=== PATIENT | male | born 1995 | race Caucasian/White ===

== ENCOUNTER 2021-08-11 17:49 | Emergency (ER) | payer MEDICAID, SELFPAY ==
[2021-08-11 18:01] VITALS: BP 128/84; PULSE 108; RESP 18; TEMP 36.7; O2SAT 96; BMI 19.5
--- NOTE | 2021-08-11 18:09 | W.ED.DENTAL ---
HPI - Dental/Oral General: Chief complaint: Dental/Oral Stated complaint: sore in mouth Time Seen by Provider: 08/11/21 18:08 History of Present Illness: Patient is a 26-year-old male comes to the ED with dental pain. Symptoms started a couple days ago. Pain is located in the right upper molar region. He has pain, tenderness and swelling of his gums. Patient is currently trying to call around to get set up with a dentist. Denies any fever, nausea or any other symptoms. Associated symptoms: Denies fever(s) or odynophagia Review of Systems Const: Denies: fever(s), chills or fatigue Eyes: Denies: change in vision or eye discomfort ENMT: Reports: dental pain; Denies: throat pain, odynophagia, nasal discharge or nasal congestion Card: Denies: chest pain, palpitations, edema, swelling of feet/ankles, dyspnea on exertion or orthopnea Resp: Denies: dyspnea, productive cough or non-productive cough GI: Denies: abdominal pain, nausea, vomiting, diarrhea, constipation or hematochezia : Denies: flank pain, difficulty urinating, dysuria or hematuria Musc: Denies: neck pain, back pain or extremity swelling Skin/Breast: Denies: rash or new lesions Neuro: Denies: headache(s), numbness in extremities or weakness in extremities [facility] ED PFSH: Medical History (Updated 08/11/21 @ 18:28 by DAMION Najera) No pertinent family history Surgical History (Updated 08/11/21 @ 18:28 by DAMION Najera) No pertinent past surgical history Physical Exam Const: COMMON NORMALS: no acute distress, patient oriented x3 and alert GENERAL APPEARANCE: cooperative and comfortable HENMT: COMMON NORMALS: normocephalic HEAD & SCALP: normocephalic MOUTH: Normal oral and palatal mucosa present TEETH & GINGIVA: Yes abnormal tooth and associated gingiva upper right second molar tender and with associated gingival edema THROAT: posterior oropharynx normal and uvula midline Eye: COMMON NORMALS: Equal, round and reactive pupils present and conjunctivae normal CONJUNCTIVA: Yes conjunctivae normal PUPIL: Yes Equal, round and reactive pupils present Neck/C-Spine: COMMON NORMALS: supple GENERAL: Yes normal visual inspection Resp: COMMON NORMALS: normal respiratory effort, No retractions, No use of accessory muscles and clear to auscultation bilaterally AUSCULTATION: clear to auscultation bilaterally Cardio: COMMON NORMALS: regular rate, regular rhythm, S1 normal heart sound present, S2 normal heart sound present, No gallops present (Cardio), No clicks present (Cardio), No murmurs present (Cardio) and Peripheral pulses 2+ throughout RATE: regular rate RHYTHM: regular rhythm HEART SOUNDS: S1 normal heart sound present and S2 normal heart sound present PERIPHERAL PULSES: Peripheral pulses 2+ throughout GI: COMMON NORMALS: Normal to inspection, nondistended, normoactive bowel sounds present, Soft to palpation, non-tender and no masses PALPATION: Yes Soft to palpation : COMMON NORMALS: Yes no CVA tenderness BLADDER/KIDNEY EXAM: Yes no CVA tenderness Back/Pelvis: COMMON NORMALS: no CVA tenderness Extremity: COMMON NORMALS: normal to inspection Neuro: COMMON NORMALS: patient oriented x3 and moves all extremities SENSORIUM/ORIENTATION: Yes alert Skin: GENERAL SKIN EXAM: dry skin Course Vital Signs: Vital signs: Vital Signs Temperature 98.1 F 08/11/21 18:01 Pulse Rate 108 H 08/11/21 18:01 Respiratory Rate 18 08/11/21 18:01 Blood Pressure 128/84 08/11/21 18:01 Pulse Oximetry 96 08/11/21 18:01 [facility] - Dental/Oral Medical Decision Making Patient is a 26-year-old male comes to the ED with dental pain. Exam shows some gingival edema and tenderness around second molar of upper right jaw. Vitals are stable and patient appears nontoxic and in no acute distress or pain. He was diagnosed with dental infection and discharged home with a prescription for clindamycin and some lidocaine viscous. Told to follow-up with dentist as soon as possible to have dental pain evaluated. Return to ED precautions given. Patient understood and agreed with plan. Discharge Plan Discharge Patient Disposition: Home Clinical Impression: Dental infection Condition: Stable Prescriptions: New clindamycin HCl 150 mg capsule 300 mg PO QID 7 Days Qty: 56 0RF Lidocaine Viscous 2 % solution 1 applic mucous membrane BID PRN (Reason: pain) Qty: 100 0RF Discharge Orders: Discharge ED (Routine); Ordered 08/11/21 Ordered By: Paras Tomlinson Discharge Diet: Regular Discharge Activity: Resume usual activity Activity Restrictions/Additional Instructions: Call a dentist and get set up with an appointment with them as soon as possible. Take medications as prescribed. Return to the ER or your medical provider if condition worsens. Please read and understand discharge instructions. Thank you for choosing [facility] for your healthcare needs today. Please realize this is an emergency room and that we are providing you with a medical screening exam and this may not be complete and all inclusive of all the testing and or work up that you may need to determine your ailment or severity of your illness. It is very important that you follow up as instructed or that you return to the Emergency Department should you have concerns or if your condition changes or worsens in any way. Coding Level of Care Code ED Bar[facility] [employer] Tacker for Audelia Fwwong Exam Comprehensive
[2021-08-11] MEDS: clindamycin 150 mg Capsule 300 MG PO (18:55)
== END 2021-08-11 18:56 | disposition home or self-care (01) ==
PROVIDERS: Emergency Provider Physician Assistant
DX: K04.7 Periapical abscess without sinus (principal)
CPT/HCPCS: 99283

== ENCOUNTER 2022-05-13 08:18 | Emergency (ER) | payer MEDICAID, SELFPAY ==
[2022-05-13 08:38] VITALS: BP 160/114; PULSE 100; RESP 14; TEMP 37.2; O2SAT 96; BMI 18.4
--- NOTE | 2022-05-13 08:42 | ED_ITS ---
HPI - General Adult General: Chief complaint: Skin/Abscess/Foreign Body Stated complaint: possible allergic reaction Time Seen by Provider: 05/13/22 08:27 Source: patient Mode of arrival: ambulatory History of Present Illness: 27-year-old male presents emergency room with severe anxiety and complains of a rash on his forearm. He related to using a new cologne. He is extremely anxious. He states he took a couple of shots befo re he came in he is mildly tachycardic he is also complaining of dental pain. He been seen several times he has been on antibiotics but it seems to persist has been referred to dentist but has not seen there. Onset (ago): hour(s) Location: mouth and upper extremity Severity: mild Pain Consistency: constant Relieving factors: none Exacerbating factors: none Associated symptoms: Reports rash; Deny chest pain, confusion, cough, diaphoresis, decreased appetite, dyspnea, fevers/chills, headache(s), malaise, nausea, palpitations, seizures, short of breath, vomiting, weakness or other Review of Systems Const: Denies: fever(s), chills, fatigue, malaise or diaphoresis ENMT: Reports: mouth pain, oral sores and dental pain; Denies: throat pain, swelling of lips/tongue, ear or mastoid pain, nasal discharge or nasal congestion Card: Denies: chest pain or palpitations Resp: Denies: dyspnea GI: Denies: nausea or vomiting Skin/Breast: Reports: rash Neuro: Denies: headache(s) or confusion PFSH ED PFSH: Medical History ADHD Broken jaw Generalized anxiety disorder Major depressive disorder No pertinent family history Panic disorder PTSD (post-traumatic stress disorder) Seizures Surgical History No pertinent past surgical history Family History Mother Anxiety Grandfather Heart disease Stroke Anxiety Dementia Social History Smoking and tobacco status: current some day smoker Alcohol intake: current Alcohol intake frequency: few times a week Alcohol type: beer and hard liquor Marital status: Single service: No Current occupational status: unemployed and disabled Current gender identity: Male Special annika needs: No Physical Exam Const: COMMON NORMALS: no acute distress GENERAL APPEARANCE: cooperative, comfortable and anxious ORIENTATION/CONSCIOUSNESS: Yes awake, Yes oriented to person, Yes oriented to place and Yes oriented to time HENMT: COMMON NORMALS: normocephalic, atraumatic and hearing grossly normal bilaterally HEAD & SCALP: normocephalic and atraumatic Resp: COMMON NORMALS: normal respiratory effort, No retractions, No use of accessory muscles and clear to auscultation bilaterally AUSCULTATION: clear to auscultation bilaterally Cardio: COMMON NORMALS: regular rate, regular rhythm and No murmurs present (Cardio) RATE: regular rate RHYTHM: regular rhythm Extremity: COMMON NORMALS: normal to inspection, capillary refill normal, no clubbing, cyanosis or edema, no calf tenderness and no pedal edema Neuro: SENSORIUM/ORIENTATION: Yes oriented to person, Yes oriented to place and Yes oriented to time Skin: OTHER: Noticed on the ulnar ridge of the right arm no vesicles no excoriation noted induration no signs of infection Course Vital Signs: Vital signs: Vital Signs Temperature 98.9 F 05/13/22 08:38 Pulse Rate 100 05/13/22 08:38 Respiratory Rate 14 05/13/22 08:38 Blood Pressure 160/114 05/13/22 08:38 Pulse Oximetry 96 05/13/22 08:38 Oxygen Delivery Me thod 05/13/22 08:38 MDM - General Adult Medical Decision Making Estuardo. He does have some swelling in gums but no identifiable abscess mostly on the right side in the upper and lower molars. There is no submandibular lympha denopathy. Discharge patient home recommend Augmentin 3 times daily for 7 days follow-up with dentist. For the rash apply triamcinolone twice daily. Medical Records I reviewed the patient's medical records. Lab Data I reviewed the patient's lab results. Discharge Plan Discharge Patient Disposition: Home Clinical Impression: Tooth disorder, Dermatitis Condition: Stable Prescriptions: New triamcinolone acetonide 0.5 % ointment 1 applic topical BID Qty: 15 0RF Rx Instructions: Apply topically to the area affected on the forearm twice daily until it resolves. Augmentin 500-125 mg tablet 1 tab PO TID Qty: 21 0RF No Action clonazepam 0.5 mg tablet 0.5 mg PO TID Qty: 90 1RF Discharge Orders: Discharge ED (Routine); Ordered 05/13/22 Ordered By: Jeff Neal Referrals: Carola Martel MD [Primary Care Provider] - Discharge Diet: Usual diet Discharge Activity: Resume usual activity Patient Instructions: Opioid Safety, Pain Management Activity Restrictions/Additional Instructions: You were seen today for pain in the right side of your jaw as well as a rash on your right forearm. For the antibiotics 1 3 times daily for 1 week and recommen d he follow-up with a dentist for the rash on the forearm recommend you apply the topical steroid twice daily until resolved. If any further problems follow- up with your primary care doctor. Coding Level of Care Code ED Children'S Tutor for Audelia Tubbs
== END 2022-05-13 09:10 | disposition home or self-care (01) ==
PROVIDERS: Emergency Provider Family Medicine; PCP Family Medicine
DX: L30.9 Dermatitis, unspecified (principal); K08.9 Disorder of teeth and supporting structures, unspecified; F17.210 Nicotine dependence, cigarettes, uncomplicated
CPT/HCPCS: 99283

== ENCOUNTER 2022-05-26 17:56 | Emergency (ER) | payer MEDICAID, SELFPAY ==
[2022-05-26 18:00] VITALS: BP 155/96; PULSE 98; RESP 19; TEMP 36.7; O2SAT 96; BMI 18.4
--- NOTE | 2022-05-26 18:22 | W.ED.SKABFB ---
HPI - Skin/Abscess/Foreign Bdy General: Chief complaint: Skin/Abscess/Foreign Body Stated complaint: poison sumac Time Seen by Provider: 05/26/22 18:22 History of Present Illness: 27-year-old male comes in today for complaints of infection to the right great toenail, poison marisela rash, and dental abscess. Patient appears nontoxic. Patient appears in no acute distress. Patient takes clonazepam routinely for his anxiety and blood pressure. Patient also reportedly drinks alcohol daily. Patient was seen on 13 May for a similar rash but did not use the steroid cream for his rash. Patient still has steroid cream. Patient wants to know what other medications he can use [id number] or otherwise to help with the itching. Patient does not take antihistamines as they interfere with his other medications. Associated symptoms: Deny fever(s), nausea or vomiting Review of Systems Const: Denies: fever(s) Card: Denies: chest pain Resp: Denies: dyspnea GI: Denies: nausea, vomiting, diarrhea or constipation Musc: Denies: neck pain Skin/Breast: Denies: rash PFSH ED PFSH: Medical History ADHD Broken jaw Generalized anxiety disorder Major depressive disorder No pertinent family history Panic disorder PTSD (post-traumatic stress disorder) Seizures Surgical History No pertinent past surgical history Family History Mother Anxiety Grandfather Heart disease Stroke Anxiety Dementia Social History Smoking and tobacco status: current some day smoker Alcohol intake: current Alcohol intake frequency: few times a week Alcohol type: beer and hard liquor Marital status: Single service: No Current occupational status: unemployed and disabled Current gender identity: Male Special annika needs: No Physical Exam Const: COMMON NORMALS: alert HENMT: COMMON NORMALS: normocephalic HEAD & SCALP: normocephalic Neck/C-Spine: COMMON NORMALS: full ROM Chest: COMMONS NORMALS: normal inspection of the chest Resp: COMMON NORMALS: normal respiratory effort Cardio: COMMON NORMALS: regular rate and regular rhythm RATE: regular rate RHYTHM: regular rhythm Extremity: COMMON NORMALS: no pedal edema Neuro: SENSORIUM/ORIENTATION: Yes alert Skin: COMMON NORMALS: turgor normal GENERAL SKIN EXAM: turgor normal Course Vital Signs: Vital signs: Vital Signs Temperature 98.0 F 05/26/22 18:00 Pulse Rate 98 05/26/22 18:00 Respiratory Rate 19 H 05/26/22 18:00 Blood Pressure 155/96 05/26/22 18:00 Pulse Oximetry 96 05/26/22 18:00 Oxygen Delivery Me thod Room Air 05/26/22 18:00 MDM - Skin/Abscess/Foreign Bdy Medicial Decision Making 27-year-old male patient comes in today for complaints of poison sumac rash and blackened toenail. On exam patient has a toenail with old subungual hematoma that he has been picking at causing redness and swelling around the outer aspect of the nail. Respirations are even lungs are clear to auscultation. Abdomen soft nontender. Skin is warm and dry. Differential diagnosis includes but not limited to contact dermatitis, paronychia, malingering, anxiety. Patient was going to be treated for paronychia with Bactrim, we will treat his poison sumac with 40 of Kenalog IM and he will continue his cream at home. Recommended [id number] calamine lotion for further comfort. Patient also make comment regarding the old abscess tooth that he has problems with times on discharge I recommended just using the Bactrim for treatment of the dental infection. Patient reported understanding. Discharge Plan Discharge Patient Disposition: Home Clinical Impression: Poison marisela dermatitis, Paronychia, Dental infection Condition: Stable Prescriptions: New sulfamethoxazole-trimethoprim 800-160 mg tablet 1 tab PO BID 10 Days Qty: 20 0RF Discontinued amoxicillin-pot clavulanate [Augmentin] 500-125 mg tablet 1 tab PO TID Qty: 21 0RF No Action clonazepam 0.5 mg tablet 0.5 mg PO TID Qty: 90 1RF triamcinolone acetonide 0.5 % ointment 1 applic topical BID Qty: 15 0RF Rx Instructions: Apply topically to the area affected on the forearm twice daily until it resolves. Discharge Orders: Discharge ED (Routine); Ordered 05/26/22 Ordered By: Christopher Mccartney Referrals: Carola Martel MD [Primary Care Provider] - Discharge Diet: Usual diet Discharge Activity: Increase activity as tolerated Patient Instructions: Connor Marisela (ED) Activity Restrictions/Additional Instructions: Continue with triamcinolone cream as prescribed last week to help with inflammation and itching. You may also use mizl-[id number]-[id number] calamine lotion for further itching and discomfort from rash. Drink plenty of water. Take antibiotic for infected toe. Follow-up with primary care in 1 week for recheck. Return to ED for new concerns. Coding Level of Care Code ED Casualty Claims Supervisor for Audelia Tubbs
[2022-05-26] MEDS: sulfamethoxazole-trimeth DS 160-800 mg Tablet 1 TAB PO (18:56)
[2022-05-26] MEDS: triamcinolone 40 mg/mL SDV IM (18:59)
== END 2022-05-26 19:08 | disposition home or self-care (01) ==
PROVIDERS: Emergency Provider Nurse Practitioner Family; PCP Family Medicine
DX: L23.7 Allergic contact dermatitis due to plants, except food (principal); L03.031 Cellulitis of right toe; K04.7 Periapical abscess without sinus; F17.210 Nicotine dependence, cigarettes, uncomplicated
CPT/HCPCS: 96372; 99284; J3301

== ENCOUNTER → 2022-07-02 08:41 | Outpatient (BNVA) | payer MEDICAID, SELFPAY | PROVIDERS: PCP Family Medicine; Referring Provider Family Medicine; Visit Provider Psychiatry & Neurology Neurology | DX: R29.90 Unspecified symptoms and signs involving the nervous system (principal); R56.9 Unspecified convulsions; F43.10 Post-traumatic stress disorder, unspecified; F41.1 Generalized anxiety disorder; G47.419 Narcolepsy without cataplexy; R31.9 Hematuria, unspecified; K92.1 Melena; G47.10 Hypersomnia, unspecified; R40.4 Transient alteration of awareness; E61.1 Iron deficiency; E53.8 Deficiency of other specified B group vitamins | CPT/HCPCS: 36415; 80053; 80306; 82306; 82607; 82746; 83735; 83921; 84443; 84481; 85025 ==

== ENCOUNTER 2022-08-08 09:30 | Oncology outpatient (recurring) (ONCR) | payer MEDICAID, SELFPAY ==
[2022-07-18] MEDS: cyanocobalamin 1,000 mcg/mL SDV 1000 MCG IM (11:08)
[2022-07-31] MEDS: cyanocobalamin 1,000 mcg/mL SDV 1000 MCG IM (09:34)
[2022-07-31 09:35] VITALS: BP 134/92; PULSE 80; RESP 16; TEMP 36.2; O2SAT 99
--- OUTSIDE RECORDS SUMMARY | 2022-08-08 10:29 | XMS_ITS | Continuity of Care Document ---
Author Name Unknown Organization [facility] Address [address] [place] [address]- Encounter 05/05/22 - 05/06/22 [facility] [address] [place] [address]- [place] Attending Physician: Jimmy PEREIRA, Derrick Garcia Referring Physician: Carola Martel MD Allergies, Adverse Reactions, Alerts No Known Allergies Medications Adderall 10 mg, By mouth, BIDPC (twice daily after meals), 0, 0, Substitution Permitted Start Date: 03/07/09 Status: Ordered albuterol 90 mcg/inh inhalation aerosol See Instructions, 0, 0, Substitution Permitted Start Date: 03/07/09 Status: Ordered Celexa 20 mg, By mouth, Daily, 0, 0, Substitution Permitted Start Date: 03/07/09 Status: Ordered Problem List Condition Confirmation Course Effective Dates Status Health [facility] Informant Ex-smoker Confirmed Active patient Procedures Procedure Date Related Diagnosis Body Site Status Jaw Completed Social History Social History Type Response Smoking Status Former smoker; Smoke less tobacco use: Never; Has the patient smoked in the last 365 days, even once? Yes; Tobacco use per day: 4 or less cigarettes(less than 1/4 pack)/day in last 30 days entered on: 01/15/19 Sex Male Patient Care team information Care Team Related Persons Name: GIVEN, NONE
[2022-08-08] MEDS: cyanocobalamin 1,000 mcg/mL SDV 1000 MCG IM (10:43)
[2022-08-08 10:46] VITALS: BP 120/78; PULSE 82; RESP 16; TEMP 36.5; O2SAT 98
== END 2022-08-08 23:59 | disposition home or self-care (01) ==
PROVIDERS: PCP Family Medicine; Visit Provider Internal Medicine Medical Oncology
DX: E53.8 Deficiency of other specified B group vitamins (principal)
CPT/HCPCS: 96372; 96401; 96402; J3420

== ENCOUNTER 2022-09-05 09:36 | Oncology outpatient (recurring) (ONCR) | payer MEDICAID, SELFPAY ==
[2022-09-05] MEDS: cyanocobalamin 1,000 mcg/mL SDV 1000 MCG IM (10:05)
[2022-09-05 10:06] VITALS: BP 131/85; PULSE 91; RESP 16; TEMP 36.2; O2SAT 99
== END 2022-09-08 23:59 | disposition home or self-care (01) ==
PROVIDERS: PCP Family Medicine; Visit Provider Internal Medicine Medical Oncology
DX: E53.8 Deficiency of other specified B group vitamins (principal)
CPT/HCPCS: 96372; J3420

== ENCOUNTER 2022-09-15 20:00 | Outpatient (CLI) | payer MEDICAID, SELFPAY | END 2022-09-15 20:01 | disposition home or self-care (01) | LOC: SLEEP 09-16 06:24 | PROVIDERS: PCP Family Medicine; Visit Provider Psychiatry & Neurology Neurology | DX: R06.83 Snoring (principal) | CPT/HCPCS: 95810 ==

== ENCOUNTER 2022-09-18 16:56 | Emergency (ER) | payer MEDICAID, SELFPAY ==
--- NOTE | 2022-09-18 17:52 | ECG_ITS ---
[facility] Test Date: 2022-09-18 Pat Name: Bong Lawson Department: Room: Gender: Male Press Maintainer: : 1995 Requested By: Brandon Barrera Order Number: [id number] Benjamin MD: Kody Gutierres M.D. Measurements Intervals Baxter Rate: 71 P: 63 ID: [id number] QRS: 79 QRSD: 99 T: 58 QT: 354 QTc: 387 Interpretive Statements SINUS RHYTHM WITH MARKED SINUS ARRHYTHMIA Compared to ECG 05/09/2018 17:00:17 ST (T wave) deviation no longer present Early repolarization no longer present Electronically Signed On 09-19-2022 9:25:59 CDT by Kody Gutierres M.D. [id number]
[2022-09-18 18:42] VITALS: BMI 18.9
[2022-09-18 18:47] VITALS: BP 121/77; PULSE 101; RESP 16; TEMP 36.8; O2SAT 96
== END 2022-09-18 20:50 | disposition left against medical advice (07) ==
PROVIDERS: Emergency Provider Family Medicine; PCP Family Medicine
DX: Z53.21 Procedure and treatment not carried out due to patient leaving prior to being seen by health care provider (principal)
CPT/HCPCS: 93005

== ENCOUNTER 2022-09-27 02:14 | Emergency (ER) | payer MEDICAID, SELFPAY ==
[2022-09-27 02:55] VITALS: PULSE 100; RESP 18; TEMP 36.9; O2SAT 98; BMI 19.2
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
== END 2022-09-27 04:55 | disposition home or self-care (01) ==
PROVIDERS: Emergency Provider Emergency Medicine; PCP Family Medicine
DX: M62.830 Muscle spasm of back (principal); S00.83XA Contusion of other part of head, initial encounter; Y04.2XXA Assault by strike against or bumped into by another person, initial encounter
CPT/HCPCS: 70450; 70486; 72125; 99284

== ENCOUNTER 2022-10-03 08:29 | Oncology outpatient (recurring) (ONCR) | payer MEDICAID, SELFPAY ==
[2022-10-03 08:25] VITALS: BP 144/81; PULSE 67; RESP 18; TEMP 36.9; O2SAT 97
[2022-10-03] MEDS: cyanocobalamin 1,000 mcg/mL SDV 1000 MCG IM (08:44)
== END 2022-10-09 23:59 | disposition home or self-care (01) ==
PROVIDERS: PCP Family Medicine; Visit Provider Internal Medicine Medical Oncology
DX: E53.8 Deficiency of other specified B group vitamins (principal)
CPT/HCPCS: 96372; J3420

== ENCOUNTER 2022-10-31 08:11 | Oncology outpatient (recurring) (ONCR) | payer MEDICAID, SELFPAY ==
[2022-10-31] MEDS: cyanocobalamin 1,000 mcg/mL SDV 1000 MCG IM (08:23)
== END 2022-11-08 23:59 | disposition home or self-care (01) ==
LOC: ONCMED 08:12
PROVIDERS: PCP Family Medicine; Visit Provider Internal Medicine Medical Oncology
DX: E53.8 Deficiency of other specified B group vitamins (principal)
CPT/HCPCS: 96372; J3420

== ENCOUNTER 2022-11-30 03:08 | Emergency (ER) | payer MEDICAID, SELFPAY ==
[2022-11-30 03:10] VITALS: BP 121/77; PULSE 83; RESP 17; TEMP 36.4; O2SAT 99; BMI 19.2
[2022-11-30 05:09] VITALS: PULSE 89; O2SAT 98
[2022-11-30 05:10] LABS: Basophils # 0.1 10^3/uL (0.0-0.1); Basophils % 1.1 %; Eosinophils % 0.6 %; Hematocrit 43.2 % (37-53); Lymphocytes # 1.9 10^3/uL (0.8-4.8); Lymphocytes % 35.2 %; Mean Corpuscular HGB Conc 33.8 g/dL (30-55); Mean Corpuscular Hemoglobin 35.9 pg (27-33); Mean Corpuscular Volume 106.1 fl (82-101); Monocytes # 0.4 10^3/uL (0.2-0.9); Monocytes % 7.2 %; Neutrophils # 2.95 10^3/uL (1.8-7.7); Neutrophils % 55.5 %; Nucleated Red Blood Cells % 0 %; Platelet Count 210 10^3/cmm (157-399); Red Blood Count 4.07 10^6/uL (3.85-5.65); Red Cell Distribution Width 11.8 % (12.1-15.1); White Blood Count 5.31 10^3/uL (3.29-11.43)
[2022-11-30 05:17] LABS: Add Urine Microscopic? NO; Charge for UA Resulting for Rev
[2022-11-30 05:18] LABS: Bilirubin Urine Neg (Negative); Blood Urine Neg (Negative); Glucose Urine UA Norm (Normal); Ketones Urine Negative (Negative); Leukocyte Esterase Urine Negative (Negative); Nitrate Urine Negative (Negative); Protein Urine Neg (Negative); Urine Appearance Clear (CLEAR); Urine Color Yellow (Yellow); Urobilinogen Urine Neg (Negative); pH Urine 6 (5-7)
[2022-11-30 05:27] LABS: Amphetamines Screen Urine Negative (Negative); Barbiturates Screen Urine Negative (Negative); Benzodiazepines Screen Urine Negative (Negative); Cocaine Screen Urine Negative (Negative); Opiate Screen Urine Negative (Negative); PCP Screen Urine Negative (Negative); THC Screen Urine Negative (Negative)
[2022-11-30 05:37] LABS: Alanine Aminotransferase 39 U/L (0-41); Albumin Level 4.1 g/dL (3.5-5.2); Alkaline Phosphatase 81 U/L (40-130); Anion Gap 11.3 (5-19); Aspartate Amino Transferase 48 U/L (0-40); Blood Urea Nitrogen 6 mg/dL (6-20); Carbon Dioxide 31 mmol/L (22-29); Chloride 103 mmol/L (98-107); Creatinine Clr Calc Pharmacy 149.3011; Globulin 3.1 g/dL (1.3-4.6); Glomerular Filtration Rate 136.3 mL/min (90-130); Glucose 130 mg/dL (65-115); Osmolality Calculated 291 mOsm/kg (285-295); Potassium 4.3 mmol/L (3.5-5.1); Salicylate 0.7 mg/dL (3-10); Sodium 141 mmol/L (136-145); Total Bilirubin 0.2 mg/dL (0.15-1.2); Total Protein 7.2 g/dL (6.6-8.7)
[2022-11-30 05:40] LABS: Acetaminophen < 5.0 ug/mL (10-30); Alcohol Level 480 mg/dL (0-10)
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
[2022-11-30 07:06] VITALS: PULSE 89; RESP 16; O2SAT 98
== END 2022-11-30 07:07 | disposition home or self-care (01) ==
PROVIDERS: Emergency Provider Emergency Medicine; PCP Family Medicine
DX: F10.129 Alcohol abuse with intoxication, unspecified (principal); F17.210 Nicotine dependence, cigarettes, uncomplicated
CPT/HCPCS: 80053; 80306; 80307; 81003; 85025; 99283

== ENCOUNTER 2022-12-11 01:07 | Emergency (ER) | payer MEDICAID, SELFPAY ==
[2022-12-11 01:14] VITALS: BP 125/75; PULSE 88; RESP 16; TEMP 36.9; O2SAT 98; BMI 19.8
--- NOTE | 2022-12-11 01:37 | W.ED.NAVMDI ---
HPI - Nausea/Vomiting/Diarrhea General: Chief complaint: Nausea/Vomiting/Diarrhea Stated complaint: Just got over covid and started Vomiting\yvon Time Seen by Provider: 12/11/22 01:19 Source: patient Mode of arrival: ambulatory Limitations: no limitations History of Present Illness: 27-year-old male states that he had eaten [employer] this evening and then roughly an hour or 2 afterward he started having vomiting diarrhea he denies any abdominal pain he states his symptoms are starting to improve states he had multiple episodes of vomiting and diarrhea. Denies any fevers denies any worsening proving factors Associated nausea: Yes Associated symtoms: Reports nausea; Denies chest pain, dysuria or headache(s) Review of Systems Const: Denies: fever(s), chills, body aches or change in appetite ENMT: Denies: throat pain or dental pain Card: Denies: chest pain Resp: Denies: dyspnea GI: Reports: nausea, vomiting and diarrhea; Denies: abdominal pain : Denies: dysuria Musc: Denies: neck pain or back pain Skin/Breast: Denies: rash Neuro: Denies: headache(s) PFSH ED PFSH: Medical History ADHD Broken jaw Generalized anxiety disorder Major depressive disorder No pertinent family history Panic disorder PTSD (post-traumatic stress disorder) Seizures Surgical History No pertinent past surgical history Family History Mother Anxiety Grandfather Heart disease Stroke Anxiety Dementia Social History Smoking and tobacco/nicotine status: current some day tobacco/nicotine user cigarettes [ Other cigarette details: go through a pack of cigarettes every 1.5 weeks] Alcohol intake: current Alcohol intake frequency: 3 or more drinks per day Alcohol type: hard liquor Substance/Drug Use: current Marital status: Single service: No Current occupational status: unemployed and disabled Current gender identity: Male Special annika needs: No Physical Exam Const: COMMON NORMALS: no acute distress, patient oriented x3 and healthy appearing HENMT: COMMON NORMALS: normocephalic and atraumatic HEAD & SCALP: normocephalic and atraumatic Eye: COMMON NORMALS: conjunctivae normal CONJUNCTIVA: Yes conjunctivae normal Neck/C-Spine: COMMON NORMALS: full ROM and supple Chest: COMMONS NORMALS: normal inspection of the chest Resp: COMMON NORMALS: normal respiratory effort Cardio: COMMON NORMALS: regular rate, regular rhythm and No murmurs present (Cardio) RATE: regular rate RHYTHM: regular rhythm GI: COMMON NORMALS: Normal to inspection, nondistended, normoactive bowel sounds present, Soft to palpation, non-tender and no masses PALPATION: Yes Soft to palpation Extremity: COMMON NORMALS: normal to inspection and full ROM Neuro: COMMON NORMALS: patient oriented x3, moves all extremities and no focal motor deficits Psych: COMMON NORMALS: mental status grossly normal, Normal thought process present and cooperative THOUGHT PROCESS: Normal thought process present Skin: COMMON NORMALS: no rashes or lesions noted and no wounds GENERAL SKIN EXAM: no rashes or lesions noted Course Vital Signs: Vital signs: Vital Signs Temperature 98.5 F 12/11/22 01:14 Pulse Rate 88 12/11/22 01:14 Respiratory Rate 16 12/11/22 01:14 Blood Pressure 125/75 12/11/22 01:14 Pulse Oximetry 98 12/11/22 01:14 Oxygen Delivery Me thod Room Air 12/11/22 01:14 MDM - Nausea/Vomiting/Diarrhea Medical Decision Making Patient presents with vomiting diarrhea is likely gastroenteritis or food poisoning he refused any blood draws refused IV meds and IV fluids. He states he is feeling improved and just like to go home we will prescribe him Zofran informed if he worsens he is return he understands agrees to plan Medical Records I reviewed the patient's medical records. No radiology studies performed this visit Discharge Plan Discharge Patient Disposition: Home Clinical Impression: Vomiting, Diarrhea Condition: Stable Prescriptions: New ondansetron 4 mg tablet,disintegrating 4 mg PO Q6H PRN (Reason: nausea and vomiting) Qty: 14 0RF No Action folic acid 1 mg tablet 1 mg PO DAILY Qty: 90 3RF clonazepam 0.5 mg tablet 0.5 mg PO TID Qty: 90 2RF methocarbamol 750 mg tablet 750 mg PO Q8H Qty: 10 0RF Discharge Orders: Discharge ED (Routine); Ordered 12/11/22 Ordered By: Korby Guillermina Referrals: Carola Martel MD [Primary Care Provider] - 1-3 days Discharge Diet: Advance as tolerated Discharge Activity: Resume usual activity Patient Instructions: Acute Nausea and Vomiting (ED) Coding Level of Care Code ED Public Records Officer for Audelia Tubbs
--- NOTE | 2022-12-11 01:38 | PC.NURSE ---
Patient refused IV and labs for Dr Sarmiento at this time.
[2022-12-11] MEDS: ondansetron 4 MG Tablet PO (01:42)
== END 2022-12-11 01:52 | disposition home or self-care (01) ==
PROVIDERS: Emergency Provider Emergency Medicine; PCP Family Medicine
DX: R11.11 Vomiting without nausea (principal); R19.7 Diarrhea, unspecified; F17.210 Nicotine dependence, cigarettes, uncomplicated
CPT/HCPCS: 99283; Q0162

== ENCOUNTER 2023-01-19 01:24 | Emergency (ER) | payer MEDICAID, SELFPAY ==
[2023-01-19 01:35] VITALS: BP 146/101; PULSE 106; RESP 16; TEMP 36.3; O2SAT 97
[2023-01-19] MEDS: sodium chloride 0.9% 1,000 ML 999 ML IV (01:54)
[2023-01-19 02:01] LABS: Basophils % 0.9 %; Eosinophils % 0.2 %; Hematocrit 45.5 % (37-53); Lymphocytes # 1.2 10^3/uL (0.8-4.8); Lymphocytes % 26.3 %; Mean Corpuscular HGB Conc 34.1 g/dL (30-55); Mean Corpuscular Hemoglobin 34.8 pg (27-33); Mean Platelet Volume 9.1 fL (7.4-10.4); Monocytes # 0.6 10^3/uL (0.2-0.9); Monocytes % 13.2 %; Neutrophils # 2.68 10^3/uL (1.8-7.7); Neutrophils % 59.2 %; Nucleated Red Blood Cells % 0 %; Platelet Count 170 10^3/cmm (157-399); Red Blood Count 4.46 10^6/uL (3.85-5.65); Red Cell Distribution Width 11.8 % (12.1-15.1); White Blood Count 4.53 10^3/uL (3.29-11.43)
[2023-01-19 02:17] LABS: Alanine Aminotransferase 31 U/L (0-41); Albumin Level 4.4 g/dL (3.5-5.2); Alkaline Phosphatase 110 U/L (40-130); Aspartate Amino Transferase 102 U/L (0-40); Blood Urea Nitrogen 5 mg/dL (6-20); C Reactive Protein 3.6 mg/L (0.0-4.9); Calcium 9.1 mg/dL (8.5-10.5); Carbon Dioxide 27 mmol/L (22-29); Chloride 104 mmol/L (98-107); Creatinine Clr Calc Pharmacy 146.9314; Globulin 3.7 g/dL (1.3-4.6); Glomerular Filtration Rate 135.3 mL/min (90-130); Glucose 89 mg/dL (65-115); Lipase 22 U/L (13-60); Osmolality Calculated 293 mOsm/kg (285-295); Sodium 143 mmol/L (136-145); Total Bilirubin 0.4 mg/dL (0.15-1.2); Total Protein 8.1 g/dL (6.6-8.7)
[2023-01-19 02:18] LABS: Alcohol Level 341 mg/dL (0-10)
[2023-01-19 02:31] LABS: Add Urine Microscopic? YES; Bilirubin Urine Neg (Negative); Blood Urine Neg (Negative); Glucose Urine UA Norm (Normal); Ketones Urine 1+ (Negative); Leukocyte Esterase Urine Negative (Negative); Nitrate Urine Negative (Negative); Protein Urine 1+ (Negative); Urine Appearance Clear (CLEAR); Urine Color Yellow (Yellow); Urobilinogen Urine 1 mg/dL (Negative); pH Urine 5 (5-7)
[2023-01-19 02:32] LABS: Add Urine Culture? No; Bacteria Urine TRACE /hpf; Mucus Urine 2+ /hpf; RBC Urine 0-4 /hpf (0-2); Squamous Epithelial Cell Urine 0-4 /hpf (0-5); WBC Urine 0-4 /hpf (0-5)
[2023-01-19 02:35] LABS: Amphetamines Screen Urine Negative (Negative); Barbiturates Screen Urine Negative (Negative); Benzodiazepines Screen Urine Negative (Negative); Cocaine Screen Urine Negative (Negative); Opiate Screen Urine Negative (Negative); PCP Screen Urine Negative (Negative); THC Screen Urine Negative (Negative)
[2023-01-19 02:41] VITALS: RESP 18
--- NOTE | 2023-01-19 05:06 | W.ED.NAVMDI ---
HPI - Nausea/Vomiting/Diarrhea General: Chief complaint: Nausea/Vomiting/Diarrhea Stated complaint: ABD Pain\Back Pain\Vomiting\Withdrawl Time Seen by Provider: 01/19/23 01:52 History of Present Illness: 28-year-old intoxicated male presenting with multiple complaints. He presents after being evicted from his home. He states that he believes he began to have a panic attack, and throughout the more than once. He is experiencing abdominal pain, shortness of breath, increased anxiety, etc. He denies fever. He believes he is beginning to withdraw from alcohol, because he has not had a drink in several hours. He is a daily drinker. Associated nausea: Yes Associated symtoms: Reports dizziness, nausea and palpitations; Denies change in vision, chest pain or headache(s) Review of Systems Const: Denies: fever(s), chills or body aches Eyes: Denies: change in vision Card: Reports: palpitations; Denies: chest pain Resp: Reports: dyspnea; Denies: productive cough, non-productive cough or wheezing GI: Reports: abdominal pain, nausea and vomiting; Denies: diarrhea or hematochezia Skin/Breast: Denies: rash Neuro: Reports: dizziness; Denies: headache(s), weakness in extremities or confusion PFSH ED PFSH: Medical History PTSD (post-traumatic stress disorder) Generalized anxiety disorder Seizures ADHD Broken jaw Panic disorder Major depressive disorder No pertinent family history Surgical History No pertinent past surgical history Family History Mother Anxiety Grandfather Heart disease Stroke Anxiety Dementia Social History Smoking and tobacco/nicotine status: current some day tobacco/nicotine user cigarettes [ Other cigarette details: go through a pack of cigarettes every 1.5 weeks] Alcohol intake: current Alcohol intake frequency: 3 or more drinks per day Alcohol type: hard liquor Substance/Drug Use: current Marital status: Single service: No Current occupational status: unemployed and disabled Current gender identity: Male Special annika needs: No Physical Exam Const: GENERAL APPEARANCE: cooperative and anxious; not ill appearing and not frail appearing HENMT: COMMON NORMALS: normocephalic, atraumatic and Normal external nose present HEAD & SCALP: normocephalic and atraumatic FACE & SINUS: normal facial exam and face symmetric NOSE: Normal external nose present Eye: COMMON NORMALS: Equal, round and reactive pupils present and EOMs intact bilaterally PUPIL: Yes Equal, round and reactive pupils present Neck/C-Spine: GENERAL: Yes trachea midline Chest: CHEST: Yes Symmetrical chest wall rise Resp: COMMON NORMALS: normal respiratory effort, No retractions, No use of accessory muscles and clear to auscultation bilaterally AUSCULTATION: clear to auscultation bilaterally Cardio: COMMON NORMALS: regular rhythm RATE: tachycardic RHYTHM: regular rhythm GI: COMMON NORMALS: Normal to inspection, nondistended, normoactive bowel sounds present Extremity: COMMON NORMALS: no pedal edema Neuro: CRISTAL COMA SCALE: document GCS findings [place] coma scale eye opening: Spontaneous Cristal coma scale verbal response: Orientated [place] coma scale motor response: Obey commands Cristal coma scale total score: 15 SENSORY EXAM: Yes extremities (intact) Psych: COMMON NORMALS: speech normal SPEECH: Yes normal speech Skin: COMMON NORMALS: no rashes or lesions noted GENERAL SKIN EXAM: no rashes or lesions noted Course Vital Signs: Vital signs: Vital Signs Temperature 97.3 F L 01/19/23 01:35 Pulse Rate 106 H 01/19/23 01:35 Respiratory Rate 18 01/19/23 02:41 Blood Pressure 146/101 01/19/23 01:35 Pulse Oximetry 97 01/19/23 01:35 MDM - Nausea/Vomiting/Diarrhea Medical Decision Making Immediately after the interview, patient started talking about wanting to leave. He is not suicidal or homicidal. He is quite anxious and mildly tachycardic. We encouraged him to stay for some fluid, and to get his lab results back. We started fluid, but during the bolus, he decided he would like to leave. He will be discharged. Precautions for return given. Medically, he is stable. Lab Data 01/19/23 01:45 01/19/23 01:45 Laboratory Results WBC 4.53 10^3/uL (3.29-11.43) 01/19/23 01:45 RBC 4.46 10^6/uL (3.85-5.65) 01/19/23 01:45 Hgb 15.50 g/dL (11.27-16.99) 01/19/23 01:45 Hct 45.5 % (37-53) 01/19/23 01:45 MCV 102.0 fl (82-101) H 01/19/23 01:45 MCH 34.8 pg (27-33) H 01/19/23 01:45 MCHC 34.1 g/dL (30-55) 01/19/23 01:45 RDW 11.8 % (12.1-15.1) L 01/19/23 01:45 Plt Count 170 10^3/cmm (157-399) 01/19/23 01:45 MPV 9.1 fL (7.4-10.4) 01/19/23 01:45 Neut % (Auto) 59.2 % 01/19/23 01:45 Lymph % (Auto) 26.3 % 01/19/23 01:45 Cameron % (Auto) 13.2 % 01/19/23 01:45 Eos % (Auto) 0.2 % 01/19/23 01:45 Baso % (Auto) 0.9 % 01/19/23 01:45 Neut # (Auto) 2.68 10^3/uL (1.8-7.7) 01/19/23 01:45 Lymph # (Auto) 1.2 10^3/uL (0.8-4.8) 01/19/23 01:45 Cameron # (Auto) 0.6 10^3/uL (0.2-0.9) 01/19/23 01:45 Eos # (Auto) 0.0 10^3/uL (0.0-0.8) 01/19/23 01:45 Baso # (Auto) 0.0 10^3/uL (0.0-0.1) 01/19/23 01:45 Nucleated RBC % (auto) 0 % 01/19/23 01:45 Nucleated RBCs # 0.0 /100WBC 01/19/23 01:45 PT 13.50 SECONDS (12.1-14.9) 01/19/23 01:45 INR 1.00 (0.8-1.2) 01/19/23 01:45 Sodium 143 mmol/L (136-145) 01/19/23 01:45 Potassium 4.0 mmol/L (3.5-5.1) 01/19/23 01:45 Chloride 104 mmol/L (98-107) 01/19/23 01:45 Carbon Dioxide 27 mmol/L (22-29) 01/19/23 01:45 Anion Gap 16.0 (5-19) 01/19/23 01:45 BUN 5 mg/dL (6-20) L 01/19/23 01:45 Creatinine 0.7 mg/dL (0.7-1.2) 01/19/23 01:45 GFR Calculation 135.3 mL/min (90-130) H 01/19/23 01:45 Glucose 89 mg/dL (65-115) 01/19/23 01:45 Calculated Osmolality 293 mOsm/kg (285-295) 01/19/23 01:45 Calcium 9.1 mg/dL (8.5-10.5) 01/19/23 01:45 Total Bilirubin 0.4 mg/dL (0.15-1.2) 01/19/23 01:45 AST 102 U/L (0-40) H 01/19/23 01:45 ALT 31 U/L (0-41) 01/19/23 01:45 Alkaline Phosphatase 110 U/L (40-130) 01/19/23 01:45 C-Reactive Protein 3.6 mg/L (0.0-4.9) 01/19/23 01:45 Total Protein 8.1 g/dL (6.6-8.7) 01/19/23 01:45 Albumin 4.4 g/dL (3.5-5.2) 01/19/23 01:45 Globulin 3.7 g/dL (1.3-4.6) 01/19/23 01:45 Lipase 22 U/L (13-60) 01/19/23 01:45 Urine Color Yellow (Yellow) 01/19/23 02:15 Urine Appearance Clear (CLEAR) 01/19/23 02:15 Urine pH 5 (5-7) 01/19/23 02:15 Ur Specific [place] 1.020 (1.005-1.030) 01/19/23 02:15 Urine Protein 1+ (Negative) H 01/19/23 02:15 Urine Glucose (UA) Norm (Normal) 01/19/23 02:15 Urine Ketones 1+ (Negative) H 01/19/23 02:15 Urine Blood Neg (Negative) 01/19/23 02:15 Urine Nitrate Negative (Negative) 01/19/23 02:15 Urine Bilirubin Neg (Negative) 01/19/23 02:15 Urine Urobilinogen 1 mg/dL (Negative) H 01/19/23 02:15 Ur Leukocyte Esterase Negative (Negative) 01/19/23 02:15 Urine RBC 0-4 /hpf (0-2) H 01/19/23 02:15 Urine WBC 0-4 /hpf (0-5) H 01/19/23 02:15 Ur Squamous Epith Cells 0-4 /hpf (0-5) H 01/19/23 02:15 Amorphous Sediment Not Reportable 01/19/23 02:15 Urine Bacteria Trace /hpf (NONE) 01/19/23 02:15 Urine Mucus 2+ /hpf 01/19/23 02:15 Urine Opiates Screen Negative ng/mL (Negative) 01/19/23 02:15 Ur Barbiturates Screen Negative ng/mL (Negative) 01/19/23 02:15 Ur Phencyclidine Scrn Negative ng/mL (Negative) 01/19/23 02:15 Ur Amphetamines Screen Negative ng/mL (Negative) 01/19/23 02:15 U Benzodiazepines Scrn Negative ng/mL (Negative) 01/19/23 02:15 Urine Cocaine Screen Negative ng/mL (Negative) 01/19/23 02:15 U Marijuana (THC) Screen Negative ng/mL (Negative) 01/19/23 02:15 Ethyl Alcohol 341 mg/dL (0-10) H* 01/19/23 01:45 No radiology studies performed this visit Discharge Plan Discharge Patient Disposition: Home Clinical Impression: PTSD (post-traumatic stress disorder), Generalized anxiety disorder, Vomiting Condition: Stable Prescriptions: No Action folic acid 1 mg tablet 1 mg PO DAILY Qty: 90 3RF clonazepam 0.5 mg tablet 0.5 mg PO TID Qty: 90 2RF methocarbamol 750 mg tablet 750 mg PO Q8H Qty: 10 0RF ondansetron 4 mg tablet,disintegrating 4 mg PO Q6H PRN (Reason: nausea and vomiting) Qty: 14 0RF Discharge Orders: Discharge ED (Routine); Ordered 01/19/23 Ordered By: Eligio Cole Referrals: Carola Martel MD [Primary Care Provider] - 1-3 days Patient Instructions: Panic Attack (ED) Activity Restrictions/Additional Instructions: Keep your scheduled appointments later today. Return for any thoughts or wishes to harm yourself or anyone else. 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
== END 2023-01-19 02:42 | disposition home or self-care (01) ==
PROVIDERS: Emergency Provider Emergency Medicine; PCP Family Medicine
DX: F41.1 Generalized anxiety disorder (principal); R11.11 Vomiting without nausea; F43.10 Post-traumatic stress disorder, unspecified; F17.210 Nicotine dependence, cigarettes, uncomplicated
CPT/HCPCS: 80053; 80306; 80307; 81001; 83690; 85025; 85610; 86140; 99284; J7030

== ENCOUNTER 2023-02-08 05:04 | Emergency (ER) | payer MEDICAID, SELFPAY ==
[2023-02-08 05:11] VITALS: BP 152/95; PULSE 105; RESP 17; TEMP 36.5; O2SAT 96; BMI 20.2
--- NOTE | 2023-02-08 05:11 | W.ED.GENADLT ---
HPI - General Adult General: Chief complaint: Wound/Laceration Stated complaint: Left arm lac Time Seen by Provider: 02/08/23 05:05 Source: patient Mode of arrival: ambulatory Limitations: no limitations History of Present Illness: 28-year-old male states he was playing with a knife tonight and accidentally lacerated his left forearm. Bleeding is controlled he denies any pain he is unsure when his last tetanus was. He has roughly a 3 cm laceration to the left forearm Associated symptoms: Deny chest pain, dyspnea, headache(s), nausea, rash or vomiting Review of Systems Const: Denies: fever(s), chills, body aches or change in appetite ENMT: Denies: throat pain or dental pain Card: Denies: chest pain Resp: Denies: dyspnea GI: Denies: abdominal pain, nausea, vomiting or diarrhea Musc: Denies: neck pain or back pain Skin/Breast: Denies: rash Neuro: Denies: headache(s) PFSH ED PFSH: Medical History PTSD (post-traumatic stress disorder) Generalized anxiety disorder Seizures ADHD Broken jaw Panic disorder Major depressive disorder No pertinent family history Surgical History No pertinent past surgical history Family History Mother Anxiety Grandfather Heart disease Stroke Anxiety Dementia Social History Smoking and tobacco/nicotine status: current some day tobacco/nicotine user cigarettes [ Other cigarette details: go through a pack of cigarettes every 1.5 weeks] Alcohol intake: current Alcohol intake frequency: 3 or more drinks per day Alcohol type: hard liquor Substance/Drug Use: current Marital status: Single service: No Current occupational status: unemployed and disabled Current gender identity: Male Special annika needs: No Physical Exam Const: COMMON NORMALS: no acute distress, patient oriented x3 and healthy appearing HENMT: COMMON NORMALS: normocephalic and atraumatic HEAD & SCALP: normocephalic and atraumatic Neck/C-Spine: COMMON NORMALS: full ROM and supple Chest: COMMONS NORMALS: normal inspection of the chest Resp: COMMON NORMALS: normal respiratory effort Extremity: COMMON NORMALS: full ROM NARRATIVE EXTREMITY EXAM: 3centimeter laceration noted to left forearm superficial in nature no deep structures involved bleeding controlled Neuro: COMMON NORMALS: patient oriented x3, moves all extremities and no focal motor deficits Psych: COMMON NORMALS: mental status grossly normal, Normal thought process present and cooperative THOUGHT PROCESS: Normal thought process present Skin: COMMON NORMALS: no rashes or lesions noted GENERAL SKIN EXAM: no rashes or lesions noted Procedures Laceration Laceration 1: Site: upper extremity Side (If applicable): left Size (cm): 3 Description: linear Depth: simple, single layer Local Anesthetic: lidocaine 1% Amount of anesthesia used (mL): 8 Pre-repair: wound explored, irrigated extensively and deep structures intact Skin layer closed with: nylon Size (cm): 4-0 Number of sutures: 3 Technique: simple, interrupted Course Vital Signs: Vital signs: Vital Signs Temperature 97.7 F 02/08/23 05:11 Pulse Rate 105 H 02/08/23 05:11 Respiratory Rate 17 02/08/23 05:11 Blood Pressure 152/95 02/08/23 05:11 Pulse Oximetry 96 02/08/23 05:11 Oxygen Delivery Me thod Room Air 02/08/23 05:11 MDM - General Adult Medical Decision Making Patient presents here with laceration to his left forearm laceration was repaired he is to have sutures removed in 10 to 14 days he refused his tetanus here Medical Records I reviewed the patient's medical records. No radiology studies performed this visit Discharge Plan Discharge Patient Disposition: Home Clinical Impression: Laceration Condition: Stable Prescriptions: No Action folic acid 1 mg tablet 1 mg PO DAILY Qty: 90 3RF clonazepam 0.5 mg tablet 0.5 mg PO TID Qty: 90 2RF methocarbamol 750 mg tablet 750 mg PO Q8H Qty: 10 0RF ondansetron 4 mg tablet,disintegrating 4 mg PO Q6H PRN (Reason: nausea and vomiting) Qty: 14 0RF Discharge Orders: Discharge ED (Routine); Ordered 02/08/23 Ordered By: Chyna Sarmiento Referrals: Carola Martel MD [Primary Care Provider] - Discharge Diet: Advance as tolerated Discharge Activity: Resume usual activity Patient Instructions: Care For Your Stitches (ED), Laceration (ED) Activity Restrictions/Additional Instructions: suture removal in 10-14 days Coding Level of Care Code ED 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
[2023-02-08 05:26] VITALS: RESP 14
== END 2023-02-08 05:35 | disposition home or self-care (01) ==
PROVIDERS: Emergency Provider Emergency Medicine; PCP Family Medicine
DX: S51.812A Laceration without foreign body of left forearm, initial encounter (principal); F17.210 Nicotine dependence, cigarettes, uncomplicated; W26.0XXA Contact with knife, initial encounter
CPT/HCPCS: 12002; 99282

== ENCOUNTER 2023-04-15 02:15 | Emergency (ER) | payer MEDICAID, SELFPAY ==
[2023-04-15 02:20] VITALS: BP 143/97; PULSE 81; RESP 18; TEMP 36.4; O2SAT 100; BMI 19.8
--- NOTE | 2023-04-15 02:56 | W.ED.MALEGU ---
HPI - Male Genitourinary General: Chief complaint: Urogenital-Male Stated complaint: blood in urine Time Seen by Provider: 04/15/23 02:17 History of Present Illness: Patient presents to the ER with complaints of having blood in his urine and it being stronger and smell than normal. Patient says that he thinks he may have passed a kidney stone right before he got here because it seemed to clear up. Patient said he been having an ache in his low back for the last several weeks but now it is gone as well 2. Patient is under a lot of stress and anxiety. Patient would like to have his blood alcohol checked as well as an HIV test. Patient said his last girlfriend was unfaithful to him. Patient states he is a daily drinker drinks 1/5 of alcohol a day. Patient did let lab draw x 1 but it was hemolyzed as he would not let them redraw him a second time. Then he proceeded to sign out AMA Review of Systems General: Reports: 10 or more systems reviewed and unremarkable except in HPI and below PFSH ED PFSH: Medical History PTSD (post-traumatic stress disorder) Generalized anxiety disorder Seizures ADHD Broken jaw Panic disorder Major depressive disorder No pertinent family history Surgical History No pertinent past surgical history Family History Mother Anxiety Grandfather Heart disease Stroke Anxiety Dementia Social History Smoking and tobacco/nicotine status: current some day tobacco/nicotine user cigarettes [ Other cigarette details: go through a pack of cigarettes every 1.5 weeks] Alcohol intake: current Alcohol intake frequency: 3 or more drinks per day Alcohol type: hard liquor Substance/Drug Use: current Marital status: Single service: No Current occupational status: unemployed and disabled Current gender identity: Male Special annika needs: No Physical Exam Const: COMMON NORMALS: no acute distress, average body habitus, patient oriented x3, no limitations, healthy appearing, alert and well nourished Neck/C-Spine: COMMON NORMALS: no JVD Chest: COMMONS NORMALS: normal inspection of the chest and normal palpation of entire chest wall Resp: COMMON NORMALS: normal respiratory effort, No retractions, No use of accessory muscles and clear to auscultation bilaterally AUSCULTATION: clear to auscultation bilaterally Cardio: COMMON NORMALS: no JVD, regular rate, regular rhythm, S1 normal heart sound present, S2 normal heart sound present, No gallops present (Cardio), No clicks present (Cardio), No murmurs present (Cardio) and No rub (Cardio) RATE: regular rate RHYTHM: regular rhythm HEART SOUNDS: S1 normal heart sound present and S2 normal heart sound present GI: COMMON NORMALS: Normal to inspection, nondistended, normoactive bowel sounds present, Soft to palpation, non-tender, No hepatosplenomegaly present and no masses PALPATION: Yes Soft to palpation and Yes No hepatosplenomegaly present Neuro: COMMON NORMALS: patient oriented x3 SENSORIUM/ORIENTATION: Yes alert Course Vital Signs: Vital signs: Vital Signs Temperature 97.6 F 04/15/23 02:20 Pulse Rate 81 04/15/23 02:20 Respiratory Rate 18 04/15/23 02:20 Blood Pressure 143/97 04/15/23 02:20 Pulse Oximetry 100 04/15/23 02:20 Oxygen Delivery Me thod Room Air 04/15/23 02:20 MDM - Male Medical Decision Making Upon talking to the patient after we ner[facility] lab the first time which was hemolyzed and trying to get lab the second time which she declined he decided he is wanted to refuse everything and leave AMA. Differential Diagnosis Likely urinary tract infection (Kidney stone) Lab Data I reviewed the patient's lab results. No radiology studies performed this visit Discharge Plan Discharge Patient Disposition: Left Against Medical Advice Clinical Impression: Left against medical advice Prescriptions: No Action famotidine [Pepcid] 40 mg tablet 40 mg PO DAILY Qty: 30 2RF clonazepam 1 mg tablet 1 mg PO TID Qty: 90 2RF Rx Instructions: refill on 03/26 Referrals: Carola Martel MD [Primary Care Provider] - 1 week Patient Instructions: Against Medical Advice (ED) Activity Restrictions/Additional Instructions: If you change your mind about letting us draw your labs please return to the ER. 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
== END 2023-04-15 02:55 | disposition left against medical advice (07) ==
PROVIDERS: Emergency Provider Emergency Medicine; PCP Family Medicine
DX: R31.9 Hematuria, unspecified (principal); Z53.29 Procedure and treatment not carried out because of patient's decision for other reasons; F17.210 Nicotine dependence, cigarettes, uncomplicated
CPT/HCPCS: 99281

== ENCOUNTER 2023-05-03 22:41 | Emergency (ER) | payer MEDICAID, SELFPAY ==
[2023-05-03 22:49] VITALS: BP 125/88; PULSE 105; RESP 17; TEMP 36.4; O2SAT 100; BMI 19.0
--- NOTE | 2023-05-03 23:09 | W.ED.SKABFB ---
HPI - Skin/Abscess/Foreign Bdy General: Chief complaint: Skin/Abscess/Foreign Body Stated complaint: Rash\Bites Time Seen by Provider: 05/03/23 23:00 History of Present Illness: 28-year-old male patient comes in today with punctate lesions to the body which she complains of itching. Patient appears nontoxic. Patient appears no acute distress. Patient also complains of sore throat. Review of Systems General: Reports: 10 or more systems reviewed and unremarkable except in HPI and below ENMT: Reports: throat pain Skin/Breast: Reports: rash and pruritus PFSH ED PFSH: Medical History PTSD (post-traumatic stress disorder) Generalized anxiety disorder Seizures ADHD Broken jaw Panic disorder Major depressive disorder No pertinent family history Surgical History No pertinent past surgical history Family History Mother Anxiety Grandfather Heart disease Stroke Anxiety Dementia Social History Smoking and tobacco/nicotine status: current some day tobacco/nicotine user cigarettes [ Other cigarette details: go through a pack of cigarettes every 1.5 weeks] Alcohol intake: current Alcohol intake frequency: 3 or more drinks per day Alcohol type: hard liquor Substance/Drug Use: current Marital status: Single service: No Current occupational status: unemployed and disabled Current gender identity: Male Special annika needs: No Physical Exam Const: COMMON NORMALS: alert HENMT: COMMON NORMALS: normocephalic HEAD & SCALP: normocephalic THROAT: posterior oropharynx abnormal cobblestoning Neck/C-Spine: COMMON NORMALS: full ROM Resp: COMMON NORMALS: normal respiratory effort and clear to auscultation bilaterally AUSCULTATION: clear to auscultation bilaterally Cardio: COMMON NORMALS: regular rate RATE: regular rate GI: COMMON NORMALS: Soft to palpation PALPATION: Yes Soft to palpation : COMMON NORMALS: Yes no CVA tenderness BLADDER/KIDNEY EXAM: Yes no CVA tenderness Back/Pelvis: COMMON NORMALS: no CVA tenderness Extremity: COMMON NORMALS: full ROM Neuro: SENSORIUM/ORIENTATION: Yes alert Skin: RASHES: other (Small punctate lesions generalized nontender) Course Vital Signs: Vital signs: Vital Signs Temperature 97.5 F L 05/03/23 22:49 Pulse Rate 105 H 05/03/23 22:49 Respiratory Rate 17 05/03/23 22:49 Blood Pressure 125/88 05/03/23 22:49 Pulse Oximetry 100 05/03/23 22:49 Oxygen Delivery Me thod Room Air 05/03/23 22:49 MDM - Skin/Abscess/Foreign Bdy Medicial Decision Making Patient comes in today for concerns of a rash and sore throat. Posterior pharynx showed some cobblestoning. Respirations are even lungs are clear to auscultation. Patient had a sudden small punctate lesions that he describes as itching but are nontender. Respirations are even lungs are clear to auscultation. Abdomen soft nontender. Differential diagnosis includes but not limited to contact dermatitis, insect bites, folliculitis, viral syndrome. Patient looks like he has a viral pharyngitis. Patient otherwise looks like he has some insect bites. Will treat with hydrocortisone, and dexamethasone. No radiology studies performed this visit Discharge Plan Discharge Patient Disposition: Home Clinical Impression: Insect bite Qualifiers: Encounter type: initial encounter Site of insect bite: unspecified site Qualified Code(s): W57.XXXA - Bitten or stung by nonvenomous insect and other nonvenomous arthropods, initial encounter Pharyngitis, acute Qualifiers: Pharyngitis/tonsillitis etiology: other specified organisms Qualified Code(s): J02.8 - Acute pharyngitis due to other specified organisms Condition: Stable Prescriptions: New hydrocortisone 1 % cream 1 applic topical TID PRN (Reason: itching) Qty: 28.4 0RF No Action famotidine [Pepcid] 40 mg tablet 40 mg PO DAILY Qty: 30 2RF clonazepam 1 mg tablet 1 mg PO TID Qty: 90 2RF Rx Instructions: refill on 03/26 Discharge Orders: Discharge ED (Routine); Ordered 05/03/23 Ordered By: Christopher Mccartney Referrals: Carola Martel MD [Primary Care Provider] - Discharge Diet: Usual diet Discharge Activity: Increase activity as tolerated Patient Instructions: Insect Bites and Stings Activity Restrictions/Additional Instructions: Drink plenty of water. Use Benadryl 25 mg tablets, 1 or 2 tablets every 4 hours as needed for itching. Use hydrocortisone cream to the lesions until clear. Follow-up with primary care for further instructions. Return to ED for worsening symptoms such as high fever, difficulty breathing, or new concerns. 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
[2023-05-03] MEDS: dexamethasone 10 mg/mL INJ IM (23:21)
[2023-05-03 23:28] VITALS: BP 134/70; PULSE 91; RESP 16; O2SAT 98
== END 2023-05-03 23:29 | disposition home or self-care (01) ==
PROVIDERS: Emergency Provider Nurse Practitioner Family; PCP Family Medicine
DX: J02.8 Acute pharyngitis due to other specified organisms (principal); W57.XXXA Bitten or stung by nonvenomous insect and other nonvenomous arthropods, initial encounter; F17.210 Nicotine dependence, cigarettes, uncomplicated
CPT/HCPCS: 96372; 99284; J1100

== ENCOUNTER 2023-06-17 09:36 | Emergency (ER) | payer MEDICAID, SELFPAY ==
[2023-06-17 09:39] VITALS: BP 147/101; PULSE 102; RESP 22; TEMP 36.8; O2SAT 95
[2023-06-17 10:12] LABS: Basophils # 0.1 10^3/uL (0.0-0.1); Basophils % 1.1 %; Eosinophils % 0.7 %; Hematocrit 42.5 % (37-53); Lymphocytes # 1.1 10^3/uL (0.8-4.8); Lymphocytes % 19.6 %; Mean Corpuscular HGB Conc 34.6 g/dL (30-55); Mean Corpuscular Volume 101.2 fl (82-101); Mean Platelet Volume 9.3 fL (7.4-10.4); Monocytes # 0.7 10^3/uL (0.2-0.9); Monocytes % 11.8 %; Neutrophils # 3.78 10^3/uL (1.8-7.7); Neutrophils % 66.6 %; Nucleated Red Blood Cells % 0 %; Platelet Count 203 10^3/cmm (157-399); Red Cell Distribution Width 13.9 % (12.1-15.1); White Blood Count 5.67 10^3/uL (3.29-11.43)
[2023-06-17] MEDS: LORazepam 2 mg/mL INJ 10 mL MDV IVP (10:23)
[2023-06-17 10:25] LABS: INR 1.06 (0.8-1.2)
[2023-06-17] MEDS: sodium chloride 0.9% 1,000 ML 999 ML IV (10:26)
[2023-06-17 10:29] LABS: Alanine Aminotransferase 40 U/L (0-41); Albumin Level 3.9 g/dL (3.5-5.2); Alkaline Phosphatase 106 U/L (40-130); Anion Gap 18.7 (5-19); Aspartate Amino Transferase 133 U/L (0-40); Blood Urea Nitrogen 7 mg/dL (6-20); Calcium 8.9 mg/dL (8.5-10.5); Carbon Dioxide 24 mmol/L (22-29); Chloride 100 mmol/L (98-107); Creatinine Clr Calc Pharmacy 148.9654; Globulin 3.7 g/dL (1.3-4.6); Glomerular Filtration Rate 135.3 mL/min (90-130); Glucose 96 mg/dL (65-115); Lipase 25 U/L (13-60); Osmolality Calculated 286 mOsm/kg (285-295); Potassium 3.7 mmol/L (3.5-5.1); Sodium 139 mmol/L (136-145); Total Bilirubin 0.6 mg/dL (0.15-1.2); Total Protein 7.6 g/dL (6.6-8.7)
[2023-06-17 10:30] LABS: Amphetamines Screen Urine Negative (Negative); Barbiturates Screen Urine Negative (Negative); Benzodiazepines Screen Urine Negative (Negative); Cocaine Screen Urine Negative (Negative); Opiate Screen Urine Negative (Negative); PCP Screen Urine Negative (Negative); THC Screen Urine Negative (Negative)
[2023-06-17 10:31] LABS: Alcohol Level 320 mg/dL (0-10)
[2023-06-17 10:32] VITALS: BP 134/88; PULSE 96; O2SAT 97
[2023-06-17 10:34] LABS: Ammonia 36 umol/L (16-60)
--- NOTE | 2023-06-17 11:33 | W.ED.ALCOHOL ---
HPI - Alcohol General: Chief Complaint: Alcohol Stated Complaint: detox Time Seen by Provider: 06/17/23 09:45 History of Present Illness: 28-year-old male presents to the emergency room with complaints of alcohol withdrawal.. He admits to having drank this morning. He usually drinks up to 1/5 of alcohol per day. Denies any medic easy melena hematemesis or coffee-ground emesis. [facility] ED PFSH: Medical History PTSD (post-traumatic stress disorder) Generalized anxiety disorder Seizures ADHD Broken jaw Panic disorder Major depressive disorder No pertinent family history Surgical History No pertinent past surgical history Family History Mother Anxiety Grandfather Heart disease Stroke Anxiety Dementia Social History Smoking and tobacco/nicotine status: current some day tobacco/nicotine user cigarettes [ Other cigarette details: go through a pack of cigarettes every 1.5 weeks] Alcohol intake: current Alcohol intake frequency: 3 or more drinks per day Alcohol type: hard liquor Substance/Drug Use: current Marital status: Single service: No Current occupational status: unemployed and disabled Current gender identity: Male Special annika needs: No Course Vital Signs: Vital signs: Vital Signs Temperature 98.2 F 06/17/23 12:10 Pulse Rate 96 06/17/23 12:10 Respiratory Rate 22 H 06/17/23 12:10 Blood Pressure 134/88 06/17/23 12:10 Pulse Oximetry 97 06/17/23 12:10 Oxygen Delivery Me thod Room Air 06/17/23 10:32 MDM - Alcohol Medical Decision Making Patient acutely intoxicated with a blood alcohol of 320. He is also very anxious improved after given Ativan that we have given him earlier. He has been on Klonopin in the past. I reviewed his case with Dr. Peters who is on-call for psychiatry patient has no homicidal or suicidal ideation. At this point he is obviously not medically in withdrawal. Will discharge the patient to crisis stabilization. Encouraged patient to seek assistance for achieving and maintaining sobriety. Differential Diagnosis Likely alcohol intoxication Medical Records I reviewed the patient's medical records. Lab Data I reviewed the patient's lab results. 06/17/23 10:06 06/17/23 10:06 Laboratory Results WBC 5.67 10^3/uL (3.29-11.43) 06/17/23 10:06 RBC 4.20 10^6/uL (3.85-5.65) 06/17/23 10:06 Hgb 14.70 g/dL (11.27-16.99) 06/17/23 10:06 Hct 42.5 % (37-53) 06/17/23 10:06 MCV 101.2 fl (82-101) H 06/17/23 10:06 MCH 35.0 pg (27-33) H 06/17/23 10:06 MCHC 34.6 g/dL (30-55) 06/17/23 10:06 RDW 13.9 % (12.1-15.1) 06/17/23 10:06 Plt Count 203 10^3/cmm (157-399) 06/17/23 10:06 MPV 9.3 fL (7.4-10.4) 06/17/23 10:06 Neut % (Auto) 66.6 % 06/17/23 10:06 Lymph % (Auto) 19.6 % 06/17/23 10:06 [place] % (Auto) 11.8 % 06/17/23 10:06 Eos % (Auto) 0.7 % 06/17/23 10:06 Baso % (Auto) 1.1 % 06/17/23 10:06 Neut # (Auto) 3.78 10^3/uL (1.8-7.7) 06/17/23 10:06 Lymph # (Auto) 1.1 10^3/uL (0.8-4.8) 06/17/23 10:06 [place] # (Auto) 0.7 10^3/uL (0.2-0.9) 06/17/23 10:06 Eos # (Auto) 0.0 10^3/uL (0.0-0.8) 06/17/23 10:06 Baso # (Auto) 0.1 10^3/uL (0.0-0.1) 06/17/23 10:06 Nucleated RBC % (auto) 0 % 06/17/23 10:06 Nucleated RBCs # 0.0 /100WBC 06/17/23 10:06 PT 14.20 SECONDS (12.1-14.9) 06/17/23 10:06 INR 1.06 (0.8-1.2) 06/17/23 10:06 Sodium 139 mmol/L (136-145) 06/17/23 10:06 Potassium 3.7 mmol/L (3.5-5.1) 06/17/23 10:06 Chloride 100 mmol/L (98-107) 06/17/23 10:06 Carbon Dioxide 24 mmol/L (22-29) 06/17/23 10:06 Anion Gap 18.7 (5-19) 06/17/23 10:06 BUN 7 mg/dL (6-20) 06/17/23 10:06 Creatinine 0.7 mg/dL (0.7-1.2) 06/17/23 10:06 GFR Calculation 135.3 mL/min (90-130) H 06/17/23 10:06 Glucose 96 mg/dL (65-115) 06/17/23 10:06 Calculated Osmolality 286 mOsm/kg (285-295) 06/17/23 10:06 Calcium 8.9 mg/dL (8.5-10.5) 06/17/23 10:06 Total Bilirubin 0.6 mg/dL (0.15-1.2) 06/17/23 10:06 AST 133 U/L (0-40) H 06/17/23 10:06 ALT 40 U/L (0-41) 06/17/23 10:06 Alkaline Phosphatase 106 U/L (40-130) 06/17/23 10:06 Ammonia 36 umol/L (16-60) 06/17/23 10:06 Total Protein 7.6 g/dL (6.6-8.7) 06/17/23 10:06 Albumin 3.9 g/dL (3.5-5.2) 06/17/23 10:06 Globulin 3.7 g/dL (1.3-4.6) 06/17/23 10:06 Lipase 25 U/L (13-60) 06/17/23 10:06 Urine Opiates Screen Negative ng/mL (Negative) 06/17/23 10:07 Ur Barbiturates Screen Negative ng/mL (Negative) 06/17/23 10:07 Ur Phencyclidine Scrn Negative ng/mL (Negative) 06/17/23 10:07 Ur Amphetamines Screen Negative ng/mL (Negative) 06/17/23 10:07 U Benzodiazepines Scrn Negative ng/mL (Negative) 06/17/23 10:07 Urine Cocaine Screen Negative ng/mL (Negative) 06/17/23 10:07 U Marijuana (THC) Screen Negative ng/mL (Negative) 06/17/23 10:07 Ethyl Alcohol 320 mg/dL (0-10) H* 06/17/23 10:06 No radiology studies performed this visit Discharge Plan Discharge Patient Disposition: Home Clinical Impression: Alcoholic intoxication, Generalized anxiety disorder Condition: Stable Prescriptions: No Action clonazepam 1 mg tablet 1 mg PO TID Qty: 90 2RF Discharge Orders: Discharge ED (Routine); Ordered 06/17/23 Ordered By: Jeff Nael Referrals: Carola Martel MD [Primary Care Provider] - Patient Instructions: Alcoholism, Alcohol Dependence (ED), Opioid Safety, Pain Management Activity Restrictions/Additional Instructions: Thank you for choosing [facility] for your healthcare needs today. Please realize this is an emergency room and that we are providing you with a medical screening exam and this may not be complete and all inclusive of all the testing and or work up that you may need to determine your ailment or severity of your illness. It is very important that you follow up as instructed or that you return to the Emergency Department should you have concerns or if your condition changes or worsens in any way. Recommend that you abstain from alcohol. 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
[2023-06-17 12:10] VITALS: BP 134/88; PULSE 96; RESP 22; TEMP 36.8; O2SAT 97
--- NOTE | 2023-06-17 12:13 | PC.NURSE ---
CHARGE NURSE CALLED SECURITY TO ASSIST PATIENT TO CRISIS CENTER. SECURITY STATED THAT OUR FACILITY NO LONGER ESCORTS PATIENTS TO CRISIS CENTER. PATIENT VERBALIZED UNDERSTANDING AND STATED HE AND FRIEND WOULD IMMEDIATELY GO TO CRISIS CENTER FOLLOWING DC.
== END 2023-06-17 12:13 | disposition home or self-care (01) ==
PROVIDERS: Emergency Provider Family Medicine; PCP Family Medicine
DX: F10.129 Alcohol abuse with intoxication, unspecified (principal); Y90.8 Blood alcohol level of 240 mg/100 ml or more; F41.1 Generalized anxiety disorder; F17.210 Nicotine dependence, cigarettes, uncomplicated
CPT/HCPCS: 80053; 80306; 80307; 82140; 83690; 85025; 85610; 96361; 96374; 99284; J2060; J7030

== ENCOUNTER 2023-06-17 20:29 | Inpatient (IN) | payer MEDICAID, SELFPAY ==
[2023-06-17 20:32] VITALS: BP 135/75; PULSE 103; RESP 18; TEMP 36.7; O2SAT 99
--- NOTE | 2023-06-17 20:40 | PC.NURSE ---
pt agitated in triage and had to be redirected several times to allow me to complete vital signs. patient insisted on leaving to go get a drink before completion of triage, was redirected at that time also. pt refuses to be hooked up to monitoring in room
--- NOTE | 2023-06-17 20:49 | ED_ITS ---
HPI - Alcohol 2 General: Chief Complaint: Alcohol Stated Complaint: Alcohol withdrawls Time Seen by Provider: 06/17/23 20:34 Source: patient Mode of arrival: ambulatory Limitations: no limitations History of Present Illness: Patient is a 28-year-old male presents to ED today for evaluation of alcohol withdrawal symptoms. Patient was seen here earlier today with what he believed was alcohol withdrawal symptoms. His alcohol at that time was 320. Patient states he is a longstanding alcoholic and states he has drank approximately 1/5 of hard alcohol daily over the past 7 years. Patient is currently staying in some type of sober living house. He states prior to arrival he had 2 seizures. He feels very tremulous. He states he is actively vomited. He is reporting hallucinations of seeing shadows. He complains of paresthesias to his arms. MD complaint: alcohol withdrawal Last drink: Hours (ago) Chronic alcohol use: Yes Previous visits for alcohol intoxication: Yes Recent trauma: No Associated symptoms: Reports nausea, seizure-like activity and vomiting; Deny abdominal pain or syncope Treatments prior to arrival: none Review of Systems 2 Const: Denies: fever(s), chills, body aches, fatigue or malaise Eyes: Denies: change in vision, blurry vision, photophobia, floaters or seeing flashes Card: Reports: palpitations; Denies: chest pain, irregular heart rhythm, edema, lightheadedness, syncope or pre-syncope Resp: Denies: dyspnea, productive cough, non-productive cough or chest congestion GI: Reports: nausea and vomiting; Denies: abdominal pain or diarrhea : Denies: flank pain, difficulty urinating, dysuria, urinary frequency, urinary urgency or urinary hesitancy Musc: Denies: neck pain, back pain, extremity pain or joint pain Skin/Breast: Denies: rash Neuro: Reports: headache(s), numbness in extremities, sensory changes and seizure-like activity; Denies: weakness in extremities, difficulty walking, dizziness or Slurred speech present PFSH ED 2 PFSH: Medical History PTSD (post-traumatic stress disorder) Generalized anxiety disorder Seizures ADHD Broken jaw Panic disorder Major depressive disorder No pertinent family history Surgical History No pertinent past surgical history Family History Mother Anxiety Grandfather Heart disease Stroke Anxiety Dementia Social History Smoking and tobacco/nicotine status: current some day tobacco/nicotine user cigarettes [ Other cigarette details: go through a pack of cigarettes every 1.5 weeks] Alcohol intake: current Alcohol intake frequency: 3 or more drinks per day Alcohol type: hard liquor Substance/Drug Use: current Marital status: Single service: No Current occupational status: unemployed and disabled Current gender identity: Male Special annika needs: No Physical Exam 2 Const: COMMON NORMALS: average body habitus, patient oriented x3, alert and well nourished GENERAL APPEARANCE: cooperative and anxious O RIENTATION/CONSCIOUSNESS: Yes awake, Yes oriented to person, Yes oriented to place and Yes oriented to time OTHER: tremulous, fidgety/pacing around the room Resp: COMMON NORMALS: normal respiratory effort and clear to auscultation bilaterally AUSCULTATION: clear to auscultation bilaterally Cardio: COMMON NORMALS: regular rhythm RATE: tachycardic RHYTHM: regular rhythm GI: COMMON NORMALS: Normal to inspection, nondistended, normoactive bowel sounds present, Soft to palpation and non-tender PALPATION: Yes Soft to palpation Neuro: CRISTAL COMA SCALE: document GCS findings [place] coma scale eye opening: Spontaneous Cristal coma scale verbal response: Orientated [place] coma scale motor response: Obey commands [place] coma scale total score: 15 COMMON NORMALS: patient oriented x3, moves all extremities, no focal motor deficits and no sensory deficits noted SENSORIUM/ORIENTATION: Yes alert, Yes oriented to person, Yes oriented to place and Yes oriented to time Course 2 ED course: CIWA score of over 20 upon initial presentation for active vomiting, anxiety, visual disturbances/hallucinations, paresthesias, moderately fidgety and restless, and tremor with hands extended. He reportedly had two seizures at his sober living home. Vital Signs: Vital signs: Vital Signs Temperature 98.1 F 06/17/23 20:32 Pulse Rate 98 06/17/23 21:57 Respiratory Rate 18 06/17/23 21:57 Blood Pressure 135/87 06/17/23 21:57 Pulse Oximetry 98 06/17/23 21:57 Oxygen Delivery Me thod Room Air 06/17/23 20:32 MDM - Alcohol Medical Decision Making Patient is a longstanding chronic alcoholic here for alcoholic withdrawal symptoms. Upon presentation his CIWA score is over 20. Reported seizures at home. Patient does feel quite a bit better after Ativan however I feel like symptoms are going to promptly return once this wears off. Spoke to Dr. Grimaldo for admission. Differential Diagnosis Likely alcohol withdrawal syndrome and alcohol withdrawal seizure Medical Records I reviewed the patient's medical records. Lab Data I reviewed the patient's lab results. 06/17/23 21:00 06/17/23 21:00 Laboratory Results WBC 6.38 10^3/uL (3.29-11.43) 06/17/23 21:00 RBC 3.87 10^6/uL (3.85-5.65) 06/17/23 21:00 Hgb 13.80 g/dL (11.27-16.99) 06/17/23 21:00 Hct 39.9 % (37-53) 06/17/23 21:00 MCV 103.1 fl (82-101) H 06/17/23 21:00 MCH 35.7 pg (27-33) H 06/17/23 21:00 MCHC 34.6 g/dL (30-55) 06/17/23 21:00 RDW 13.9 % (12.1-15.1) 06/17/23 21:00 Plt Count 186 10^3/cmm (157-399) 06/17/23 21:00 MPV 9.6 fL (7.4-10.4) 06/17/23 21:00 Neut % (Auto) 67.4 % 06/17/23 21:00 Lymph % (Auto) 21.2 % 06/17/23 21:00 [place] % (Auto) 10.0 % 06/17/23 21:00 Eos % (Auto) 0.2 % 06/17/23 21:00 Baso % (Auto) 0.9 % 06/17/23 21:00 Neut # (Auto) 4.30 10^3/uL (1.8-7.7) 06/17/23 21:00 Lymph # (Auto) 1.4 10^3/uL (0.8-4.8) 06/17/23 21:00 [place] # (Auto) 0.6 10^3/uL (0.2-0.9) 06/17/23 21:00 Eos # (Auto) 0.0 10^3/uL (0.0-0.8) 06/17/23 21:00 Baso # (Auto) 0.1 10^3/uL (0.0-0.1) 06/17/23 21:00 Nucleated RBC % (auto) 0 % 06/17/23 21:00 Nucleated RBCs # 0.0 /100WBC 06/17/23 21:00 Sodium 141 mmol/L (136-145) 06/17/23 21:00 Potassium 3.1 mmol/L (3.5-5.1) L 06/17/23 21:00 Chloride 99 mmol/L (98-107) 06/17/23 21:00 Carbon Dioxide 22 mmol/L (22-29) 06/17/23 21:00 Anion Gap 23.1 (5-19) H 06/17/23 21:00 BUN 6 mg/dL (6-20) 06/17/23 21:00 Creatinine 0.7 mg/dL (0.7-1.2) 06/17/23 21:00 GFR Calculation 135.3 mL/min (90-130) H 06/17/23 21:00 Glucose 78 mg/dL (65-115) 06/17/23 21:00 Calculated Osmolality 288 mOsm/kg (285-295) 06/17/23 21:00 Calcium 8.4 mg/dL (8.5-10.5) L 06/17/23 21:00 Total Bilirubin 1.3 mg/dL (0.15-1.2) H 06/17/23 21:00 AST 112 U/L (0-40) H 06/17/23 21:00 ALT 36 U/L (0-41) 06/17/23 21:00 Alkaline Phosphatase 111 U/L (40-130) 06/17/23 21:00 Total Protein 7.7 g/dL (6.6-8.7) 06/17/23 21:00 Albumin 4.2 g/dL (3.5-5.2) 06/17/23 21:00 Globulin 3.5 g/dL (1.3-4.6) 05/08/24 21:00 Salicylates < 0.3 mg/dL (3-10) L 06/17/23 21:00 Urine Opiates Screen Negative ng/mL (Negative) 06/17/23 21:54 Acetaminophen < 5.0 ug/mL (10-30) L 06/17/23 21:00 Ur Barbiturates Screen Negative ng/mL (Negative) 06/17/23 21:54 Ur Phencyclidine Scrn Negative ng/mL (Negative) 06/17/23 21:54 Ur Amphetamines Screen Negative ng/mL (Negative) 06/17/23 21:54 U Benzodiazepines Scrn Positive ng/mL (Negative) H 06/17/23 21:54 Urine Cocaine Screen Negative ng/mL (Negative) 06/17/23 21:54 U Marijuana (THC) Screen Negative ng/mL (Negative) 06/17/23 21:54 Ethyl Alcohol 76 mg/dL (0-10) H 06/17/23 21:00 No radiology studies performed this visit Discharge Plan Discharge Patient Disposition: Admitted As Inpatient Clinical Impression: Alcohol withdrawal seizure Qualifiers: Complication of substance-induced condition: with unspecified complication Q ualified Code(s): F10.939 - Alcohol use, unspecified with withdrawal, unspecified Alcohol withdrawal syndrome Qualifiers: Complication of substance-induced condition: with unspecified complication Q ualified Code(s): F10.939 - Alcohol use, unspecified with withdrawal, unspecified Condition: Stable Coding Level of Care Code ED Skein Straightener for Audelia Tubbs
[2023-06-17 21:05] VITALS: BP 147/93; PULSE 110; RESP 18; O2SAT 98
[2023-06-17] MEDS: sodium chloride 0.9% 1,000 ML 999 ML IV (21:06)
[2023-06-17 21:07] LABS: Basophils # 0.1 10^3/uL (0.0-0.1); Basophils % 0.9 %; Eosinophils % 0.2 %; Hematocrit 39.9 % (37-53); Lymphocytes # 1.4 10^3/uL (0.8-4.8); Lymphocytes % 21.2 %; Mean Corpuscular HGB Conc 34.6 g/dL (30-55); Mean Corpuscular Hemoglobin 35.7 pg (27-33); Mean Corpuscular Volume 103.1 fl (82-101); Mean Platelet Volume 9.6 fL (7.4-10.4); Monocytes # 0.6 10^3/uL (0.2-0.9); Neutrophils % 67.4 %; Nucleated Red Blood Cells % 0 %; Platelet Count 186 10^3/cmm (157-399); Red Blood Count 3.87 10^6/uL (3.85-5.65); Red Cell Distribution Width 13.9 % (12.1-15.1); White Blood Count 6.38 10^3/uL (3.29-11.43)
[2023-06-17] MEDS: multivitamin therapeutic Tablet 1 TAB PO (21:08)
[2023-06-17] MEDS: LORazepam 2 mg/mL INJ 10 mL MDV 1 MG IVP (21:11)
[2023-06-17 21:25] LABS: Alanine Aminotransferase 36 U/L (0-41); Albumin Level 4.2 g/dL (3.5-5.2); Alcohol Level 76 mg/dL (0-10); Alkaline Phosphatase 111 U/L (40-130); Anion Gap 23.1 (5-19); Aspartate Amino Transferase 112 U/L (0-40); Blood Urea Nitrogen 6 mg/dL (6-20); Calcium 8.4 mg/dL (8.5-10.5); Carbon Dioxide 22 mmol/L (22-29); Chloride 99 mmol/L (98-107); Creatinine Clr Calc Pharmacy 146.9314; Globulin 3.5 g/dL (1.3-4.6); Glomerular Filtration Rate 135.3 mL/min (90-130); Glucose 78 mg/dL (65-115); Osmolality Calculated 288 mOsm/kg (285-295); Potassium 3.1 mmol/L (3.5-5.1); Sodium 141 mmol/L (136-145); Total Bilirubin 1.3 mg/dL (0.15-1.2); Total Protein 7.7 g/dL (6.6-8.7)
[2023-06-17 21:29] LABS: Acetaminophen < 5.0 ug/mL (10-30); Salicylate < 0.3 mg/dL (3-10)
[2023-06-17 21:57] VITALS: BP 135/87; PULSE 98; RESP 18; O2SAT 98
[2023-06-17 22:09] LABS: Amphetamines Screen Urine Negative (Negative); Barbiturates Screen Urine Negative (Negative); Benzodiazepines Screen Urine Positive (Negative); Cocaine Screen Urine Negative (Negative); Opiate Screen Urine Negative (Negative); PCP Screen Urine Negative (Negative); THC Screen Urine Negative (Negative)
[2023-06-17] MEDS: potassium chloride ER 20 mEq Tablet 40 MEQ PO (22:23)
[2023-06-17 22:48] LABS: Magnesium 1.4 mg/dL (1.7-2.3)
--- NOTE | 2023-06-17 22:59 | PM.HP ---
Providers/Chief Complaint Admitting Physician: Micheal Grimaldo MD Primary Care Provider: Carola Martel MD Chief Complaint: Alcohol withdrawls History of Present Illness Bong Lawson is a 28 year old male with a past medical history of alcoholism, who presents [facility] for concerns for alcohol withdrawal. Patient tells me that his last drink of alcohol was this morning, he had a can of beer, with 2 shots of hard alcohol, does report a history of alcohol withdrawals, reports to alcohol withdrawal seizures while he was at his [facility] house, currently going through mild withdrawals he received Ativan, denies a history of delirium tremens, denies being intubated for alcohol withdrawal, denies blacking out, does report tremors, does report feeling anxious, does report seeing things that are not there at times Review of Systems Const: Denies: fever(s) Card: Reports: palpitations; Denies: chest pain Resp: Denies: dyspnea GI: Denies: abdominal pain Medications/Allergies Home Medications Medication Instructions Recorded Confirmed Last Taken Type clonazepam 1 mg tablet 1 mg PO TID #90 tabs 06/12/23 06/17/23 Unknown Rx Allergies Allergy/AdvReac Type Severity Reaction Status Date / Time cephalexin Allergy ADR-Nausea Verified 06/01/23 14:42 cyclobenzaprine Allergy ALGY-Hives Verified 06/01/23 14:42 [From Flexeril] tramadol Allergy Unknown Verified 06/01/23 14:42 PFSH Acute PFSH: Medical History PTSD (post-traumatic stress disorder) Generalized anxiety disorder Seizures ADHD Broken jaw Panic disorder Major depressive disorder No pertinent family history Surgical History No pertinent past surgical history Family History Mother Anxiety Grandfather Heart disease Stroke Anxiety Dementia Social History Smoking and tobacco/nicotine status: current some day tobacco/nicotine user cigarettes [ Other cigarette details: go through a pack of cigarettes every 1.5 weeks] Alcohol intake: current Alcohol intake frequency: 3 or more drinks per day Alcohol type: hard liquor Substance/Drug Use: current Marital status: Single service: No Current occupational status: unemployed and disabled Current gender identity: Male Special annika needs: No Vitals/I&O/Wt Last Vital Signs Temp 98.1 F 06/17/23 20:32 Pulse 98 06/17/23 21:57 Resp 18 06/17/23 21:57 BP 135/87 06/17/23 21:57 Pulse Ox 98 06/17/23 21:57 O2 Del Method Room Air 06/17/23 20:32 06/17/23 06/17/23 06/17/23 06:59 14:59 22:59 Intake Total 1000 / 1000 Balance 1000 / 1000 Weight last 48 hrs Weight 61.235 kg Physical Exam Const: COMMON NORMALS: no acute distress and patient oriented x3 Eye: COMMON NORMALS: Equal, round and reactive pupils present and EOMs intact bilaterally Resp: COMMON NORMALS: normal respiratory effort, No retractions, No use of accessory muscles and clear to auscultation bilaterally AUSCULTATION: clear to auscultation bilaterally Cardio: COMMON NORMALS: no JVD, regular rate, regular rhythm, S1 normal heart sound present and S2 normal heart sound present RATE: regular rate RHYTHM: regular rhythm HEART SOUNDS: S1 normal heart sound present and S2 normal heart sound present GI: COMMON NORMALS: Normal to inspection, nondistended, normoactive bowel sounds present, Soft to palpation and non-tender Extremity: COMMON NORMALS: no calf tenderness and no pedal edema Neuro: COMMON NORMALS: patient oriented x3, CN's II-XII intact bilaterally and moves all extremities Psych: COMMON NORMALS: mental status grossly normal Data 06/17/23 21:00 06/17/23 21:00 A&P Assessment and plan (1) Alcohol withdrawal syndrome: Qualifiers: Complication of substance-induced condition: with unspecified complication Qualified Code(s): F10.939 - Alcohol use, unspecified with withdrawal, unspecified Plan Alcohol withdrawal ? With reported alcohol withdrawal seizures ? Plan ? CIWA protocol ? Neurochecks, ? Aspiration precautions ? IV fluids ? B12, folate, thiamine ? Hypomagnesemia, replace ? Hypokalemia replace ? Lovenox for DVT prophylaxis ? CODE STATUS, patient is a DNR/DNI, he has a DNR tattooed on his chest, confirmed what DNR/DNI meant in detail, he confirms multiple times, he does not want to be resuscitated, does not want to be put on a ventilator, Attestations Medical Necessity Statement*: Patient requires hospitalization, inpatient, greater than 2 midnights, for alcohol withdrawal Diagnoses Alcohol withdrawal syndrome F10.939 Complication of substance-induced condition: with unspecified complication
[2023-06-17 23:04] VITALS: O2SAT 98
[2023-06-17 23:23] LABS: INR 1.09 (0.8-1.2)
[2023-06-17 23:38] LABS: Cholesterol 166 mg/dL (0-200); HDL Cholesterol 111 mg/dL (60-100); LDL Cholesterol Calculated 35 mg/dL (50-129); LDL HDL Ratio 0.32 RATIO (0.00-3.22); Thyroid Stimulating Hormone 1.55 uIU/mL (0.27-4.20); Triglycerides 98 mg/dL (0-150)
[2023-06-17] MEDS: pantoprazole 40 mg SDV IVP (23:40)
[2023-06-17] MEDS: magnesium sulfate premix 1 GM/100 ML PIGGYBACK IV (23:42)
[2023-06-18] VITALS (51 sets, daily range): BP systolic 105–144; BP diastolic 63–96; PULSE 52–101; RESP 12–28; TEMP 36.7–36.8; O2SAT 91–100; BMI 19.5; BMI 19.8
[2023-06-18] MEDS: sodium chloride 0.9% 1,000 ML 125 ML IV ×3 (00:18→15:16)
[2023-06-18 00:47] LABS: Estmated Average Glucose 80; Hemoglobin A1C 4.4 % (4.0-6.0)
[2023-06-18] MEDS: LORazepam 2 mg/mL INJ 10 mL MDV IVP (01:02)
--- NOTE | 2023-06-18 01:37 | PC.NURSE ---
Banana bag to be retimed for [address] Qiu orders. Unable to adjust in APR so will leave for now and scan when needed.
[2023-06-18 04:19] LABS: Basophils # 0.1 10^3/uL (0.0-0.1); Basophils % 1.2 %; Eosinophils % 0.6 %; Hematocrit 37.6 % (37-53); Lymphocytes # 1.3 10^3/uL (0.8-4.8); Mean Corpuscular Hemoglobin 35.1 pg (27-33); Mean Corpuscular Volume 106.5 fl (82-101); Mean Platelet Volume 10.2 fL (7.4-10.4); Monocytes # 0.5 10^3/uL (0.2-0.9); Monocytes % 9.4 %; Neutrophils # 3.23 10^3/uL (1.8-7.7); Neutrophils % 63.6 %; Nucleated Red Blood Cells % 0 %; Platelet Count 147 10^3/cmm (157-399); Red Blood Count 3.53 10^6/uL (3.85-5.65); Red Cell Distribution Width 13.7 % (12.1-15.1); White Blood Count 5.08 10^3/uL (3.29-11.43)
[2023-06-18 04:36] LABS: Alanine Aminotransferase 30 U/L (0-41); Albumin Level 3.3 g/dL (3.5-5.2); Alkaline Phosphatase 90 U/L (40-130); Anion Gap 17.5 (5-19); Aspartate Amino Transferase 99 U/L (0-40); Blood Urea Nitrogen 5 mg/dL (6-20); Calcium 8.2 mg/dL (8.5-10.5); Carbon Dioxide 20 mmol/L (22-29); Chloride 98 mmol/L (98-107); Globulin 2.8 g/dL (1.3-4.6); Glomerular Filtration Rate 161.6 mL/min (90-130); Glucose 59 mg/dL (65-115); Magnesium 1.8 mg/dL (1.7-2.3); Osmolality Calculated 267 mOsm/kg (285-295); Potassium 4.5 mmol/L (3.5-5.1); Sodium 131 mmol/L (136-145); Total Bilirubin 1.4 mg/dL (0.15-1.2); Total Protein 6.1 g/dL (6.6-8.7)
[2023-06-18 04:37] LABS: Creatinine Clr Calc Pharmacy 173.6057
[2023-06-18] MEDS: folic acid 1 MG, multivitamin inj 10 ML, thiamine 100 MG in sodium chloride 0.9% 1,000 ML 252.800000000000011 MG IV (07:13)
[2023-06-18] MEDS: LORazepam 2 mg Tablet PO ×3 (07:31→20:43)
[2023-06-18] MEDS: folic acid 1 mg Tablet PO (09:10)
[2023-06-18] MEDS: thiamine 100 mg Tablet PO (09:10)
[2023-06-18] MEDS: multivitamin therapeutic Tablet 1 TAB PO (09:10)
--- NOTE | 2023-06-18 14:32 | PC.NURSE ---
Police Department [place] [employer], Marisela Aguiar, called ICU to see if patient was here or not. Officer told that this nurse can not give out such information.
--- NOTE | 2023-06-18 20:03 | P.PN_ITS ---
Subjective 2 Subjective: He reports hallucinations so far have not abated. He is still feeling miserable. Not much appetite. No abdominal pain. Not vomiting at the moment. Does not smoke cigarettes. Vitals/I&O/Wt Last Vital Signs Temp 98.1 F 06/18/23 04:00 Pulse 77 06/18/23 16:30 Resp 17 06/18/23 16:30 BP 107/63 06/18/23 16:30 Pulse Ox 97 06/18/23 16:30 O2 Del Method Room Air 06/18/23 16:30 06/18/23 06/18/23 06/18/23 06:59 14:59 22:59 Intake Total 0 / 1000 2633.283 / 2633.283 1228.75 / 3862.033 Output Total 1300 / 1300 800 / 2100 Balance 0 / 1000 1333.283 / 1333.283 428.75 / 1762.033 Weight last 48 hrs Weight 60.781 kg Weight 59.874 kg Weight 61.235 kg Physical Exam 2 Narrative: He feels uncomfortable. Wrapped up in a blanket. Covering his head. Const: COMMON NORMALS: patient oriented x3 and alert GENERAL APPEARANCE: c ooperative ORIENTATION/CONSCIOUSNESS: Yes awake HENMT: COMMON NORMALS: oropharynx normal Neck/C-Spine: COMMON NORMALS: no JVD Resp: COMMON NORMALS: normal respiratory effort and clear to auscultation bilaterally AUSCULTATION: clear to auscultation bilaterally Cardio: COMMON NORMALS: no JVD, regular rhythm, S1 normal heart sound present, S2 normal heart sound present and No murmurs present (Cardio) RHYTHM: regular rhythm HEART SOUNDS: S1 normal heart sound present and S2 normal heart sound present GI: COMMON NORMALS: Normal to inspection, nondistended, normoactive bowel sounds present, Soft to palpation and non-tender PALPATION: Yes Soft to palpation Extremity: COMMON NORMALS: no joint enlargement and no pedal edema Neuro: COMMON NORMALS: patient oriented x3 and moves all extremities S ENSORIUM/ORIENTATION: Yes alert Skin: COMMON NORMALS: no rashes or lesions noted GENERAL SKIN EXAM: no rashes or lesions noted Data 06/18/23 03:44 06/18/23 03:44 A&P Assessment and plan (1) Alcohol withdrawal syndrome: Reviewed vitals, CBC, CMP, magnesium, TSH, UDS. He does not smoke cigarettes. Reviewed CIWA scores. He is no longer having hallucinations. Alcohol withdrawal appears to be improving. Transfer out of ICU to medical surgical floor. Replace hypomagnesemia with additional magnesium currently. Recheck level. Continue IV fluid hydration for now. She has no appetite at the moment was having vomiting, this is somewhat better currently. Continue clear liquids. Reassess to see when he may be able to advance diet. Discussed with disability case manager. Qualifiers: Complication of substance-induced condition: with unspecified complication Qualified Code(s): F10.939 - Alcohol use, unspecified with withdrawal, unspecified Plan Hypomagnesemia: Give additional magnesium. Recheck level. Hypokalemia: Reviewed potassium, not replaced. Recheck chemistry. ? CODE STATUS, patient is a DNR/DNI, was confirmed on admit. Attestations 2 Medical Necessity Statement*: Continue admission for assessment management of alcohol withdrawal. Diagnoses Alcohol withdrawal syndrome F10.939 Complication of substance-induced condition: with unspecified complication
[2023-06-19] VITALS (14 sets, daily range): BP systolic 114–127; BP diastolic 74–88; PULSE 53–97; RESP 13–19; TEMP 36.4; O2SAT 94–98
[2023-06-19] MEDS: pantoprazole 40 mg SDV IVP (00:06)
[2023-06-19] MEDS: sodium chloride 0.9% 1,000 ML 125 ML IV ×2 (00:08→09:10)
--- NOTE | 2023-06-19 03:12 | PC.NURSE ---
Patient refused their magnesium sulfate IV infusion. Education was provided on the side effects of low magnesium levels in their body but they still refused. Dr. Grimaldo was notified and he said it was okay.
[2023-06-19 05:27] LABS: Basophils % 0.9 %; Eosinophils % 0.7 %; Hematocrit 38.1 % (37-53); Mean Corpuscular HGB Conc 33.6 g/dL (30-55); Mean Corpuscular Hemoglobin 34.9 pg (27-33); Mean Corpuscular Volume 103.8 fl (82-101); Mean Platelet Volume 10.5 fL (7.4-10.4); Monocytes # 0.6 10^3/uL (0.2-0.9); Monocytes % 14.2 %; Neutrophils # 2.71 10^3/uL (1.8-7.7); Neutrophils % 61.2 %; Nucleated Red Blood Cells % 0 %; Platelet Count 151 10^3/cmm (157-399); Red Blood Count 3.67 10^6/uL (3.85-5.65); White Blood Count 4.43 10^3/uL (3.29-11.43)
[2023-06-19 05:47] LABS: Alanine Aminotransferase 25 U/L (0-41); Albumin Level 3.4 g/dL (3.5-5.2); Alkaline Phosphatase 92 U/L (40-130); Aspartate Amino Transferase 53 U/L (0-40); Blood Urea Nitrogen 3 mg/dL (6-20); Calcium 8.6 mg/dL (8.5-10.5); Carbon Dioxide 21 mmol/L (22-29); Chloride 100 mmol/L (98-107); Creatinine Clr Calc Pharmacy 174.5547; Glomerular Filtration Rate 161.6 mL/min (90-130); Glucose 78 mg/dL (65-115); Magnesium 1.6 mg/dL (1.7-2.3); Osmolality Calculated 275 mOsm/kg (285-295); Sodium 135 mmol/L (136-145); Total Bilirubin 1.2 mg/dL (0.15-1.2); Total Protein 6.4 g/dL (6.6-8.7)
--- NOTE | 2023-06-19 10:50 | P.DS_ITS ---
Discharge Providers Date of Admission: 06/17/23 22:55 Date of Discharge: June 19, 2023 Attending Provider at Admission: Micheal Grimaldo MD Attending Provider at Discharge: Severo Freire Primary Care Provider: Carola Martel MD Diagnoses at Discharge Discharge Diagnosis (1) Alcohol withdrawal syndrome: Status: Acute Qualifiers: Complication of substance-induced condition: with unspecified complication Qualified Code(s): F10.939 - Alcohol use, unspecified with withdrawal, unspecified Reason for Visit Reason for Visit: Alcohol withdrawls Hospital Course Hospital Course 28-year-old gentleman with alcohol use disorder, chronically drinking about 1/5 of alcohol a day, alcohol withdrawal, withdrawal related seizure, has recently joined a rehabilitation program, however, began withdrawing, presented to ER, received Ativan, was discharged, however, symptoms of withdrawal were worsening and so he returned to the hospital for admission for treatment of alcohol withdrawal. He was managed with benzodiazepine per CIWA protocol, received IV hydration as she had some vomiting, her appetite, without abdominal pain, vo miting resolved, appetite gradually improved. Initially with hallucinations, these have resolved, alcohol withdrawal gradually improving, continue with thiamine, folic acid, multivitamin supplementation. We had a discussion regarding alcohol cessation with him, risks of continued alcohol drinking, including risk of dementia, cirrhosis, gastritis, stomach cancer, withdrawal, other complications. Additionally had a discussion regarding smoking cessation and risk of smoking. Discussing with him regarding rehabilitation and he states he is currently part of the program, he is returning there at discharge once he is through the withdrawal. As per discussion with case management he also spoke with him about this and provide him with additional options. Discussing with him regarding his alcohol habits, he does have history of anxiety and panic disorder, he takes scheduled clonazepam. He states that most of the time he uses alcohol to help with the withdrawal symptoms, he wakes up in the morning and takes several sips of alcohol, then takes his clonazepam, then take some more alcohol through the day overall completing about 1/5 in a day and takes his clonazepam. Asking him what he takes to clonazepam for, states alcohol use disorder as well as anxiety and panic disorder. Discussed with him concerns regarding this medication with alcohol use disorder, with safety concerns discu ssed with him to discontinue the medication as he is at risk of mental status depression, respiratory depression, respiratory arrest, coma, especially if coadministered with alcohol. He states that his medications managed by his primary provider, he does not follow with behavioral health care. He states that he is aware of these risks and they have discussed these with his primary provider regarding benzodiazepine risk. He states that he has tried other medications to help manage anxiety including buspirone, antidepressants, without success. He does not have suicidal thohughts. Discussed with him due to risk of severe complication, disability and/or to no longer use scheduled benzodiazepines until follow-up with behavioral health care especially with concomitant alcohol use, and avoid standing benzodiazepines for panic disorder due to the above concerns as well as concerns of tolerance. Additionally scheduled benzodiazepines can make treatment of withdrawal much more difficult and symptoms more severe with required benzodiazepine tolerance. Discussed we will refer him for follow-up with behavioral health care. Discussed with him alcohol use disorder unfortunately provides only temporary relief for anxiety, panic disorder, PTSD, eventually worsening the underlying conditions. It appears he has not previously discussed medications to help with him stop drinking. Discussed with him regarding naltrexone which may be an option for him since he is not on any opiates and avoids opioids, which may help him avoid reaching for alcohol and reduce chance of relapse. He states he will consider regarding pursuing this medication. He is otherwise doing much better, CIWA scores in the mild range, he is not having any hallucinations. He could not sleep well at night due to transfer out of ICU and interruptions, but feels he will sleep better after discharge. He is no longer having nausea or vomiting, tolerating clears. He is looking forward to resuming rehabilitation. He will try some more solid oral intake prior to discharge. He knows to seek medical attention in case of any worsening or new concerning symptoms. Physical Exam Narrative: Sitting up in bed. Const: COMMON NORMALS: patient oriented x3 and alert GENERAL APPEARANCE: cooperative ORIENTATION/CONSCIOUSNESS: Yes awake HENMT: COMMON NORMALS: oropharynx normal Neck/C-Spine: COMMON NORMALS: no JVD Resp: COMMON NORMALS: normal respiratory effort and clear to auscultation bilaterally AUSCULTATION: clear to auscultation bilaterally Cardio: COMMON NORMALS: no JVD, regular rhythm, S1 normal heart sound present, S2 normal heart sound present and No murmurs present (Cardio) RHYTHM: regular rhythm HEART SOUNDS: S1 normal heart sound present and S2 normal heart sound present GI: COMMON NORMALS: Normal to inspection, nondistended, normoactive bowel sounds present, Soft to palpation and non-tender PALPATION: Yes Soft to palpation Extremity: COMMON NORMALS: no joint enlargement and no pedal edema Neuro: COMMON NORMALS: patient oriented x3 and moves all extremities SENSORIUM/ORIENTATION: Yes alert Skin: COMMON NORMALS: no rashes or lesions noted GENERAL SKIN EXAM: no rashes or lesions noted Discharge Data Studies Completed and Pending Pending at discharge Category Date Time Status Complete Blood Count w/Auto AM LABS Lab 06/20/23 04:00 Ordered Complete Blood Count w/Auto AM LABS Lab 06/21/23 04:00 Ordered Comprehensive Metabolic Panel AM LABS Lab 06/20/23 04:00 Ordered Comprehensive Metabolic Panel AM LABS Lab 06/21/23 04:00 Ordered Magnesium AM LABS Lab 06/20/23 04:00 Ordered Magnesium AM LABS Lab 06/21/23 04:00 Ordered Laboratory Results WBC 4.43 10^3/uL (3.29-11.43) 06/19/23 04:35 RBC 3.67 10^6/uL (3.85-5.65) L 06/19/23 04:35 Hgb 12.80 g/dL (11.27-16.99) 06/19/23 04:35 Hct 38.1 % (37-53) 06/19/23 04:35 MCV 103.8 fl (82-101) H 06/19/23 04:35 MCH 34.9 pg (27-33) H 06/19/23 04:35 MCHC 33.6 g/dL (30-55) 06/19/23 04:35 RDW 13.0 % (12.1-15.1) 06/19/23 04:35 Plt Count 151 10^3/cmm (157-399) L 06/19/23 04:35 MPV 10.5 fL (7.4-10.4) H 06/19/23 04:35 Neut % (Auto) 61.2 % 06/19/23 04:35 Lymph % (Auto) 23.0 % 06/19/23 04:35 [place] % (Auto) 14.2 % 06/19/23 04:35 Eos % (Auto) 0.7 % 06/19/23 04:35 Baso % (Auto) 0.9 % 06/19/23 04:35 Neut # (Auto) 2.71 10^3/uL (1.8-7.7) 06/19/23 04:35 Lymph # (Auto) 1.0 10^3/uL (0.8-4.8) 06/19/23 04:35 [place] # (Auto) 0.6 10^3/uL (0.2-0.9) 06/19/23 04:35 Eos # (Auto) 0.0 10^3/uL (0.0-0.8) 06/19/23 04:35 Baso # (Auto) 0.0 10^3/uL (0.0-0.1) 06/19/23 04:35 Nucleated RBC % (auto) 0 % 06/19/23 04:35 Nucleated RBCs # 0.0 /100WBC 06/19/23 04:35 PT 14.50 SECONDS (12.1-14.9) 06/17/23 21:00 INR 1.09 (0.8-1.2) 06/17/23 21:00 Sodium 135 mmol/L (136-145) L 06/19/23 04:35 Potassium 4.0 mmol/L (3.5-5.1) 06/19/23 04:35 Chloride 100 mmol/L (98-107) 06/19/23 04:35 Carbon Dioxide 21 mmol/L (22-29) L 06/19/23 04:35 Anion Gap 18.0 (5-19) 06/19/23 04:35 BUN 3 mg/dL (6-20) L 06/19/23 04:35 Creatinine 0.6 mg/dL (0.7-1.2) L 06/19/23 04:35 GFR Calculation 161.6 mL/min (90-130) H 06/19/23 04:35 Glucose 78 mg/dL (65-115) 06/19/23 04:35 Estimat Average Glucose 80 06/17/23 21:00 Hemoglobin A1c 4.4 % (4.0-6.0) 06/17/23 21:00 Calculated Osmolality 275 mOsm/kg (285-295) L 06/19/23 04:35 Calcium 8.6 mg/dL (8.5-10.5) 06/19/23 04:35 Phosphorus 3.0 mg/dL (2.5-4.5) 06/18/23 03:44 Magnesium 1.6 mg/dL (1.7-2.3) L 06/19/23 04:35 Total Bilirubin 1.2 mg/dL (0.15-1.2) 06/19/23 04:35 AST 53 U/L (0-40) H 06/19/23 04:35 ALT 25 U/L (0-41) 06/19/23 04:35 Alkaline Phosphatase 92 U/L (40-130) 06/19/23 04:35 Total Protein 6.4 g/dL (6.6-8.7) L 06/19/23 04:35 Albumin 3.4 g/dL (3.5-5.2) L 06/19/23 04:35 Globulin 3.0 g/dL (1.3-4.6) 06/19/23 04:35 Triglycerides 98 mg/dL (0-150) 06/17/23 21:00 Cholesterol 166 mg/dL (0-200) 06/17/23 21:00 LDL Cholesterol, Calc 35 mg/dL (50-129) L 06/17/23 21:00 HDL Cholesterol 111 mg/dL (60-100) H 06/17/23 21:00 LDL/HDL Ratio 0.32 RATIO (0.00-3.22) 06/17/23 21:00 Cholesterol/HDL Ratio 1.50 mg/dL (1.0-5.00) 06/17/23 21:00 TSH 1.55 uIU/mL (0.27-4.20) 06/17/23 21:00 Salicylates < 0.3 mg/dL (3-10) L 06/17/23 21:00 Urine Opiates Screen Negative ng/mL (Negative) 06/17/23 21:54 Acetaminophen < 5.0 ug/mL (10-30) L 06/17/23 21:00 Ur Barbiturates Screen Negative ng/mL (Negative) 06/17/23 21:54 Ur Phencyclidine Scrn Negative ng/mL (Negative) 06/17/23 21:54 Ur Amphetamines Screen Negative ng/mL (Negative) 06/17/23 21:54 U Benzodiazepines Scrn Positive ng/mL (Negative) H 06/17/23 21:54 Urine Cocaine Screen Negative ng/mL (Negative) 06/17/23 21:54 U Marijuana (THC) Screen Negative ng/mL (Negative) 06/17/23 21:54 Ethyl Alcohol 76 mg/dL (0-10) H 06/17/23 21:00 Vitals Last Vital Signs Temp 97.6 F 06/19/23 08:00 Pulse 83 06/19/23 08:00 Resp 14 06/19/23 08:00 BP 116/77 06/19/23 08:00 Pulse Ox 97 06/19/23 08:00 O2 Del Method Room Air 06/19/23 08:00 Discharge Plan Discharge Patient Disposition: Home Condition: Stable Prescriptions: New folic acid 1 mg Tablet 1 mg PO DAILY Qty: 90 0RF Vitamin B-1 (mononitrate) 100 mg Tablet 100 mg PO DAILY Qty: 90 0RF Thera 400 mcg Tablet 1 tab PO DAILY Qty: 90 0RF Discontinued clonazepam 1 mg tablet 1 mg PO TID Qty: 90 2RF Discharge Orders: Discharge Order (Routine); Ordered 06/19/23 Ordered By: Severo Freire Referrals: [facility] [place] [facility] [Provider Group] - 1 week (Anxiety, panic disorder, alcohol use disorder We have notified your physician's clinic of the need for a follow-up appointment to be scheduled. If you have not heard from them within the next 2 business days, please call them directly. ) Carola Martel MD [Primary Care Provider] - 06/24/23 2:00 pm Discharge Diet: Advance as tolerated Discharge Activity: Increase activity as tolerated Patient Instructions: Thiamine (By mouth), Folic Acid (By mouth), Multivitamins, Adult Formula (By mouth) (Daily Multiple Vitamins,..., How to Stop Smoking (GEN), Cigarette Smoking and Your Health (GEN), Alcohol Withdrawal (GEN), Alcohol Use Disorder (GEN) Activity Restrictions/Additional Instructions: Please continue your pursuit of rehabilitation to help you stop and avoid drinking any alcohol. Further alcohol consumption will lead to additional adverse effects, including dementia, liver cirrhosis, stomach inflammation and/or cancer, pancreatitis, further episodes of alcohol withdrawal, effect on social functioning and other comorbidities. Please seek rehabilitation to help you stop. Continue thiamine, folic acid, multivitamin to help reduce chance of progression to dementia, however, on their own they are not sufficient and alcohol has to be avoided. Please do not resume clonazepam until a follow-up with behavioral health care. Combination of benzodiazepine and alcohol can lead to deadly suppression of alertness and breathing, risking, and/or . Additionally scheduled benzodiazepines will make treatment of withdrawal more severe/difficult to treat as discussed as well. Please discuss with Behavioral Health photogrammetric compilation specialist options for treatment of anxiety with panic disorder avoiding scheduled benzodiazepine. As discussed this morning, revisited with your primary provider and/your behavioral health care provider your thoughts about starting naltrexone to help you reduce instances of reaching back alcohol and relapses. Avoid smoking cigarettes due to risk of lung disease, lung cancer, mouth, throat, stomach and colon cancer and other cancers as well as risk of heart attack and stroke. Return to emergency department in case of any worsening or new concerning symptoms. Discharge Attestations Time Spent in Discharge Care*: greater than 30 min Quality Metrics Clinical Quality Measures [ No reported AMI, CVA or VTE this stay] Coding Level of Care Code 89618 Total time (in minutes) for Discharge: 70 Diagnoses Alcohol withdrawal syndrome F10.939 Complication of substance-induced condition: with unspecified complication
--- NOTE | 2023-06-19 11:08 | PC.SOCIAL ---
AA & Rehab Information provided Provided pt with Alcohol resources, including AA information & [employer] applications. He said he is already in a rehab program. No other needs voiced for CM.
--- NOTE | 2023-06-19 12:04 | PC.NURSE ---
patient verbalized understanding of discharge instructions, home medications, and follow up appointments. discussed discontinuing home anxiety medication clonazepam, and dangers of mixing benzodiazapine medications with alcohol. patient stated that he has received this education before, but will not be discontinuing his clonazepam. pt directed to follow up with [facility] [place], to which the patient scoffed at. Patient requested to walk downstairs to wait for his ride. Patient took stairs to the main entrance.
== END 2023-06-19 11:50 | disposition home or self-care (01) | DRG 897 ==
LOC: ER 22:24 → ICU 22:56 → MEDSURG 06-19 05:33
PROVIDERS: Admitting Provider Family Medicine; Emergency Provider Physician Assistant; PCP Family Medicine; Visit Provider Internal Medicine
DX: F10.232 Alcohol dependence with withdrawal with perceptual disturbance (principal); E83.42 Hypomagnesemia; E87.6 Hypokalemia; Z66 Do not resuscitate
CPT/HCPCS: 36415; 80053; 80061; 80306; 80307; 83036; 83735; 84100; 84443; 85025; 85610; 94664; 96372; 96374; 96375; 96376; 99285; C9113; J1650; J2060; J3411; J3475; J3490; J7030

== ENCOUNTER 2023-07-24 10:10 | Emergency (ER) | payer MEDICAID, SELFPAY ==
[2023-07-24 10:14] VITALS: BP 146/94; PULSE 80; RESP 15; TEMP 37.1; O2SAT 99
--- NOTE | 2023-07-24 10:27 | W.ED.DENTAL ---
HPI - Dental/Oral General: Chief complaint: Dental/Oral Stated complaint: doctor referral Time Seen by Provider: 07/24/23 10:18 History of Present Illness: 28-year-old male who presents to the emergency room from retirement with dental pain. He has left lower molar pain. Most posterior molar. He has some dental caries and says it is hard to open his mouth because of the pain at this point. No obvious swelling of the jaw. No fevers. No altered mental status. Review of Systems Narrative: Constitutional symptoms: Negative except as documented in HPI. Skin symptoms: Negative except as documented in HPI. Eye symptoms: Negative except as documented in HPI. ENMT symptoms: Negative except as documented in HPI. Respiratory symptoms: Negative except as documented in HPI. Cardiovascular symptoms: Negative except as documented in HPI. Gastrointestinal symptoms: Negative except as documented in HPI. Genitourinary symptoms: Negative except as documented in HPI. Musculoskeletal symptoms: Negative except as documented in HPI. Neurologic symptoms: Negative except as documented in HPI. Psychiatric symptoms: Negative except as documented in HPI. Endocrine symptoms: Negative except as documented in HPI. [facility] ED PFSH: Medical History (Updated 07/24/23 @ 10:24 by Lynette Arevalo MD) Alcohol use disorder Alcohol withdrawal syndrome Alcohol withdrawal seizure Alcoholic intoxication PTSD (post-traumatic stress disorder) Generalized anxiety disorder Seizures ADHD Broken jaw Panic disorder Major depressive disorder No pertinent family history Surgical History No pertinent past surgical history Family History Mother Anxiety Grandfather Heart disease Stroke Anxiety Dementia Social History Smoking and tobacco/nicotine status: current some day tobacco/nicotine user cigarettes [ Other cigarette details: go through a pack of cigarettes every 1.5 weeks] Alcohol intake: current Alcohol intake frequency: 3 or more drinks per day Alcohol type: hard liquor Substance/Drug Use: current Marital status: Single service: No Current occupational status: unemployed and disabled Current gender identity: Male Special annika needs: No Physical Exam Narrative: EXAM NARRATIVE: General: Alert, no acute distress. Skin: warm and dry Head: Normocephalic Neck: Trachea midline Eye: Extraocular movements are intact. Ears, nose, mouth and throat: Oral mucosa moist. Diffuse dental caries and poor dentition. Pain and swelling over left lower most posterior molar. Tooth #17. Respiratory: Respirations are non-labored Musculoskeletal: Normal ROM Neurological: Alert and oriented, No focal neurological deficit observed. Psychiatric: Cooperative, appropriate mood & affect. Course Vital Signs: Vital signs: Vital Signs Temperature 98.7 F 07/24/23 10:14 Pulse Rate 80 07/24/23 10:14 Respiratory Rate 15 07/24/23 10:14 Blood Pressure 146/94 07/24/23 10:14 Pulse Oximetry 99 07/24/23 10:14 Oxygen Delivery Me thod Room Air 07/24/23 10:14 MDM - Dental/Oral Medical Decision Making Assessment and plan: Dental abscess ? First dose Augmentin and 800 mg ibuprofen in the emergency room. - Discharged home - Discussed plan with patient. Answered any questions. - Evaluation and treatment of this problem were appropriate in the emergency setting. No radiology studies performed this visit Discharge Plan Discharge Patient Disposition: Home Clinical Impression: Dental abscess Condition: Stable Prescriptions: New diclofenac sodium 50 mg tablet,delayed release (DR/EC) 50 mg PO Q12H Qty: 20 0RF amoxicillin-pot clavulanate 875-125 mg tablet 1 tab PO BID 10 Days Qty: 20 0RF No Action folic acid 1 mg Tablet 1 mg PO DAILY Qty: 90 0RF Vitamin B-1 (mononitrate) 100 mg Tablet 100 mg PO DAILY Qty: 90 0RF Thera 400 mcg Tablet 1 tab PO DAILY Qty: 90 0RF Discharge Orders: Discharge ED (Routine); Ordered 07/24/23 Ordered By: Lynette Arevalo Referrals: Carola Martel MD [Primary Care Provider] - Discharge Diet: Advance as tolerated Discharge Activity: Increase activity as tolerated Patient Instructions: Dental Abscess (ED) Activity Restrictions/Additional Instructions: Please follow-up with a dentist as soon as possible Thank you for choosing [facility] for your healthcare needs today. Please realize this is an emergency room and that we are providing you with a medical screening exam and this may not be complete and all inclusive of all the testing and or work up that you may need to determine your ailment or severity of your illness. You have been screened and evaluated and felt safe for discharge. Health conditions do change or evolve sometimes and as such it is important that you follow up with your Primary Doctor to be re checked, 3-5 days is a general good time frame for follow up. You are always welcome to return to the ED for re assessment if your symptoms are worsening or you have new concerns Coding Level of Care Code ED [place] for Audelia Tubbs
[2023-07-24] MEDS: amoxicillin-clav 875-125 mg Tablet 1 TAB PO (10:34)
[2023-07-24] MEDS: ibuprofen 800 mg tablet PO (10:35)
[2023-07-24 10:42] VITALS: BP 143/87; PULSE 74; O2SAT 99
[2023-07-24 10:45] VITALS: BP 143/87; PULSE 74; RESP 15; TEMP 37.1; O2SAT 99
== END 2023-07-24 10:47 | disposition home or self-care (01) ==
PROVIDERS: Emergency Provider Emergency Medicine; PCP Family Medicine
DX: K04.7 Periapical abscess without sinus (principal); F17.210 Nicotine dependence, cigarettes, uncomplicated
CPT/HCPCS: 99283

== ENCOUNTER 2023-08-07 01:56 | Emergency (ER) | payer MEDICAID, SELFPAY ==
--- NOTE | 2023-08-07 01:56 | ECG_ITS ---
[facility] Test Date: 2023-08-07 Pat Name: Bong Lawson Department: Room: Gender: Male Entry Level Management: : 1995 Requested By: Robert Rogers Order Number: [id number] Sourav MD: Terry Restrepo M.D. Measurements Intervals [place] Rate: 62 P: 27 GA: 144 QRS: 35 QRSD: 101 T: 36 QT: 381 QTc: 390 Interpretive Statements SINUS RHYTHM WITH MARKED SINUS ARRHYTHMIA POSSIBLE RIGHT VENTRICULAR CONDUCTION DELAY [RSR (QR) IN V1/V2] Compared to ECG 09/18/2022 18:56:39 No significant changes Electronically Signed On 08-07-2023 20:38:15 CDT by Terry Restrepo M.D. [email or web address]
[2023-08-07 01:57] VITALS: BP 124/86; PULSE 70; RESP 17; TEMP 36.6; O2SAT 100; BMI 20.7
[2023-08-07 02:14] LABS: Basophils % 0.4 %; Eosinophils # 0.2 10^3/uL (0.0-0.8); Eosinophils % 2.5 %; Hematocrit 43.4 % (37-53); Lymphocytes # 2.3 10^3/uL (0.8-4.8); Lymphocytes % 31.1 %; Mean Corpuscular HGB Conc 33.9 g/dL (30-55); Mean Corpuscular Volume 97.3 fl (82-101); Mean Platelet Volume 10.9 fL (7.4-10.4); Monocytes # 0.7 10^3/uL (0.2-0.9); Monocytes % 9.3 %; Neutrophils # 4.22 10^3/uL (1.8-7.7); Neutrophils % 56.4 %; Nucleated Red Blood Cells % 0 %; Platelet Count 266 10^3/cmm (157-399); Red Blood Count 4.46 10^6/uL (3.85-5.65); Red Cell Distribution Width 11.9 % (12.1-15.1); White Blood Count 7.49 10^3/uL (3.29-11.43)
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
[2023-08-07 02:41] LABS: Alanine Aminotransferase 17 U/L (0-41); Albumin Level 4.2 g/dL (3.5-5.2); Alkaline Phosphatase 54 U/L (40-130); Anion Gap 13.1 (5-19); Aspartate Amino Transferase 14 U/L (0-40); Blood Urea Nitrogen 13 mg/dL (6-20); Calcium 9.8 mg/dL (8.5-10.5); Carbon Dioxide 29 mmol/L (22-29); Chloride 103 mmol/L (98-107); Glucose 95 mg/dL (65-115); Magnesium 1.8 mg/dL (1.7-2.3); Osmolality Calculated 292 mOsm/kg (285-295); Potassium 4.1 mmol/L (3.5-5.1); Sodium 141 mmol/L (136-145); Total Bilirubin 0.2 mg/dL (0.15-1.2); Total Protein 7.2 g/dL (6.6-8.7)
[2023-08-07 02:45] LABS: Thyroid Stimulating Hormone 2.99 uIU/mL (0.27-4.20)
[2023-08-07 02:53] LABS: Add Urine Microscopic? YES; Amphetamines Screen Urine Negative (Negative); Barbiturates Screen Urine Negative (Negative); Benzodiazepines Screen Urine Negative (Negative); Bilirubin Urine Neg (Negative); Blood Urine Neg (Negative); Cocaine Screen Urine Negative (Negative); Glucose Urine UA Norm (Normal); Ketones Urine Negative (Negative); Leukocyte Esterase Urine Negative (Negative); Nitrate Urine Negative; Opiate Screen Urine Negative (Negative); PCP Screen Urine Negative (Negative); Protein Urine Neg (Negative); THC Screen Urine Negative (Negative); Urine Appearance Slightly Cloudy (CLEAR); Urine Color Yellow (Yellow); Urobilinogen Urine Neg (Negative); pH Urine 7 (5-7)
[2023-08-07 02:54] LABS: Add Urine Culture? No; Amorphous Sediment Urine 3+ /hpf; Bacteria Urine TRACE /hpf
[2023-08-07 03:05] VITALS: BP 124/86; PULSE 70; RESP 17; TEMP 36.6; O2SAT 100
== END 2023-08-07 03:07 | disposition home or self-care (01) ==
PROVIDERS: Emergency Provider Emergency Medicine; PCP Family Medicine
DX: G40.909 Epilepsy, unspecified, not intractable, without status epilepticus (principal); F17.210 Nicotine dependence, cigarettes, uncomplicated
CPT/HCPCS: 80053; 80306; 81001; 83735; 84443; 85025; 93005; 99284

== ENCOUNTER 2023-08-29 21:18 | Emergency (ER) | payer MEDICAID, SELFPAY ==
[2023-08-29 21:19] VITALS: BP 157/102; PULSE 114; RESP 18; TEMP 36.6; O2SAT 95; BMI 20.7
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
[2023-08-29 22:42] VITALS: BP 148/89; PULSE 101; RESP 16; O2SAT 98
== END 2023-08-29 22:43 | disposition home or self-care (01) ==
PROVIDERS: Emergency Provider Emergency Medicine; PCP Family Medicine
DX: F10.90 Alcohol use, unspecified, uncomplicated (principal); F17.210 Nicotine dependence, cigarettes, uncomplicated; V89.2XXA Person injured in unspecified motor-vehicle accident, traffic, initial encounter
CPT/HCPCS: 70450; 72125; 99284

== ENCOUNTER 2023-08-30 04:40 | Emergency (ER) | payer MEDICAID, SELFPAY ==
[2023-08-30 04:44] VITALS: PULSE 104; RESP 16; TEMP 36.7; O2SAT 98
[2023-08-30 05:04] VITALS: BP 131/65; PULSE 82; RESP 16; O2SAT 95
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
[2023-08-30 06:00] VITALS: PULSE 100; RESP 13; O2SAT 96
[2023-08-30 06:32] VITALS: BP 128/79; PULSE 89; RESP 14; O2SAT 98
== END 2023-08-30 06:34 | disposition home or self-care (01) ==
PROVIDERS: Emergency Provider Emergency Medicine; PCP Family Medicine
DX: Z04.1 Encounter for examination and observation following transport accident (principal); V89.2XXA Person injured in unspecified motor-vehicle accident, traffic, initial encounter; S00.81XA Abrasion of other part of head, initial encounter; F17.210 Nicotine dependence, cigarettes, uncomplicated
CPT/HCPCS: 99281

== ENCOUNTER 2023-09-23 10:26 | Emergency (ER) | payer MEDICAID, SELFPAY ==
[2023-09-23 11:00] VITALS: BP 138/95; PULSE 92; RESP 16; TEMP 36.7; O2SAT 97; BMI 22.1
--- NOTE | 2023-09-23 11:22 | ED_ITS ---
HPI - Eye Problem General: Chief complaint: Eye Problems Stated complaint: right eye loss of vision Time Seen by Provider: 09/23/23 11:08 Source: patient and other (Significant other) Mode of arrival: ambulatory Limitations: no limitations History of Present Illness: Patient states that his right eye is blurry. He noticed that approximately 2 or so hours ago. He relates that his significant other had a deer for coat on and he was rubbing his right face and cheek against her. She states that she was able to remove some material from his eye. He states that his eye is not painful but it feels irritated and itchy. He does not wear any corrective lenses. There is no associated trauma headache or other symptoms. chief complaint: eye redness Location: right eye Eye Symptoms: redness Place: home Associated symptoms: Denies fever(s) or headache(s) Related Data Previous Rx's Medication Instructions Recorded amoxicillin 875 mg-potassium 1 tab PO BID #20 tabs 07/29/23 clavulanate 125 mg tablet clonazepam 1 mg tablet 1 mg PO BID #60 tabs 08/26/23 Allergies Allergy/AdvReac Type Severity Reaction Status Date / Time cephalexin Allergy ADR-Nausea Verified 08/30/23 04:48 cyclobenzaprine Allergy ALGY-Hives Verified 08/30/23 04:48 [From Flexeril] hydroxyzine Allergy ADR-Halluci Verified 08/30/23 04:48 nating tramadol Allergy Unknown Verified 08/30/23 04:48 Review of Systems Const: Denies: fever(s) or chills Eyes: Reports: blurry vision and eye redness; Denies: photophobia, floaters or seeing flashes ENMT: Denies: throat pain or odynophagia Skin/Breast: Denies: rash, pruritus or erythema Neuro: Denies: headache(s), numbness in extremities or weakness in extremities PFSH ED PFSH: Medical History Alcohol use disorder Alcohol withdrawal syndrome Alcohol withdrawal seizure Alcoholic intoxication PTSD (post-traumatic stress disorder) Generalized anxiety disorder Seizures ADHD Broken jaw Panic disorder Major depressive disorder No pertinent family history Surgical History No pertinent past surgical history Family History Mother Anxiety Grandfather Heart disease Stroke Anxiety Dementia Social History Smoking and tobacco/nicotine status: current some day tobacco/nicotine user cigarettes [ Other cigarette details: go through a pack of cigarettes every 1.5 weeks] Alcohol intake: current Alcohol intake frequency: 3 or more drinks per day Alcohol type: hard liquor Substance/Drug Use: current Marital status: Single service: No Current occupational status: unemployed and disabled Current gender identity: Male Special annika needs: No Physical Exam Narrative: EXAM NARRATIVE: Quite loquacious but is cooperative and appears to be in no acute distress. Const: COMMON NORMALS: no acute distress, average body habitus, patient oriented x3, healthy appearing and alert HENMT: COMMON NORMALS: normocephalic, atraumatic, Normal nasal mucous membranes and turbinates present and moist oral mucous membranes HEAD & SCALP: normocephalic and atraumatic NOSE: Normal nasal mucous membranes and turbinates present Eye: COMMON NORMALS: Equal, round and reactive pupils present and EOMs intact bilaterally EYELID: eyelids normal CONJUNCTIVA: Yes conjunctival abnormal (Mild injection of the right conjunctiva with clear drainage) CORNEA: Yes corneas normal PUPIL: Yes Equal, round and reactive pupils present OTHER: Visual acuity measured without correction is 20/30 of the involved eye (right) 20/50 of the uninvolved eye (left) Eyelid was everted without any evidence of retained foreign body. Fluorescein was used to stain the right cornea without any evidence of fluorescein uptake. Undilated funduscopic examination revealed no gross abnormalities. Neck/C-Spine: COMMON NORMALS: no lymphadenopathy Resp: COMMON NORMALS: normal respiratory effort Extremity: COMMON NORMALS: normal to inspection and full ROM Neuro: COMMON NORMALS: patient oriented x3, moves all extremities and no focal motor deficits SENSORIUM/ORIENTATION: Yes alert CRANIAL NERVES: Yes CN normal except as noted Psych: COMMON NORMALS: mental status grossly normal Skin: COMMON NORMALS: no rashes or lesions noted GENERAL SKIN EXAM: no rashes or lesions noted Course Reevaluation(s): Reevaluation #1: Despite reassuring exam in the emergency department the patient still insists that his visual acuity is foggy and abnormal. At this point my clinical examination does not reveal any obvious pathology. Go ahead and plan on referring to ophthalmology for area more detailed examination. Time: 11:44 Consultations: Consultation #1: Discussed with the PA from the ophthalmology clinic reviewed current findings and requested examination which they agreed to do. Will have the patient call the clinic as soon as he leaves here to arrange a time to come by the clinic this afternoon. Time: 11:49 Vital Signs: Vital signs: Vital Signs Temperature 98.1 F 09/23/23 11:00 Pulse Rate 92 09/23/23 11:00 Respiratory Rate 16 09/23/23 11:00 Blood Pressure 138/95 09/23/23 11:00 Pulse Oximetry 97 09/23/23 11:00 Oxygen Delivery Me thod Room Air 09/23/23 11:00 MDM - Eye Problem Medical Decision Making This patient presented as noted in history of present illness. The differential included potential retained foreign body, corneal abrasion, unlikely to represent a retinal detachment given his history, no history of trauma so not likely a penetrating foreign body, this likely is acute angular angle closure glaucoma etc. His clinical examination revealed uncorrected visual acuity which was reasonable. No evidence of fluorescein uptake, retained foreign body, or other gross findings on his clinical examination. Patient continued to have subjective visual ulcerations that were unexplainable based on my examination ability in the emergency department. He is being referred to ophthalmology for a more complete examination. No radiology studies performed this visit Discharge Plan Discharge Patient Disposition: Home Clinical Impression: Conjunctivitis Qualifiers: Conjunctivitis type: unspecified Laterality: right Qualified Code(s): H10.9 - Unspecified conjunctivitis Condition: Stable Prescriptions: No Action amoxicillin-pot clavulanate 875-125 mg tablet 1 tab PO BID Qty: 20 0RF clonazepam 1 mg tablet 1 mg PO BID Qty: 60 0RF Discharge Orders: Discharge ED (Routine); Ordered 09/23/23 Ordered By: Mike Alvarado Referrals: Carola Martel MD [Primary Care Provider] - Discharge Diet: Usual diet Discharge Activity: Resume usual activity Patient Instructions: Opioid Safety, Pain Management Activity Restrictions/Additional Instructions: Call [phone] to arrange a time to come to the eye clinic to see the eye doctor this afternoon. 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
[2023-09-23] MEDS: tetracaine 0.5% Op Soln 4 mL Btl 1 DROP EYE-RIGHT (12:07)
[2023-09-23] MEDS: fluorescein 1 mg Strip EYE-RIGHT (12:08)
== END 2023-09-23 12:09 | disposition home or self-care (01) ==
PROVIDERS: Emergency Provider Emergency Medicine; PCP Family Medicine
DX: H10.9 Unspecified conjunctivitis (principal); F17.210 Nicotine dependence, cigarettes, uncomplicated
CPT/HCPCS: 99283

== ENCOUNTER 2023-10-04 13:33 | Emergency (ER) | payer MEDICAID, SELFPAY ==
[2023-10-04 13:35] VITALS: BP 134/92; PULSE 71; RESP 14; TEMP 36.8; O2SAT 99; BMI 21.4
--- NOTE | 2023-10-04 13:45 | W.ED.GENADLT ---
HPI - General Adult General: Chief complaint: General Medical Stated complaint: not feeling well Time Seen by Provider: 10/04/23 13:35 History of Present Illness: 28-year-old male who presents emergency room with left ear pain. He says this started couple days ago. He says he had some fever yesterday. Some mild congestion. No shortness of breath. No altered mental status. No focal motor deficits. Related Data Previous Rx's Medication Instructions Recorded amoxicillin 875 mg-potassium 1 tab PO BID #20 tabs 07/29/23 clavulanate 125 mg tablet clonazepam 1 mg tablet 1 mg PO BID #60 tabs 08/26/23 cefdinir 300 mg capsule 300 mg PO BID 7 days #14 caps 10/04/23 ibuprofen 600 mg tablet 600 mg PO Q8H PRN fever or pain 10/04/23 #20 tabs Allergies Allergy/AdvReac Type Severity Reaction Status Date / Time cephalexin Allergy ADR-Nausea Verified 08/30/23 04:48 cyclobenzaprine Allergy ALGY-Hives Verified 08/30/23 04:48 [From Flexeril] hydroxyzine Allergy ADR-Halluci Verified 08/30/23 04:48 nating tramadol Allergy Unknown Verified 08/30/23 04:48 Review of Systems Narrative: Constitutional symptoms: Negative except as documented in HPI. Skin symptoms: Negative except as documented in HPI. Eye symptoms: Negative except as documented in HPI. ENMT symptoms: Negative except as documented in HPI. Respiratory symptoms: Negative except as documented in HPI. Cardiovascular symptoms: Negative except as documented in HPI. Gastrointestinal symptoms: Negative except as documented in HPI. Genitourinary symptoms: Negative except as documented in HPI. Musculoskeletal symptoms: Negative except as documented in HPI. Neurologic symptoms: Negative except as documented in HPI. Psychiatric symptoms: Negative except as documented in HPI. Endocrine symptoms: Negative except as documented in HPI. PFSH ED PFSH: Medical History Alcohol use disorder Alcohol withdrawal syndrome Alcohol withdrawal seizure Alcoholic intoxication PTSD (post-traumatic stress disorder) Generalized anxiety disorder Seizures ADHD Broken jaw Panic disorder Major depressive disorder No pertinent family history Surgical History No pertinent past surgical history Family History Mother Anxiety Grandfather Heart disease Stroke Anxiety Dementia Social History Smoking and tobacco/nicotine status: current some day tobacco/nicotine user cigarettes [ Other cigarette details: go through a pack of cigarettes every 1.5 weeks] Alcohol intake: current Alcohol intake frequency: 3 or more drinks per day Alcohol type: hard liquor Substance/Drug Use: current Marital status: Single service: No Current occupational status: unemployed and disabled Current gender identity: Male Special annika needs: No Physical Exam Narrative: EXAM NARRATIVE: General: Alert, no acute distress. Skin: warm and dry Head: Normocephalic Neck: Trachea midline Eye: Extraocular movements are intact. Ears, nose, mouth and throat: Oral mucosa moist, left TM erythematous bulging with pus behind the drum Respiratory: Respirations are non-labored Musculoskeletal: Normal ROM Neurological: Alert and oriented, No focal neurological deficit observed. Psychiatric: Cooperative, appropriate mood & affect. Course Vital Signs: Vital signs: Vital Signs Temperature 98.2 F 10/04/23 13:35 Pulse Rate 71 10/04/23 13:35 Respiratory Rate 14 10/04/23 13:35 Blood Pressure 134/92 10/04/23 13:35 Pulse Oximetry 99 10/04/23 13:35 MDM - General Adult Medical Decision Making Assessment and plan: Otitis media - Discharged home - Discussed plan with patient. Answered any questions. - Evaluation and treatment of this problem were appropriate in the emergency setting. No radiology studies performed this visit Discharge Plan Discharge Patient Disposition: Home Clinical Impression: Otitis media, left Condition: Stable Prescriptions: New cefdinir 300 mg capsule 300 mg PO BID 7 Days Qty: 14 0RF ibuprofen 600 mg tablet 600 mg PO Q8H PRN (Reason: fever or pain) Qty: 20 0RF No Action amoxicillin-pot clavulanate 875-125 mg tablet 1 tab PO BID Qty: 20 0RF clonazepam 1 mg tablet 1 mg PO BID Qty: 60 0RF Discharge Orders: Discharge ED (Routine); Ordered 10/04/23 Ordered By: Lynette Arevalo Referrals: Carola Martel MD [Primary Care Provider] - Discharge Diet: Usual diet Discharge Activity: Increase activity as tolerated Patient Instructions: Ear Infection (ED) Activity Restrictions/Additional Instructions: Thank you for choosing [facility] for your healthcare needs today. Please realize this is an emergency room and that we are providing you with a medical screening exam and this may not be complete and all inclusive of all the testing and or work up that you may need to determine your ailment or severity of your illness. You have been screened and evaluated and felt safe for discharge. Health conditions do change or evolve sometimes and as such it is important that you follow up with your Primary Doctor to be re checked, 3-5 days is a general good time frame for follow up. 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
[2023-10-04] MEDS: ibuprofen 800 mg tablet PO (13:56)
[2023-10-04] MEDS: cefdinir 300 MG CAPSULE PO (13:56)
[2023-10-04 13:59] VITALS: BP 134/92; PULSE 71; RESP 14; TEMP 36.8; O2SAT 99
== END 2023-10-04 14:01 | disposition home or self-care (01) ==
PROVIDERS: Emergency Provider Emergency Medicine; PCP Family Medicine
DX: H66.92 Otitis media, unspecified, left ear (principal); F17.210 Nicotine dependence, cigarettes, uncomplicated
CPT/HCPCS: 99283

== ENCOUNTER 2023-10-05 22:11 | Emergency (ER) | payer MEDICAID, SELFPAY ==
[2023-10-05 22:12] VITALS: BP 151/90; PULSE 81; RESP 16; TEMP 36.6; O2SAT 100; BMI 21.4
--- NOTE | 2023-10-05 23:35 | ED_ITS ---
Documented by User: DAMION Mart 10/05/23 23:41 HPI - Recheck/Abnormal Lab/Rx General: Chief Complaint: Recheck/Abnormal Lab/Rx Stated Complaint: htn Time Seen by Provider: 10/05/23 22:53 Source: patient Mode of arrival: EMS Limitations: no limitations History of Present Illness: Patient is a 28-year-old male presenting to the emergency department from care home for hypertension after a panic attack earlier today. Patient states that he is asymptomatic at this time, which is brought in as this is standard precaution. He takes clonazepam and also notes that he used alcohol to control blood pressure, however has been off of alcohol for some time while in care home. He does not report what could have triggered the panic attack, but at this time is not having any chest pain, headache, shortness of breath, or other symptoms at this time. He states he is unsure why he is here. Related Data Previous Rx's Medication Instructions Recorded amoxicillin 875 mg-potassium 1 tab PO BID #20 tabs 07/29/23 clavulanate 125 mg tablet clonazepam 1 mg tablet 1 mg PO BID #60 tabs 08/26/23 cefdinir 300 mg capsule 300 mg PO BID 7 days #14 caps 10/04/23 ibuprofen 600 mg tablet 600 mg PO Q8H PRN fever or pain 10/04/23 #20 tabs Allergies Allergy/AdvReac Type Severity Reaction Status Date / Time cephalexin Allergy ADR-Nausea Verified 08/30/23 04:48 cyclobenzaprine Allergy ALGY-Hives Verified 08/30/23 04:48 [From Flexeril] hydroxyzine Allergy ADR-Halluci Verified 08/30/23 04:48 nating tramadol Allergy Unknown Verified 08/30/23 04:48 Review of Systems General: Reports: 10 or more systems reviewed and unremarkable except in HPI and below Const: Denies: fever(s), chills or fatigue Eyes: Denies: change in vision ENMT: Denies: throat pain, ear or mastoid pain or nasal discharge Card: Denies: chest pain, palpitations, swelling of feet/ankles or lightheadedness Resp: Denies: dyspnea, productive cough or wheezing GI: Denies: abdominal pain, nausea, vomiting, diarrhea or constipation : Denies: flank pain, difficulty urinating, dysuria or urinary frequency Musc: Denies: neck pain, back pain or joint pain Skin/Breast: Denies: rash Neuro: Denies: headache(s), numbness in extremities or weakness in extremities Psych: Reports: panic attacks PFSH ED PFSH: Medical History Alcohol use disorder Alcohol withdrawal syndrome Alcohol withdrawal seizure Alcoholic intoxication PTSD (post-traumatic stress disorder) Generalized anxiety disorder Seizures ADHD Broken jaw Panic disorder Major depressive disorder No pertinent family history Surgical History No pertinent past surgical history Family History Mother Anxiety Grandfather Heart disease Stroke Anxiety Dementia Social History Smoking and tobacco/nicotine status: current some day tobacco/nicotine user cigarettes [ Other cigarette details: go through a pack of cigarettes every 1.5 weeks] Alcohol intake: current Alcohol intake frequency: 3 or more drinks per day Alcohol type: hard liquor Substance/Drug Use: current Marital status: Single service: No Current occupational status: unemployed and disabled Current gender identity: Male Special annika needs: No Physical Exam Const: COMMON NORMALS: no acute distress, patient oriented x3 and no limitations GENERAL APPEARANCE: cooperative, comfortable and well developed ORIENTATION/CONSCIOUSNESS: Yes awake, Yes oriented to person, Yes oriented to place and Yes oriented to time HENMT: COMMON NORMALS: normocephalic, atraumatic and hearing grossly normal bilaterally HEAD & SCALP: normocephalic and atraumatic Eye: COMMON NORMALS: Equal, round and reactive pupils present, EOMs intact bilaterally and conjunctivae normal CONJUNCTIVA: Yes conjunctivae normal PUPIL: Yes Equal, round and reactive pupils present Neck/C-Spine: COMMON NORMALS: full ROM, supple and no JVD Resp: COMMON NORMALS: normal respiratory effort, No retractions, No use of accessory muscles and clear to auscultation bilaterally AUSCULTATION: clear to auscultation bilaterally Cardio: COMMON NORMALS: no JVD, regular rate, regular rhythm, No clicks present (Cardio), No murmurs present (Cardio) and No rub (Cardio) RATE: regular rate RHYTHM: regular rhythm GI: COMMON NORMALS: Normal to inspection, nondistended, normoactive bowel sounds present, Soft to palpation and non-tender AUSCULTATION: Yes normoactive bowel sounds PALPATION: Yes Soft to palpation RECTAL EXAM: Yes deferred Extremity: COMMON NORMALS: normal to inspection, full ROM and capillary refill normal Neuro: COMMON NORMALS: patient oriented x3, CN's II-XII intact bilaterally, moves all extremities, no focal motor deficits and no sensory deficits noted SENSORIUM/ORIENTATION: Yes oriented to person, Yes oriented to place and Yes oriented to time Psych: COMMON NORMALS: mental status grossly normal and Normal thought process present THOUGHT PROCESS: Normal thought process present Skin: COMMON NORMALS: no rashes or lesions noted GENERAL SKIN EXAM: no rashes or lesions noted Course Vital Signs: Vital signs: Vital Signs Temperature 97.9 F 10/05/23 22:12 Pulse Rate 81 10/05/23 23:49 Respiratory Rate 16 10/05/23 22:12 Blood Pressure 155/90 10/05/23 23:49 Pulse Oximetry 100 10/05/23 23:49 MDM - Recheck/Abnormal Lab/Rx Medical Decision Making Patient brought in by ambulance from care home after panic attack, was noted to have high blood pressure at that time which he reports was 180 systolic. He reports history of high blood pressure and states he takes Klonopin as well as uses alcohol to control this, states his blood pressure has been running high anyway since he has stopped drinking alcohol while in care home. He did not tell me what could have caused his panic attack, however does note he is asymptomatic now and does not know why he is here. 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 The rest of his vitals have been stable and he thinks labs or workup is unnecessary at this time. Physical examination overall was completely normal, and we will discharge back to care home with return precautions given. He is set to be released from care home in a week and will follow-up with primary care. No radiology studies performed this visit Discharge Plan Discharge Patient Disposition: Home Clinical Impression: Panic attack Condition: Stable Prescriptions: No Action amoxicillin-pot clavulanate 875-125 mg tablet 1 tab PO BID Qty: 20 0RF clonazepam 1 mg tablet 1 mg PO BID Qty: 60 0RF cefdinir 300 mg capsule 300 mg PO BID 7 Days Qty: 14 0RF ibuprofen 600 mg tablet 600 mg PO Q8H PRN (Reason: fever or pain) Qty: 20 0RF Discharge Orders: Discharge ED (Routine); Ordered 10/05/23 Ordered By: Chase Rosas Referrals: Carola Martel MD [Primary Care Provider] - Discharge Diet: Usual diet Discharge Activity: Increase activity as tolerated Patient Instructions: Pain Management Activity Restrictions/Additional Instructions: Continue medications. Please follow-up with primary care once released from care home for reevaluation of your meds. Return with any new or concerning symptoms. 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[employer] Documented by User: Jeff Neal DO 10/08/23 00:54 HPI - Recheck/Abnormal Lab/Rx General: Chief Complaint: Recheck/Abnormal Lab/Rx Stated Complaint: htn Time Seen by Provider: 10/05/23 22:53 Related Data Previous Rx's Medication Instructions Recorded amoxicillin 875 mg-potassium 1 tab PO BID #20 tabs 07/29/23 clavulanate 125 mg tablet clonazepam 1 mg tablet 1 mg PO BID #60 tabs 08/26/23 cefdinir 300 mg capsule 300 mg PO BID 7 days #14 caps 10/04/23 ibuprofen 600 mg tablet 600 mg PO Q8H PRN fever or pain 10/04/23 #20 tabs Allergies Allergy/AdvReac Type Severity Reaction Status Date / Time cephalexin Allergy ADR-Nausea Verified 08/30/23 04:48 cyclobenzaprine Allergy ALGY-Hives Verified 08/30/23 04:48 [From Flexeril] hydroxyzine Allergy ADR-Halluci Verified 08/30/23 04:48 nating tramadol Allergy Unknown Verified 08/30/23 04:48 PFS ED PFSH: Medical History Alcohol use disorder Alcohol withdrawal syndrome Alcohol withdrawal seizure Alcoholic intoxication PTSD (post-traumatic stress disorder) Generalized anxiety disorder Seizures ADHD Broken jaw Panic disorder Major depressive disorder No pertinent family history Surgical History No pertinent past surgical history Family History Mother Anxiety Grandfather Heart disease Stroke Anxiety Dementia Social History Smoking and tobacco/nicotine status: current some day tobacco/nicotine user cigarettes [ Other cigarette details: go through a pack of cigarettes every 1.5 weeks] Alcohol intake: current Alcohol intake frequency: 3 or more drinks per day Alcohol type: hard liquor Substance/Drug Use: current Marital status: Single service: No Current occupational status: unemployed and disabled Current gender identity: Male Special annika needs: No Course Vital Signs: Vital signs: Vital Signs Temperature 97.9 F 10/05/23 22:12 Pulse Rate 81 10/05/23 23:49 Respiratory Rate 16 10/05/23 22:12 Blood Pressure 155/90 10/05/23 23:49 Pulse Oximetry 100 10/05/23 23:49 MDM - Recheck/Abnormal Lab/Rx Medical Decision Making Patient brought in by ambulance from care home after panic attack, was noted to have high blood pressure at that time which he reports was 180 systolic. He reports history of high blood pressure and states he takes Klonopin as well as uses alcohol to control this, states his blood pressure has been running high anyway since he has stopped drinking alcohol while in care home. He did not tell me what could have caused his panic attack, however does note he is asymptomatic now and does not know why he is here. 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 The rest of his vitals have been stable and he thinks labs or workup is unnecessary at this time. Physical examination overall was completely normal, and we will discharge back to care home with return precautions given. He is set to be released from care home in a week and will follow-up with primary care. Chart reviewed Discharge Plan Discharge Patient Disposition: Home Clinical Impression: Panic attack Condition: Stable Prescriptions: No Action amoxicillin-pot clavulanate 875-125 mg tablet 1 tab PO BID Qty: 20 0RF clonazepam 1 mg tablet 1 mg PO BID Qty: 60 0RF cefdinir 300 mg capsule 300 mg PO BID 7 Days Qty: 14 0RF ibuprofen 600 mg tablet 600 mg PO Q8H PRN (Reason: fever or pain) Qty: 20 0RF Discharge Orders: Discharge ED (Routine); Ordered 10/05/23 Ordered By: Chase Rosas Referrals: Carola Martel MD [Primary Care Provider] - Discharge Diet: Usual diet Discharge Activity: Increase activity as tolerated Patient Instructions: Pain Management Activity Restrictions/Additional Instructions: Continue medications. Please follow-up with primary care once released from care home for reevaluation of your meds. Return with any new or concerning symptoms. 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
[2023-10-05 23:49] VITALS: BP 155/90; PULSE 81; O2SAT 100
== END 2023-10-05 23:52 | disposition home or self-care (01) ==
PROVIDERS: Emergency Provider Physician Assistant; PCP Family Medicine
DX: F41.0 Panic disorder [episodic paroxysmal anxiety] (principal); F17.210 Nicotine dependence, cigarettes, uncomplicated
CPT/HCPCS: 99281

== ENCOUNTER 2023-10-10 18:06 | Emergency (ER) | payer MEDICAID, SELFPAY ==
[2023-10-10 18:10] VITALS: BP 146/83; PULSE 77; RESP 16; TEMP 37.1; O2SAT 98; BMI 22.1
--- NOTE | 2023-10-10 18:21 | XRR_ITS ---
PROCEDURE INFORMATION: Exam: XR Abdomen Exam date and time: 10/10/2023 6:34 PM Age: 28 years old Clinical indication: Patient HX: Constipation; Abdominal pain/distention TECHNIQUE: Imaging protocol: Radiologic exam of the abdomen. Views: Frontal supine view of the abdomen. 1 View. COMPARISON: CR XR chest 1V [id number] 06/15/2017 1:08 PM FINDINGS: Gastrointestinal tract: Nonobstructive bowel gas pattern. No evidence of free air or pneumatosis. Moderate-large stool burden. Bones/joints: No evidence of acute osseous abnormality. XR/XR KUB [id number] IMPRESSION: 1. Nonobstructive bowel gas pattern. 2. Moderate-large stool burden.
--- NOTE | 2023-10-10 18:22 | W.ED.GIBLEED ---
HPI - GI Bleed General: Chief complaint: GI Bleed Stated complaint: rectal bleeding Time Seen by Provider: 10/10/23 18:16 History of Present Illness: 28-year-old male who presents with constipation and associated bright red blood per rectum. Patient states 2 days ago he had a very large bowel movement. He has not had a bowel movement since that time and feels constipated with a lot of pressure in his rectum. Today he tried to have a bowel movement and he was unable to pass the stool and when he tried to wipe, he noticed bright red blood on the toilet paper. He did have some mild right upper quadrant abdominal pain. No nausea or vomiting. He states he has been passing flatus, excessively. He states he has been on a high calorie diet and been drinking plenty of fluids. No previous abdominal surgeries Related Data Previous Rx's Medication Instructions Recorded amoxicillin 875 mg-potassium 1 tab PO BID #20 tabs 07/29/23 clavulanate 125 mg tablet clonazepam 1 mg tablet 1 mg PO BID #60 tabs 08/26/23 cefdinir 300 mg capsule 300 mg PO BID 7 days #14 caps 10/04/23 ibuprofen 600 mg tablet 600 mg PO Q8H PRN fever or pain 10/04/23 #20 tabs docusate sodium 100 mg capsule 100 mg PO BID #60 caps 10/10/23 (Colace) polyethylene glycol 3350 17 4 g PO DAILY #510 grams 10/10/23 gram/dose oral powder (Miralax) Allergies Allergy/AdvReac Type Severity Reaction Status Date / Time cephalexin Allergy ADR-Nausea Verified 08/30/23 04:48 cyclobenzaprine Allergy ALGY-Hives Verified 08/30/23 04:48 [From Flexeril] hydroxyzine Allergy ADR-Halluci Verified 08/30/23 04:48 nating tramadol Allergy Unknown Verified 08/30/23 04:48 Review of Systems General: Reports: 10 or more systems reviewed and unremarkable except in HPI and below PFSH ED PFSH: Medical History Alcohol use disorder Alcohol withdrawal syndrome Alcohol withdrawal seizure Alcoholic intoxication PTSD (post-traumatic stress disorder) Generalized anxiety disorder Seizures ADHD Broken jaw Panic disorder Major depressive disorder No pertinent family history Surgical History No pertinent past surgical history Family History Mother Anxiety Grandfather Heart disease Stroke Anxiety Dementia Social History Smoking and tobacco/nicotine status: current some day tobacco/nicotine user cigarettes [ Other cigarette details: go through a pack of cigarettes every 1.5 weeks] Alcohol intake: current Alcohol intake frequency: 3 or more drinks per day Alcohol type: hard liquor Substance/Drug Use: current Marital status: Single service: No Current occupational status: unemployed and disabled Current gender identity: Male Special annika needs: No Physical Exam Const: COMMON NORMALS: no acute distress and healthy appearing HENMT: COMMON NORMALS: normocephalic HEAD & SCALP: normocephalic Resp: COMMON NORMALS: normal respiratory effort and clear to auscultation bilaterally EFFORT & INSPECTION: No respiratory distress AUSCULTATION: clear to auscultation bilaterally Cardio: COMMON NORMALS: regular rate and regular rhythm RATE: regular rate RHYTHM: regular rhythm GI: COMMON NORMALS: Normal to inspection, nondistended, normoactive bowel sounds present; negative for non-tender OTHER: Mild tenderness in the right upper quadrant. No rebound or guarding. Abdomen is tympanitic to percussion Course Vital Signs: Vital signs: Vital Signs Temperature 98.7 F 10/10/23 18:10 Pulse Rate 77 10/10/23 18:10 Respiratory Rate 16 10/10/23 18:10 Blood Pressure 146/83 10/10/23 18:10 Pulse Oximetry 98 10/10/23 18:10 Oxygen Delivery Me thod Room Air 10/10/23 18:10 MDM - GI Bleed Medical Decision Making 28-year-old male who presents with constipation. He did have bright red blood on the toilet paper consistent most likely with fissure versus hemorrhoidal bleeding. Will obtain a KUB. Do not feel that further workup is indicated. If he does not appear obstructed on his KUB, we will plan to give him lactulose and magnesium citrate and discharged him with orders for Colace twice daily. KUB the abdomen shows large stool burden, no obstructive pattern. Patient's been given lactulose 30 g and milk of magnesia 30 mL p.o. in the emergency department. I have prescribed him Colace 100 mg to take twice daily as well as MiraLAX 1 capful daily. He has been instructed to try to eat a high-fiber diet and drink plenty fluids. Return precautions have been discussed including increased pain, fever or vomiting or increased bloody stools. Lab Data Radiology Impressions KUB X-Ray 10/10/23 18:21 IMPRESSION: 1. Nonobstructive bowel gas pattern. 2. Moderate-large stool burden. All radiology interpretation(s) finalized by discharge Discharge Plan Discharge Patient Disposition: Home Clinical Impression: Constipation, Hematochezia Condition: Stable Prescriptions: New Colace 100 mg capsule 100 mg PO BID Qty: 60 0RF Miralax 17 gram/dose powder 4 g PO DAILY Qty: 510 0RF No Action amoxicillin-pot clavulanate 875-125 mg tablet 1 tab PO BID Qty: 20 0RF clonazepam 1 mg tablet 1 mg PO BID Qty: 60 0RF cefdinir 300 mg capsule 300 mg PO BID 7 Days Qty: 14 0RF ibuprofen 600 mg tablet 600 mg PO Q8H PRN (Reason: fever or pain) Qty: 20 0RF Discharge Orders: Discharge ED (Routine); Ordered 10/10/23 Ordered By: Shelley Freed Referrals: Carola Martel MD [Primary Care Provider] - Discharge Diet: Advance as tolerated Discharge Activity: Increase activity as tolerated Patient Instructions: Anal Fissures, Hemorrhoids, Constipation (DC), Opioid Safety, Pain Management Activity Restrictions/Additional Instructions: Try to eat a high-fiber diet. Make sure you are drinking plenty of fluids. Colace twice daily. MiraLAX 1 capful daily. Return if you have increased pain, start passing large amounts of bright red blood per rectum or develop persistent vomiting Coding Level of Care Code ED Rn Post Partum for Audelia Tubbs
[2023-10-10] MEDS: magnesium hydroxide 30 mL UDC PO (19:34)
[2023-10-10] MEDS: lactulose oral liq 20 gm/30 mL UDC 30 GM PO (19:35)
[2023-10-10 19:46] VITALS: BP 149/86; PULSE 69; RESP 15; O2SAT 98
== END 2023-10-10 19:44 | disposition home or self-care (01) ==
PROVIDERS: Emergency Provider Emergency Medicine; PCP Family Medicine
DX: K59.00 Constipation, unspecified (principal); K92.1 Melena; F17.210 Nicotine dependence, cigarettes, uncomplicated
CPT/HCPCS: 74018; 99283

== ENCOUNTER 2023-10-12 18:14 | Emergency (ER) | payer MEDICAID, SELFPAY ==
[2023-10-12] VITALS (7 sets, daily range): BP systolic 129–145; BP diastolic 71–88; PULSE 70–90; RESP 13–17; TEMP 36.6; O2SAT 96–100; BMI 22.1
--- NOTE | 2023-10-12 18:27 | W.ED.ABDPA2 ---
HPI - Abdominal Pain General: Chief Complaint: Abdominal Pain Stated Complaint: abd pain Time Seen by Provider: 10/12/23 18:16 History of Present Illness: Patient presents to the ER from the assisted with right lower quadrant abdominal pain. Patient says she has had this for about the last week. He was seen here 2 to 3 days ago for similar problem they diagnosed him with constipation and gave him MiraLAX and stool softeners. Patient has been taking them. He has not had good results other than passing a small bowel movement, a lot of liquid, and a lot of gas. Patient is still eating and drinking good. Patient denies any nausea vomiting fever chills. Patient said prior to this episode of abdominal pain he did not have any abdominal problems. Related Data Previous Rx's Medication Instructions Recorded clonazepam 1 mg tablet 1 mg PO BID #60 tabs 08/26/23 ibuprofen 600 mg tablet 600 mg PO Q8H PRN fever or pain 10/04/23 #20 tabs docusate sodium 100 mg capsule 200 mg (2 x 100 mg) PO BID PRN 10/12/23 (Colace) constipation #30 caps levofloxacin 500 mg tablet 500 mg PO DAILY 7 days #7 tabs 10/12/23 polyethylene glycol 3350 17 8 g PO QID PRN constipation #510 10/12/23 gram/dose oral powder (Miralax) grams Allergies Allergy/AdvReac Type Severity Reaction Status Date / Time cephalexin Allergy ADR-Nausea Verified 08/30/23 04:48 cyclobenzaprine Allergy ALGY-Hives Verified 08/30/23 04:48 [From Flexeril] hydroxyzine Allergy ADR-Halluci Verified 08/30/23 04:48 nating tramadol Allergy Unknown Verified 08/30/23 04:48 Review of Systems General: Reports: 10 or more systems reviewed and unremarkable except in HPI and below PFSH ED PFSH: Medical History Alcohol use disorder Alcohol withdrawal syndrome Alcohol withdrawal seizure Alcoholic intoxication PTSD (post-traumatic stress disorder) Generalized anxiety disorder Seizures ADHD Broken jaw Panic disorder Major depressive disorder No pertinent family history Surgical History No pertinent past surgical history Family History Mother Anxiety Grandfather Heart disease Stroke Anxiety Dementia Social History Smoking and tobacco/nicotine status: current some day tobacco/nicotine user cigarettes [ Other cigarette details: go through a pack of cigarettes every 1.5 weeks] Alcohol intake: current Alcohol intake frequency: 3 or more drinks per day Alcohol type: hard liquor Substance/Drug Use: current Marital status: Single service: No Current occupational status: unemployed and disabled Current gender identity: Male Special annika needs: No Physical Exam Const: COMMON NORMALS: no acute distress, average body habitus, patient oriented x3, no limitations, healthy appearing, alert and well nourished HENMT: COMMON NORMALS: normocephalic, hearing grossly normal bilaterally, external ears normal, Normal external nose present and moist oral mucous membranes HEAD & SCALP: normocephalic NOSE: Normal external nose present EXTERNAL EAR: Yes external ears normal Neck/C-Spine: COMMON NORMALS: no JVD Chest: COMMONS NORMALS: normal inspection of the chest and normal palpation of entire chest wall Resp: COMMON NORMALS: normal respiratory effort, No retractions, No use of accessory muscles and clear to auscultation bilaterally AUSCULTATION: clear to auscultation bilaterally Cardio: COMMON NORMALS: no JVD, regular rate, regular rhythm, S1 normal heart sound present, S2 normal heart sound present, No gallops present (Cardio), No clicks present (Cardio), No murmurs present (Cardio) and No rub (Cardio) RATE: regular rate RHYTHM: regular rhythm HEART SOUNDS: S1 normal heart sound present and S2 normal heart sound present GI: COMMON NORMALS: Normal to inspection, nondistended, normoactive bowel sounds present, Soft to palpation, No hepatosplenomegaly present and no masses; negative for non-tender (Mildly tender right lower quadrant no rebound guarding rigidity) PALPATION: Yes Soft to palpation and Yes No hepatosplenomegaly present Neuro: COMMON NORMALS: patient oriented x3 SENSORIUM/ORIENTATION: Yes alert Course Vital Signs: Vital signs: Vital Signs Temperature 97.9 F 10/12/23 18:20 Pulse Rate 87 10/12/23 19:30 Respiratory Rate 13 10/12/23 19:30 Blood Pressure 129/81 10/12/23 19:30 Pulse Oximetry 99 10/12/23 19:30 Oxygen Delivery Me thod Room Air 10/12/23 19:00 MDM - Abdominal Pain Medical Decision Making Lab work was obtained which were essentially unremarkable. Abdominal pelvic CT scan showed segmental wall thickening of the distal sigmoid colon of uncertain etiology possible segmental colitis or infiltrative neoplasm. The results with discussed with the patient. Will place patient on antibiotics and change his bowel prep regimen and discharge him back to the assisted. Differential Diagnosis Likely abdominal pain and constipation Medical Records I reviewed the patient's medical records. Lab Data I reviewed the patient's lab results. 10/12/23 18:39 10/12/23 18:39 Labs/Radiology: Radiology Impressions Abdomen/Pelvis CT 10/12/23 19:11 IMPRESSION: Segmental wall thickening involving the distal sigmoid colon of uncertain etiology. Diagnostic consideration would include segmental colitis or even infiltrating neoplasm. Laboratory Results WBC 6.75 10^3/uL (3.29-11.43) 10/12/23 18:39 RBC 4.59 10^6/uL (3.85-5.65) 10/12/23 18:39 Hgb 14.80 g/dL (11.27-16.99) 10/12/23 18:39 Hct 44.2 % (37-53) 10/12/23 18:39 MCV 96.3 fl (82-101) 10/12/23 18:39 MCH 32.2 pg (27-33) 10/12/23 18:39 MCHC 33.5 g/dL (30-55) 10/12/23 18:39 RDW 13.1 % (12.1-15.1) 10/12/23 18:39 Plt Count 288 10^3/cmm (157-399) 10/12/23 18:39 MPV 10.8 fL (7.4-10.4) H 10/12/23 18:39 Neut % (Auto) 62.6 % 10/12/23 18:39 Lymph % (Auto) 24.1 % 10/12/23 18:39 Webb % (Auto) 10.8 % 10/12/23 18:39 Eos % (Auto) 1.5 % 10/12/23 18:39 Baso % (Auto) 0.7 % 10/12/23 18:39 Neut # (Auto) 4.22 10^3/uL (1.8-7.7) 10/12/23 18:39 Lymph # (Auto) 1.6 10^3/uL (0.8-4.8) 10/12/23 18:39 Webb # (Auto) 0.7 10^3/uL (0.2-0.9) 10/12/23 18:39 Eos # (Auto) 0.1 10^3/uL (0.0-0.8) 10/12/23 18:39 Baso # (Auto) 0.1 10^3/uL (0.0-0.1) 10/12/23 18:39 Nucleated RBC % (auto) 0 % 10/12/23 18:39 Nucleated RBCs # 0.0 /100WBC 10/12/23 18:39 Sodium 138 mmol/L (136-145) 10/12/23 18:39 Potassium 4.5 mmol/L (3.5-5.1) 10/12/23 18:39 Chloride 101 mmol/L (98-107) 10/12/23 18:39 Carbon Dioxide 25 mmol/L (22-29) 10/12/23 18:39 Anion Gap 16.5 (5-19) 10/12/23 18:39 BUN 14 mg/dL (6-20) 10/12/23 18:39 Creatinine 1.0 mg/dL (0.7-1.2) 10/12/23 18:39 GFR Calculation 89.6 mL/min (90-130) L 10/12/23 18:39 Glucose 99 mg/dL (65-115) 10/12/23 18:39 Calculated Osmolality 287 mOsm/kg (285-295) 10/12/23 18:39 Calcium 9.9 mg/dL (8.5-10.5) 10/12/23 18:39 Total Bilirubin 0.4 mg/dL (0.15-1.2) 10/12/23 18:39 AST 15 U/L (0-40) 10/12/23 18:39 ALT 15 U/L (0-41) 10/12/23 18:39 Alkaline Phosphatase 58 U/L (40-130) 10/12/23 18:39 Total Protein 7.5 g/dL (6.6-8.7) 10/12/23 18:39 Albumin 4.6 g/dL (3.5-5.2) 10/12/23 18:39 Globulin 2.9 g/dL (1.3-4.6) 10/12/23 18:39 Lipase 26 U/L (13-60) 10/12/23 18:39 Urine Color Yellow (Yellow) 10/12/23 19:00 Urine Appearance Clear (CLEAR) 10/12/23 19:00 Urine pH 6.0 (5-7) 10/12/23 19:00 Ur Specific [place] 1.022 (1.005-1.030) 10/12/23 19:00 Urine Protein Negative (Negative) 10/12/23 19:00 Urine Glucose (UA) Negative (Normal) 10/12/23 19:00 Urine Ketones Trace (Negative) 10/12/23 19:00 Urine Blood Negative (Negative) 10/12/23 19:00 Urine Nitrate Negative (Negative) 10/12/23 19:00 Urine Bilirubin Negative (Negative) 10/12/23 19:00 Urine Urobilinogen 1.0 mg/dL (Negative) 10/12/23 19:00 Ur Leukocyte Esterase Negative (Negative) 10/12/23 19:00 Amorphous Sediment Not Reportable 10/12/23 19:00 All radiology interpretation(s) finalized by discharge Discharge Plan Discharge Patient Disposition: Home Clinical Impression: Colitis Abdominal pain Qualifiers: Abdominal location: right lower quadrant Qualified Code(s): R10.31 - Right lower quadrant pain Constipation Qualifiers: Constipation type: unspecified constipation type Qualified Code(s): K59.00 - Constipation, unspecified Condition: Stable Prescriptions: New levofloxacin 500 mg tablet 500 mg PO DAILY 7 Days Qty: 7 0RF Miralax 17 gram/dose powder 8 g PO QID PRN (Reason: constipation) Qty: 510 0RF Colace 100 mg capsule 200 mg PO BID PRN (Reason: constipation) Qty: 30 0RF Discontinued amoxicillin-pot clavulanate 875-125 mg tablet 1 tab PO BID Qty: 20 0RF docusate sodium [Colace] 100 mg capsule 100 mg PO BID Qty: 60 0RF polyethylene glycol 3350 [Miralax] 17 gram/dose powder 4 g PO DAILY Qty: 510 0RF No Action clonazepam 1 mg tablet 1 mg PO BID Qty: 60 0RF ibuprofen 600 mg tablet 600 mg PO Q8H PRN (Reason: fever or pain) Qty: 20 0RF Discharge Orders: Discharge ED (Routine); Ordered 10/12/23 Ordered By: Robert Rogers Referrals: Carola Martel MD [Primary Care Provider] - 1 week Patient Instructions: Abdominal Pain (ED), Colitis (ED), Constipation - Adult Activity Restrictions/Additional Instructions: Your evaluation ER showed you may have colitis, this may be irritation of your colon or an infection. Your antibiotics have been changed as well as your stool softeners and laxatives. Please take them as directed. Please follow-up with your family practice physician or the physician in the assisted within the next 7 days for further evaluation and treatment. Coding Level of Care Code ED Academic Advising Director for Audelia Tubbs
[2023-10-12 18:46] LABS: Basophils # 0.1 10^3/uL (0.0-0.1); Basophils % 0.7 %; Eosinophils # 0.1 10^3/uL (0.0-0.8); Eosinophils % 1.5 %; Hematocrit 44.2 % (37-53); Lymphocytes # 1.6 10^3/uL (0.8-4.8); Lymphocytes % 24.1 %; Mean Corpuscular HGB Conc 33.5 g/dL (30-55); Mean Corpuscular Hemoglobin 32.2 pg (27-33); Mean Corpuscular Volume 96.3 fl (82-101); Mean Platelet Volume 10.8 fL (7.4-10.4); Monocytes # 0.7 10^3/uL (0.2-0.9); Monocytes % 10.8 %; Neutrophils # 4.22 10^3/uL (1.8-7.7); Neutrophils % 62.6 %; Nucleated Red Blood Cells % 0 %; Platelet Count 288 10^3/cmm (157-399); Red Blood Count 4.59 10^6/uL (3.85-5.65); Red Cell Distribution Width 13.1 % (12.1-15.1); White Blood Count 6.75 10^3/uL (3.29-11.43)
[2023-10-12 19:04] LABS: Charge for UA Resulting for Rev
[2023-10-12 19:06] LABS: Bilirubin Urine Negative (Negative); Blood Urine Negative (Negative); Glucose Urine UA Negative (Normal); Ketones Urine Trace (Negative); Leukocyte Esterase Urine Negative (Negative); Nitrate Urine Negative (Negative); Protein Urine Negative (Negative); Specific Gravity, Urine 1.022 (1.005-1.030); Urine Appearance Clear (CLEAR); Urine Color Yellow (Yellow)
[2023-10-12 19:08] LABS: Alanine Aminotransferase 15 U/L (0-41); Albumin Level 4.6 g/dL (3.5-5.2); Alkaline Phosphatase 58 U/L (40-130); Anion Gap 16.5 (5-19); Aspartate Amino Transferase 15 U/L (0-40); Blood Urea Nitrogen 14 mg/dL (6-20); Calcium 9.9 mg/dL (8.5-10.5); Carbon Dioxide 25 mmol/L (22-29); Chloride 101 mmol/L (98-107); Creatinine Clr Calc Pharmacy 109.2892; Globulin 2.9 g/dL (1.3-4.6); Glomerular Filtration Rate 89.6 mL/min (90-130); Glucose 99 mg/dL (65-115); Lipase 26 U/L (13-60); Osmolality Calculated 287 mOsm/kg (285-295); Potassium 4.5 mmol/L (3.5-5.1); Sodium 138 mmol/L (136-145); Total Bilirubin 0.4 mg/dL (0.15-1.2); Total Protein 7.5 g/dL (6.6-8.7)
--- NOTE | 2023-10-12 19:11 | CTR_ITS ---
PROCEDURE INFORMATION: Exam: CT Abdomen And Pelvis With Contrast Exam date and time: 10/12/2023 7:33 PM Age: 28 years old Clinical indication: Constipation; Abdominal pain; Localized; Right lower quadrant (rlq); Additional info: Rlq abd pain TECHNIQUE: Imaging protocol: Computed tomography of the abdomen and pelvis with contrast. Radiation optimization: All CT scans at this facility use at least one of these dose optimization techniques: automated exposure control; mA and/or kV adjustment per patient size (includes targeted exams where dose is matched to clinical indication); or iterative reconstruction. Contrast material: OMNI 350; Contrast volume: 100 ml; Contrast route: INTRAVENOUS (IV); COMPARISON: CR XR KUB [id number] 10/10/2023 6:34 PM RADIATION DOSE METRICS: Total DLP (mGy-cm): 347.35 FINDINGS: Lungs: Lung bases are clear. No pleural effusion. Liver: Normal. No mass. Gallbladder and biliary ducts: Normal. No calcified stones. No ductal dilation. Pancreas: Normal. No ductal dilation. Spleen: Normal. No splenomegaly. Adrenal glands: Normal. No mass. Kidneys and ureters: Normal. No hydronephrosis. Stomach and bowel: There is segmental wall thickening involving the distal sigmoid colon extending to the rectosigmoid junction. See no surrounding mesenteric inflammation. No abscess. Appendix: The appendix is clearly identified and is unremarkable. Intraperitoneal space: See Stomach and bowel finding. Vasculature: Unremarkable. No abdominal aortic aneurysm. Lymph nodes: Unremarkable. No enlarged lymph nodes. Urinary bladder: Unremarkable as visualized. Reproductive: Unremarkable as visualized. Bones/joints: Unremarkable. No acute fracture. Soft tissues: Unremarkable. CT/CT abdomen pelvis w con* [id number] IMPRESSION: Segmental wall thickening involving the distal sigmoid colon of uncertain etiology. Diagnostic consideration would include segmental colitis or even infiltrating neoplasm.
[2023-10-12] MEDS: iohexol 350 mg/mL 500 mL Btl (per mL) IV (19:35)
[2023-10-12] MEDS: bisacodyl 5 mg Tablet 10 MG PO (21:28)
[2023-10-12] MEDS: peg /e-lyte soln 4,000 mL Btl 4000 ML PO (21:38)
== END 2023-10-12 21:52 | disposition home or self-care (01) ==
PROVIDERS: Emergency Provider Emergency Medicine; PCP Family Medicine
DX: R10.31 Right lower quadrant pain (principal); K52.9 Noninfective gastroenteritis and colitis, unspecified; K59.00 Constipation, unspecified; F17.210 Nicotine dependence, cigarettes, uncomplicated
CPT/HCPCS: 36415; 74177; 80053; 81003; 81015; 83690; 85025; 99284

== ENCOUNTER 2023-10-18 19:11 | Emergency (ER) | payer MEDICAID, SELFPAY ==
[2023-10-18 19:13] VITALS: BP 139/95; PULSE 75; RESP 16; TEMP 36.8; O2SAT 100; BMI 22.1
--- NOTE | 2023-10-18 19:31 | XRR_ITS ---
PROCEDURE INFORMATION: Exam: XR Abdomen Exam date and time: 10/18/2023 7:41 PM Age: 28 years old Clinical indication: Patient HX: Abdominal pain; Constipation TECHNIQUE: Imaging protocol: Radiologic exam of the abdomen. Views: Frontal supine view of the abdomen. 1 View. COMPARISON: CT abdomen pelvis w con* [id number] 10/12/2023 7:33 PM FINDINGS: Gastrointestinal tract: Normal bowel gas pattern. Moderate stool scattered throughout the colon. Bones/joints: Unremarkable. XR/XR KUB portable [id number] IMPRESSION: Moderate colonic stool can be seen with constipation.
[2023-10-18 19:48] VITALS: BP 115/79; PULSE 108; RESP 22; O2SAT 99
--- NOTE | 2023-10-18 19:54 | W.ED.ABDPA2 ---
HPI - Abdominal Pain General: Chief Complaint: Abdominal Pain Stated Complaint: ABD PAIN Time Seen by Provider: 10/18/23 19:14 History of Present Illness: 28-year-old male. This will be his third visit from the [facility] for abdominal pain in the last week or so. He presents again with abdominal discomfort, constipation. No vomiting. He states that he is only had 1 stool since he was given a bowel prep last week. He has eaten like a horse all week. He has only had 1 bowel movement. No fever. No history of abdominal surgery. No leonardo blood in the stool. Related Data Previous Rx's Medication Instructions Recorded clonazepam 1 mg tablet 1 mg PO BID #60 tabs 08/26/23 levofloxacin 500 mg tablet 500 mg PO DAILY 7 days #7 tabs 10/12/23 ibuprofen 600 mg tablet 600 mg PO Q8H PRN fever or pain 10/18/23 #45 tabs lactulose 20 gram/30 mL oral 20 g (30 mL) PO BID #2,880 mL 10/18/23 solution polyethylene glycol 3350 17 17 g PO DAILY #850 grams 10/18/23 gram/dose oral powder (Miralax) Allergies Allergy/AdvReac Type Severity Reaction Status Date / Time cephalexin Allergy ADR-Nausea Verified 08/30/23 04:48 cyclobenzaprine Allergy ALGY-Hives Verified 08/30/23 04:48 [From Flexeril] hydroxyzine Allergy ADR-Halluci Verified 08/30/23 04:48 nating tramadol Allergy Unknown Verified 08/30/23 04:48 [facility] ED PFSH: Medical History Alcohol use disorder Alcohol withdrawal syndrome Alcohol withdrawal seizure Alcoholic intoxication PTSD (post-traumatic stress disorder) Generalized anxiety disorder Seizures ADHD Broken jaw Panic disorder Major depressive disorder No pertinent family history Surgical History No pertinent past surgical history Family History Mother Anxiety Grandfather Heart disease Stroke Anxiety Dementia Social History Smoking and tobacco/nicotine status: current some day tobacco/nicotine user cigarettes [ Other cigarette details: go through a pack of cigarettes every 1.5 weeks] Alcohol intake: current Alcohol intake frequency: 3 or more drinks per day Alcohol type: hard liquor Substance/Drug Use: current Marital status: Single service: No Current occupational status: unemployed and disabled Current gender identity: Male Special annika needs: No Physical Exam Const: COMMON NORMALS: no acute distress GENERAL APPEARANCE: cooperative; not ill appearing and not frail appearing HENMT: COMMON NORMALS: normocephalic, atraumatic and Normal external nose present HEAD & SCALP: normocephalic and atraumatic FACE & SINUS: normal facial exam and face symmetric NOSE: Normal external nose present Eye: COMMON NORMALS: Equal, round and reactive pupils present and EOMs intact bilaterally PUPIL: Yes Equal, round and reactive pupils present Neck/C-Spine: GENERAL: Yes trachea midline Chest: CHEST: Yes Symmetrical chest wall rise Resp: COMMON NORMALS: normal respiratory effort, No retractions, No use of accessory muscles and clear to auscultation bilaterally AUSCULTATION: clear to auscultation bilaterally Cardio: COMMON NORMALS: regular rate and regular rhythm RATE: regular rate RHYTHM: regular rhythm GI: COMMON NORMALS: Normal to inspection, nondistended, normoactive bowel sounds present PALPATION: Yes Tenderness to palpation present (GI) (Mild) Details: LUQ Extremity: COMMON NORMALS: no pedal edema Neuro: CRISTAL COMA SCALE: document GCS findings Friend coma scale eye opening: Spontaneous Cristal coma scale verbal response: Orientated Cristal coma scale motor response: Obey commands Cristal coma scale total score: 15 SENSORY EXAM: Yes extremities (intact) Psych: COMMON NORMALS: speech normal SPEECH: Yes normal speech Skin: COMMON NORMALS: no rashes or lesions noted GENERAL SKIN EXAM: no rashes or lesions noted Course Vital Signs: Vital signs: Vital Signs Temperature 98.2 F 10/18/23 19:13 Pulse Rate 80 10/18/23 20:32 Respiratory Rate 14 10/18/23 20:32 Blood Pressure 130/76 10/18/23 20:32 Pulse Oximetry 100 10/18/23 20:32 Oxygen Delivery Me thod Room Air 10/18/23 19:13 MDM - Abdominal Pain Medical Decision Making This gentleman's belly is soft. He has mild tenderness to the left upper quadrant. His vitals are normal. He is afebrile. He has had 2 normal workups essentially, in the last week laboratory and imaging garcia. KUB this evening shows a nonobstructive pattern with significant stool burden again. He has only been getting MiraLAX once a day instead of 4 times a day as prescribed. Will discontinue this, and place him on lactulose twice daily. He is given a bowel prep here, as it seemed to work prior. Lab Data Labs/Radiology: Radiology Impressions KUB X-Ray 10/18/23 19:31 IMPRESSION: Moderate colonic stool can be seen with constipation. All radiology interpretation(s) finalized by discharge Discharge Plan Discharge Patient Disposition: Home Clinical Impression: Constipation Abdominal pain Qualifiers: Abdominal location: right lower quadrant Qualified Code(s): R10.31 - Right lower quadrant pain Condition: Stable Prescriptions: New Miralax 17 gram/dose powder 17 g PO DAILY Qty: 850 0RF lactulose 20 gram/30 mL solution 20 g PO BID Qty: 2880 0RF Continued ibuprofen 600 mg tablet 600 mg PO Q8H PRN (Reason: fever or pain) Qty: 45 0RF Discontinued polyethylene glycol 3350 [Miralax] 17 gram/dose powder 8 g PO QID PRN (Reason: constipation) Qty: 510 0RF docusate sodium [Colace] 100 mg capsule 200 mg PO BID PRN (Reason: constipation) Qty: 30 0RF No Action clonazepam 1 mg tablet 1 mg PO BID Qty: 60 0RF levofloxacin 500 mg tablet 500 mg PO DAILY 7 Days Qty: 7 0RF Discharge Orders: Discharge ED (Routine); Ordered 10/18/23 Ordered By: Eligio Cole Referrals: Carola Martel MD [Primary Care Provider] - 4-7 days Patient Instructions: Constipation (ED), Abdominal Pain (ED), Opioid Safety, Pain Management Activity Restrictions/Additional Instructions: Your x-ray again showed constipation without bowel obstruction. Take the GoLytely as prescribed tonight. Discontinue the Colace. Use MiraLAX, but at an increased dose once daily. Use lactulose twice daily as prescribed. These are not as needed medications but scheduled medications. Lactulose may be discontinued when bowel movements become soft, irregular, twice daily. Continue the MiraLAX. Coding Level of Care Code ED Customer Account Administrator for Audelia Tubbs
[2023-10-18] MEDS: peg /e-lyte soln 4,000 mL Btl 4000 ML PO (20:27)
[2023-10-18 20:32] VITALS: BP 130/76; PULSE 80; RESP 14; O2SAT 100
== END 2023-10-18 20:35 | disposition home or self-care (01) ==
PROVIDERS: Emergency Provider Emergency Medicine; PCP Family Medicine
DX: K59.00 Constipation, unspecified (principal); R10.31 Right lower quadrant pain; F17.210 Nicotine dependence, cigarettes, uncomplicated
CPT/HCPCS: 74018; 99283

== ENCOUNTER 2023-10-20 21:20 | Emergency (ER) | payer MEDICAID, SELFPAY ==
[2023-10-20 21:22] VITALS: BP 135/91; PULSE 86; RESP 16; TEMP 35.9; O2SAT 100; BMI 22.1
[2023-10-20 21:33] VITALS: BP 133/89; PULSE 86; RESP 18; O2SAT 99
--- NOTE | 2023-10-20 21:40 | ED_ITS ---
HPI - Neck Pain/Injury General: Chief Complaint: Neck Pain/Injury Stated Complaint: HEAD AND NECK PAIN Time Seen by Provider: 10/20/23 21:23 History of Present Illness: Patient presents emergency room from halfway. This is his seventh visit in less than a month. He is here on 09/22, 10/03, 10/04, 10/09, 10/11, and 10/17. Today when he says he had a sharp pain in his neck and his jaw that has now improved quite a bit. He did take some ibuprofen in halfway. He does complain of musculoskeletal pain over the Toradol and Norflex shots. He declines those and says he wants Norflex. Nursing says after I walked out of the room he is laughing. And not in any pain anymore immediately after left. Related Data Previous Rx's Medication Instructions Recorded ibuprofen 600 mg tablet 600 mg PO Q8H PRN fever or pain 10/18/23 #45 tabs lactulose 20 gram/30 mL oral 20 g (30 mL) PO BID #2,880 mL 10/18/23 solution polyethylene glycol 3350 17 17 g PO DAILY #850 grams 10/18/23 gram/dose oral powder (Miralax) clonazepam 1 mg tablet 1 mg PO BID #60 tabs 10/20/23 Allergies Allergy/AdvReac Type Severity Reaction Status Date / Time cephalexin Allergy ADR-Nausea Verified 10/20/23 21:26 cyclobenzaprine Allergy ALGY-Hives Verified 10/20/23 21:26 [From Flexeril] hydroxyzine Allergy ADR-Halluci Verified 10/20/23 21:26 nating tramadol Allergy Unknown Verified 10/20/23 21:26 Review of Systems Narrative: Constitutional symptoms: Negative except as documented in HPI. Skin symptoms: Negative except as documented in HPI. Eye symptoms: Negative except as documented in HPI. ENMT symptoms: Negative except as documented in HPI. Respiratory symptoms: Negative except as documented in HPI. Cardiovascular symptoms: Negative except as documented in HPI. Gastrointestinal symptoms: Negative except as documented in HPI. Genitourinary symptoms: Negative except as documented in HPI. Musculoskeletal symptoms: Negative except as documented in HPI. Neurologic symptoms: Negative except as documented in HPI. Psychiatric symptoms: Negative except as documented in HPI. Endocrine symptoms: Negative except as documented in HPI. PFSH ED PFSH: Medical History Alcohol use disorder Alcohol withdrawal syndrome Alcohol withdrawal seizure Alcoholic intoxication PTSD (post-traumatic stress disorder) Generalized anxiety disorder Seizures ADHD Broken jaw Panic disorder Major depressive disorder No pertinent family history Surgical History No pertinent past surgical history Family History Mother Anxiety Grandfather Heart disease Stroke Anxiety Dementia Social History Smoking and tobacco/nicotine status: current some day tobacco/nicotine user cigarettes [ Other cigarette details: go through a pack of cigarettes every 1.5 weeks] Alcohol intake: current Alcohol intake frequency: 3 or more drinks per day Alcohol type: hard liquor Substance/Drug Use: current Marital status: Single service: No Current occupational status: unemployed and disabled Current gender identity: Male Special annika needs: No Physical Exam Narrative: EXAM NARRATIVE: General: Alert, no acute distress. Skin: warm and dry Head: Normocephalic Neck: Trachea midline Eye: Extraocular movements are intact. Ears, nose, mouth and throat: Oral mucosa moist Respiratory: Respirations are non-labored Musculoskeletal: Normal ROM Neurological: Alert and oriented, No focal neurological deficit observed. Psychiatric: Cooperative, appropriate mood & affect. Course Vital Signs: Vital signs: Vital Signs Temperature 96.7 F L 10/20/23 21:22 Pulse Rate 86 10/20/23 21:33 Respiratory Rate 18 10/20/23 21:33 Blood Pressure 133/89 10/20/23 21:33 Pulse Oximetry 99 10/20/23 21:33 Oxygen Delivery Me thod Room Air 10/20/23 21:22 MDM - Neck Pain/Injury Medical Decision Making Patient is displaying behaviors that seem to be more malingering to get up halfway. At this point he declines any treatment because he did not want a shot. Assessment and plan: Malingering Neck pain that has resolved - Discharged back to halfway No radiology studies performed this visit Discharge Plan Discharge Patient Disposition: Home Clinical Impression: Malingering, Neck pain, Pain, dental Condition: Stable Prescriptions: No Action clonazepam 1 mg tablet 1 mg PO BID Qty: 60 2RF Miralax 17 gram/dose powder 17 g PO DAILY Qty: 850 0RF lactulose 20 gram/30 mL solution 20 g PO BID Qty: 2880 0RF ibuprofen 600 mg tablet 600 mg PO Q8H PRN (Reason: fever or pain) Qty: 45 0RF Discharge Orders: Discharge ED (Routine); Ordered 10/20/23 Ordered By: Lynette Arevalo Referrals: Carola Martel MD [Primary Care Provider] - Discharge Diet: Usual diet Discharge Activity: Increase activity as tolerated Patient Instructions: Opioid Safety, Pain Management Activity Restrictions/Additional Instructions: Thank you for choosing [facility] for your healthcare needs today. Please realize this is an emergency room and that we are providing you with a medical screening exam and this may not be complete and all inclusive of all the testing and or work up that you may need to determine your ailment or severity of your illness. You have been screened and evaluated and felt safe for discharge. Health conditions do change or evolve sometimes and as such it is important that you follow up with your Primary Doctor to be re checked, 3-5 days is a general good time frame for follow up. 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
--- NOTE | 2023-10-20 21:40 | PC.NURSE ---
Nurse entered pt room and pt is no longer grimacing, pt is laughing with shanon. Nurse advised pt that she had ordered medication from provider for pain as well as an abx, pt refused all medication and stated he didn't need shots and he also didn't need an abx because he is already on abx, provider ntbreanna
[2023-10-20 21:42] VITALS: BP 133/89; PULSE 77; RESP 16; O2SAT 100
== END 2023-10-20 21:45 | disposition home or self-care (01) ==
PROVIDERS: Emergency Provider Emergency Medicine; PCP Family Medicine
DX: M54.2 Cervicalgia (principal); K08.89 Other specified disorders of teeth and supporting structures; Z76.5 Malingerer [conscious simulation]; F17.210 Nicotine dependence, cigarettes, uncomplicated
CPT/HCPCS: 99281

== ENCOUNTER 2023-11-02 04:08 | Emergency (ER) | payer MEDICAID, SELFPAY ==
[2023-11-02 04:18] VITALS: BP 166/109; PULSE 96; RESP 18; TEMP 37.1; O2SAT 95; BMI 22.8
--- NOTE | 2023-11-02 04:22 | ED_ITS ---
HPI - Abdominal Pain General: Chief Complaint: Abdominal Pain Stated Complaint: pain in left flank /back Time Seen by Provider: 11/02/23 04:11 Source: patient Mode of arrival: ambulatory Limitations: no limitations History of Present Illness: 28-year-old male with a history of alcoh olism he states he been having some back pain for the last 2 days states for the aching type pain he is in no distress. Denies any vomiting denies any diarrhea he denies any fever or dysuria Associated Symptoms: Denies chills, diarrhea, dysuria, fever(s), nausea and vomiting Related Data Previous Rx's Medication Instructions Recorded ibuprofen 600 mg tablet 600 mg PO Q8H PRN fever or pain 10/18/23 #45 tabs amoxicillin 875 mg-potassium 1 tab PO Q12H #14 tabs 10/28/23 clavulanate 125 mg tablet Allergies Allergy/AdvReac Type Severity Reaction Status Date / Time cephalexin Allergy ADR-Nausea Verified 10/28/23 12:53 cyclobenzaprine Allergy ALGY-Hives Verified 10/28/23 12:53 [From Flexeril] hydroxyzine Allergy ADR-Halluci Verified 10/28/23 12:53 nating tramadol Allergy Unknown Verified 10/28/23 12:53 Review of Systems Const: Denies: fever(s), chills, body aches or change in appetite ENMT: Denies: throat pain or dental pain Card: Denies: chest pain Resp: Denies: dyspnea GI: Reports: abdominal pain; Denies: nausea, vomiting or diarrhea : Denies: dysuria Musc: Denies: neck pain or back pain Skin/Breast: Denies: rash Neuro: Denies: headache(s) PFSH ED PFSH: Medical History Alcohol use disorder Alcohol withdrawal syndrome Alcohol withdrawal seizure Alcoholic intoxication PTSD (post-traumatic stress disorder) Generalized anxiety disorder Seizures ADHD Broken jaw Panic disorder Major depressive disorder No pertinent family history Surgical History No pertinent past surgical history Family History Mother Anxiety Grandfather Heart disease Stroke Anxiety Dementia Social History Smoking and tobacco/nicotine status: former use of tobacco/nicotine Alcohol intake: current Alcohol intake frequency: 3 or more drinks per day Alcohol type: hard liquor Substance/Drug Use: current Marital status: Single service: No Current occupational status: unemployed and disabled Current gender identity: Male Special annika needs: No Physical Exam Const: COMMON NORMALS: no acute distress, patient oriented x3 and healthy appearing HENMT: COMMON NORMALS: normocephalic and atraumatic HEAD & SCALP: normocephalic and atraumatic Neck/C-Spine: COMMON NORMALS: full ROM and supple Chest: COMMONS NORMALS: normal inspection of the chest Resp: COMMON NORMALS: normal respiratory effort, No retractions, No use of accessory muscles and clear to auscultation bilaterally AUSCULTATION: clear to auscultation bilaterally Cardio: COMMON NORMALS: regular rate, regular rhythm and No murmurs present (Cardio) RATE: regular rate RHYTHM: regular rhythm GI: COMMON NORMALS: Normal to inspection, nondistended, normoactive bowel sounds present, Soft to palpation, non-tender and no masses PALPATION: Yes Soft to palpation Extremity: COMMON NORMALS: normal to inspection and full ROM Neuro: COMMON NORMALS: patient oriented x3, moves all extremities and no focal motor deficits Psych: COMMON NORMALS: mental status grossly normal, Normal thought process present and cooperative THOUGHT PROCESS: Normal thought process present Skin: COMMON NORMALS: no rashes or lesions noted and no wounds GENERAL SKIN EXAM: no rashes or lesions noted Course Vital Signs: Vital signs: Vital Signs Temperature 98.7 F 11/02/23 04:18 Pulse Rate 96 11/02/23 04:18 Respiratory Rate 18 11/02/23 04:18 Blood Pressure 166/109 11/02/23 04:18 Pulse Oximetry 95 11/02/23 04:18 Oxygen Delivery Me thod Room Air 11/02/23 04:18 MDM - Abdominal Pain Medical Decision Making Patient presents here with abdominal pain after patient arrived he decided he wanted to leave and signed out AMA he is ambulatory and has medical decision making capacity and signed out AGAINST MEDICAL ADVICE Medical Records I reviewed the patient's medical records. 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
== END 2023-11-02 04:32 | disposition left against medical advice (07) ==
PROVIDERS: Emergency Provider Emergency Medicine
DX: R10.9 Unspecified abdominal pain (principal); Z53.29 Procedure and treatment not carried out because of patient's decision for other reasons; Z87.891 Personal history of nicotine dependence

== ENCOUNTER 2023-11-02 14:35 | Emergency (ER) | payer MEDICAID, SELFPAY ==
[2023-11-02 14:36] VITALS: BP 139/86; PULSE 93; RESP 17; TEMP 36.5; O2SAT 98; BMI 22.1
--- NOTE | 2023-11-02 14:39 | ECG_ITS ---
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 Measurements Intervals [place] Rate: 103 P: 44 WA: 148 QRS: 64 QRSD: 92 T: 48 QT: 347 QTc: 455 Interpretive Statements SINUS TACHYCARDIA ABNORMAL RHYTHM ECG Compared to ECG 08/07/2023 01:56:20 Sinus rhythm no longer present Sinus arrhythmia no longer present Electronically Signed On 11-02-2023 23:25:43 CDT by Terry Restrepo M.D. [email or web address]
--- NOTE | 2023-11-02 14:39 | XRR_ITS ---
PROCEDURE INFORMATION: Exam: XR Chest Exam date and time: 11/02/2023 2:56 PM Age: 28 years old Clinical indication: Other: Weakness TECHNIQUE: Imaging protocol: Radiologic exam of the chest. Views: 1 view. COMPARISON: CR XR chest 1V [id number] 06/15/2017 1:08 PM FINDINGS: Lungs: No focal consolidation. 8 mm nodular opacity in the periphery of the right upper lung zone. Pleural spaces: No sizable pleural effusion. No pneumothorax. Heart/Mediastinum: Unremarkable cardiomediastinal silhouette. Bones/joints: The osseous structures are unremarkable. Soft tissues: Soft tissues are unremarkable as visualized. XR/XR chest 1V portable [id number] IMPRESSION: 1. No focal consolidation or sizable pleural effusion. 2. 8 mm nodular opacity in the periphery of the right upper lung zone. Consider chest CT for further assessment.
[2023-11-02 14:47] VITALS: BP 139/86; PULSE 93; RESP 16; O2SAT 98
--- NOTE | 2023-11-02 14:51 | ED_ITS ---
HPI - Anxiety 2 General: Chief Complaint: Anxiety Stated Complaint: found unresponsive Time Seen by Provider: 11/02/23 14:38 History of Present Illness: 28-year-old man with a history of seizur e disorder and alcohol abuse who presents emergency room after he was difficult to arouse. He says he had 7 shots of alcohol today. He also is feeling shaky. He says this is because he was taken off of his benzodiazepines. Vitals are normal in no distress on presentation. He does appear slightly intoxicated. Related Data Previous Rx's Medication Instructions Recorded ibuprofen 600 mg tablet 600 mg PO Q8H PRN fever or pain 10/18/23 #45 tabs amoxicillin 875 mg-potassium 1 tab PO Q12H #14 tabs 10/28/23 clavulanate 125 mg tablet Allergies Allergy/AdvReac Type Severity Reaction Status Date / Time cephalexin Allergy ADR-Nausea Verified 10/28/23 12:53 cyclobenzaprine Allergy ALGY-Hives Verified 10/28/23 12:53 [From Flexeril] hydroxyzine Allergy ADR-Halluci Verified 10/28/23 12:53 nating tramadol Allergy Unknown Verified 10/28/23 12:53 Review of Systems 2 Narrative: Constitutional symptoms: Negative except as documented in HPI. Skin symptoms: Negative except as documented in HPI. Eye symptoms: Negative except as documented in HPI. ENMT symptoms: Negative except as documented in HPI. Respiratory symptoms: Negative except as documented in HPI. Cardiovascular symptoms: Negative except as documented in HPI. Gastrointestinal symptoms: Negative except as documented in HPI. Genitourinary symptoms: Negative except as documented in HPI. Musculoskeletal symptoms: Negative except as documented in HPI. Neurologic symptoms: Negative except as documented in HPI. Psychiatric symptoms: Negative except as documented in HPI. Endocrine symptoms: Negative except as documented in HPI. PFSH ED 2 PFSH: Medical History Alcohol use disorder Alcohol withdrawal syndrome Alcohol withdrawal seizure Alcoholic intoxication PTSD (post-traumatic stress disorder) Generalized anxiety disorder Seizures ADHD Broken jaw Panic disorder Major depressive disorder No pertinent family history Surgical History No pertinent past surgical history Family History Mother Anxiety Grandfather Heart disease Stroke Anxiety Dementia Social History Smoking and tobacco/nicotine status: former use of tobacco/nicotine Alcohol intake: current Alcohol intake frequency: 3 or more drinks per day Alcohol type: hard liquor Substance/Drug Use: current Marital status: Single service: No Current occupational status: unemployed and disabled Current gender identity: Male Special annika needs: No Physical Exam 2 Narrative: EXAM NARRATIVE: General: Alert, no acute distress. Skin: Warm, dry. Head: Normocephalic, atraumatic. Neck: Supple, trachea midline. Eye: Extraocular movements are intact. Ears, nose, mouth and throat: mucosa moist. Cardiovascular: Regular, Normal peripheral perfusion. Respiratory: Lungs are clear to auscultation, respirations are non-labored, breath sounds are equal, Symmetrical chest wall expansion. Gastrointestinal: Soft, Nontender, Non distended Musculoskeletal: Normal ROM, no deformity. Neurological: Alert and oriented, No focal neurological deficit observed. Psychiatric: Cooperative, appears intoxicated. Course 2 Vital Signs: Vital signs: Vital Signs Temperature 97.7 F 11/02/23 14:36 Pulse Rate 93 11/02/23 14:47 Respiratory Rate 16 11/02/23 14:47 Blood Pressure 139/86 11/02/23 14:47 Pulse Oximetry 98 11/02/23 14:47 Oxygen Delivery Me thod Room Air 11/02/23 14:47 MDM - Anxiety Medical Decision Making Differential diagnosis: Patient with reported alcohol intoxication who is being cleared medically basically.. Chest x-ray: No acute process. No infiltrate. No pneumothorax. This was reviewed and interpreted by myself the ER physician. EKG: Sinus tachycardia, No ST-T changes, no ectopy, normal SC & QRS intervals, This was reviewed and interpreted by myself the ER physician at 1437. Lab work is unremarkable except for he has a blood alcohol level at 245. He is walking and talking. He is frequently here with higher blood alcohol levels than this. Okay with discharge if he is chaperoned. Assessment and plan: Alcohol abuse Alcohol intoxication - Discharged home - Discussed plan with patient. Answered any questions. - Evaluation and treatment of this problem were appropriate in the emergency setting. Lab Data 11/02/23 15:51 11/02/23 15:51 Radiology Impressions Chest X-Ray 11/02/23 14:39 IMPRESSION: 1. No focal consolidation or sizable pleural effusion. 2. 8 mm nodular opacity in the periphery of the right upper lung zone. Consider chest CT for further assessment. Laboratory Results WBC 3.94 10^3/uL (3.29-11.43) 11/02/23 15:51 RBC 4.59 10^6/uL (3.85-5.65) 11/02/23 15:51 Hgb 14.60 g/dL (11.27-16.99) 11/02/23 15:51 Hct 43.3 % (37-53) 11/02/23 15:51 MCV 94.3 fl (82-101) 11/02/23 15:51 MCH 31.8 pg (27-33) 11/02/23 15:51 MCHC 33.7 g/dL (30-55) 11/02/23 15:51 RDW 13.0 % (12.1-15.1) 11/02/23 15:51 Plt Count 226 10^3/cmm (157-399) 11/02/23 15:51 MPV 10.4 fL (7.4-10.4) 11/02/23 15:51 Neut % (Auto) 44.3 % 11/02/23 15:51 Lymph % (Auto) 42.1 % 11/02/23 15:51 [place] % (Auto) 10.7 % 11/02/23 15:51 Eos % (Auto) 1.3 % 11/02/23 15:51 Baso % (Auto) 1.3 % 11/02/23 15:51 Neut # (Auto) 1.75 10^3/uL (1.8-7.7) L 11/02/23 15:51 Lymph # (Auto) 1.7 10^3/uL (0.8-4.8) 11/02/23 15:51 [place] # (Auto) 0.4 10^3/uL (0.2-0.9) 11/02/23 15:51 Eos # (Auto) 0.1 10^3/uL (0.0-0.8) 11/02/23 15:51 Baso # (Auto) 0.1 10^3/uL (0.0-0.1) 11/02/23 15:51 Nucleated RBC % (auto) 0 % 11/02/23 15:51 Nucleated RBCs # 0.0 /100WBC 11/02/23 15:51 Sodium 144 mmol/L (136-145) 11/02/23 15:51 Potassium 3.9 mmol/L (3.5-5.1) 11/02/23 15:51 Chloride 105 mmol/L (98-107) 11/02/23 15:51 Carbon Dioxide 26 mmol/L (22-29) 11/02/23 15:51 Anion Gap 16.9 (5-19) 11/02/23 15:51 BUN 14 mg/dL (6-20) 11/02/23 15:51 Creatinine 0.7 mg/dL (0.7-1.2) 11/02/23 15:51 GFR Calculation 135.3 mL/min (90-130) H 11/02/23 15:51 Glucose 110 mg/dL (65-115) 11/02/23 15:51 Calculated Osmolality 299 mOsm/kg (285-295) H 11/02/23 15:51 Calcium 9.1 mg/dL (8.5-10.5) 11/02/23 15:51 Total Bilirubin 0.4 mg/dL (0.15-1.2) 11/02/23 15:51 AST 19 U/L (0-40) 11/02/23 15:51 ALT 20 U/L (0-41) 11/02/23 15:51 Alkaline Phosphatase 63 U/L (40-130) 11/02/23 15:51 Total Protein 7.3 g/dL (6.6-8.7) 11/02/23 15:51 Albumin 4.3 g/dL (3.5-5.2) 11/02/23 15:51 Globulin 3.0 g/dL (1.3-4.6) 11/02/23 15:51 TSH 1.41 uIU/mL (0.27-4.20) 11/02/23 15:51 Urine Color Yellow (Yellow) 11/02/23 15:30 Urine Appearance Clear (CLEAR) 11/02/23 15:30 Urine pH 6.5 (5-7) 11/02/23 15:30 Ur Specific [place] 1.022 (1.005-1.030) 11/02/23 15:30 Urine Protein Trace (Negative) A 11/02/23 15:30 Urine Glucose (UA) Negative (Normal) 11/02/23 15:30 Urine Ketones Negative (Negative) 11/02/23 15:30 Urine Blood Trace (Negative) A 11/02/23 15:30 Urine Nitrate Negative (Negative) 11/02/23 15:30 Urine Bilirubin Negative (Negative) 11/02/23 15:30 Urine Urobilinogen 1.0 mg/dL (Negative) 11/02/23 15:30 Ur Leukocyte Esterase Negative (Negative) 11/02/23 15:30 Urine RBC 6-10 /hpf (0-2) 11/02/23 15:30 Urine WBC 0-5 /hpf (0-5) 11/02/23 15:30 Ur Squamous Epith Cells 0-5 /hpf (0-5) 11/02/23 15:30 Amorphous Sediment Not Reportable 11/02/23 15:30 Urine Bacteria None seen /hpf (NONE) 11/02/23 15:30 Hyaline Casts 1.21 /lpf 11/02/23 15:30 Salicylates < 0.3 mg/dL (3-10) L 11/02/23 15:51 Urine Opiates Screen Negative ng/mL (Negative) 11/02/23 15:30 Acetaminophen < 5.0 ug/mL (10-30) L 11/02/23 15:51 Ur Barbiturates Screen Negative ng/mL (Negative) 11/02/23 15:30 Ur Phencyclidine Scrn Negative ng/mL (Negative) 11/02/23 15:30 Ur Amphetamines Screen Negative ng/mL (Negative) 11/02/23 15:30 U Benzodiazepines Scrn Negative ng/mL (Negative) 11/02/23 15:30 Urine Cocaine Screen Negative ng/mL (Negative) 11/02/23 15:30 U Marijuana (THC) Screen Negative ng/mL (Negative) 11/02/23 15:30 Ethyl Alcohol 245 mg/dL (0-10) H 11/02/23 15:51 All radiology interpretation(s) finalized by discharge Discharge Plan Discharge Patient Disposition: Home Clinical Impression: Alcoholic intoxication, Alcohol abuse Condition: Stable Prescriptions: No Action amoxicillin-pot clavulanate 875-125 mg tablet 1 tab PO Q12H Qty: 14 0RF ibuprofen 600 mg tablet 600 mg PO Q8H PRN (Reason: fever or pain) Qty: 45 0RF Discharge Orders: Discharge ED (Routine); Ordered 11/02/23 Ordered By: Lynette Arevalo Discharge Diet: Usual diet Discharge Activity: Increase activity as tolerated Patient Instructions: Abuse of Alcohol (ED) Activity Restrictions/Additional Instructions: Thank you for choosing [facility] for your healthcare needs today. Please realize this is an emergency room and that we are providing you with a medical screening exam and this may not be complete and all inclusive of all the testing and or work up that you may need to determine your ailment or severity of your illness. You have been screened and evaluated and felt safe for discharge. Health conditions do change or evolve sometimes and as such it is important that you follow up with your Primary Doctor to be re checked, 3-5 days is a general good time frame for follow up. 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
[2023-11-02 15:38] LABS: Bilirubin Urine Negative (Negative); Blood Urine Trace (Negative); Glucose Urine UA Negative (Normal); Ketones Urine Negative (Negative); Leukocyte Esterase Urine Negative (Negative); Nitrate Urine Negative (Negative); Protein Urine Trace (Negative); Specific Gravity, Urine 1.022 (1.005-1.030); Urine Appearance Clear (CLEAR); Urine Color Yellow (Yellow); pH Urine 6.5 (5-7)
[2023-11-02 15:40] LABS: Bacteria Urine None Seen /hpf; Hyaline Casts Urine 1.21 /lpf; Squamous Epithelial Cell Urine 0-5 /hpf (0-5); WBC Urine 0-5 /hpf (0-5)
[2023-11-02 15:56] LABS: Basophils # 0.1 10^3/uL (0.0-0.1); Basophils % 1.3 %; Eosinophils # 0.1 10^3/uL (0.0-0.8); Eosinophils % 1.3 %; Hematocrit 43.3 % (37-53); Lymphocytes # 1.7 10^3/uL (0.8-4.8); Lymphocytes % 42.1 %; Mean Corpuscular HGB Conc 33.7 g/dL (30-55); Mean Corpuscular Hemoglobin 31.8 pg (27-33); Mean Corpuscular Volume 94.3 fl (82-101); Mean Platelet Volume 10.4 fL (7.4-10.4); Monocytes # 0.4 10^3/uL (0.2-0.9); Monocytes % 10.7 %; Neutrophils # 1.75 10^3/uL (1.8-7.7); Neutrophils % 44.3 %; Nucleated Red Blood Cells % 0 %; Platelet Count 226 10^3/cmm (157-399); Red Blood Count 4.59 10^6/uL (3.85-5.65); White Blood Count 3.94 10^3/uL (3.29-11.43)
[2023-11-02 16:25] LABS: Amphetamines Screen Urine Negative (Negative); Barbiturates Screen Urine Negative (Negative); Benzodiazepines Screen Urine Negative (Negative); Cocaine Screen Urine Negative (Negative); Opiate Screen Urine Negative (Negative); PCP Screen Urine Negative (Negative); THC Screen Urine Negative (Negative)
[2023-11-02 16:25] LABS: Alanine Aminotransferase 20 U/L (0-41); Albumin Level 4.3 g/dL (3.5-5.2); Alcohol Level 245 mg/dL (0-10); Alkaline Phosphatase 63 U/L (40-130); Anion Gap 16.9 (5-19); Aspartate Amino Transferase 19 U/L (0-40); Blood Urea Nitrogen 14 mg/dL (6-20); Calcium 9.1 mg/dL (8.5-10.5); Carbon Dioxide 26 mmol/L (22-29); Chloride 105 mmol/L (98-107); Creatinine Clr Calc Pharmacy 156.1274; Glomerular Filtration Rate 135.3 mL/min (90-130); Glucose 110 mg/dL (65-115); Osmolality Calculated 299 mOsm/kg (285-295); Potassium 3.9 mmol/L (3.5-5.1); Sodium 144 mmol/L (136-145); Thyroid Stimulating Hormone 1.41 uIU/mL (0.27-4.20); Total Bilirubin 0.4 mg/dL (0.15-1.2); Total Protein 7.3 g/dL (6.6-8.7)
[2023-11-02 16:26] LABS: Acetaminophen < 5.0 ug/mL (10-30); Salicylate < 0.3 mg/dL (3-10)
[2023-11-02 17:17] VITALS: BP 130/90; PULSE 88; RESP 19; O2SAT 97
== END 2023-11-02 17:19 | disposition home or self-care (01) ==
PROVIDERS: Emergency Provider Emergency Medicine
DX: F10.129 Alcohol abuse with intoxication, unspecified (principal); Y90.8 Blood alcohol level of 240 mg/100 ml or more; R00.0 Tachycardia, unspecified; Z87.891 Personal history of nicotine dependence
CPT/HCPCS: 36415; 71045; 80053; 80306; 80307; 81001; 84443; 85025; 93005; 99285

== ENCOUNTER 2023-11-13 09:28 | Emergency (ER) | payer MEDICAID, SELFPAY ==
[2023-11-13 10:01] VITALS: BP 121/79; PULSE 91; RESP 18; TEMP 36.4; O2SAT 98
--- NOTE | 2023-11-13 10:40 | PC.PHAR ---
patient stated two different times that he does not take any medication even though there are a few current meds on his list. ondansetron 8mg 11/09/23 trazodone 100mg 11/09/23 gabapentin 300mg 11/09/23 propranolol 20mg 11/09/23 clonazepam 1mg 10/20/23
--- NOTE | 2023-11-13 10:46 | ED_ITS ---
HPI - Nausea/Vomiting/Diarrhea 2 General: Chief complaint: Nausea/Vomiting/Diarrhea Stated complaint: Diarrhea Time Seen by Provider: 11/13/23 09:29 Source: patient Mode of arrival: ambulatory Limitations: no limitations History of Present Illness: Patient is a 28-year-old male who is well-known to our emergency department here for complaints of diarrhea starting around 10 PM yesterday evening. He states he has had anywhere from 30-50 watery diarrhea stools. He is not having any abdominal pain. No nausea or vomiting. Denies poor food exposures. He has had recent antibiotic use due to dental pain. He is complaining of dental pain currently. He states he has a dental appointment scheduled for Thursday. MD elicited complaint: diarrhea Onset (ago): hour(s) Description of diarrhea: watery and black tarry Associated nausea: No Associated abdominal pain: No Location of pain: None Severity: moderate Exacerbating factors: eating Relieving factors: none Associated symtoms: Denies chest pain, dizziness, dysuria, fatigue, headache(s), malaise or nausea Related Data Home Medications Medication Instructions Recorded Confirmed No Known Home Medications 11/13/23 11/13/23 Allergies Allergy/AdvReac Type Severity Reaction Status Date / Time cephalexin Allergy ADR-Nausea Verified 11/11/23 10:42 cyclobenzaprine Allergy ALGY-Hives Verified 11/11/23 10:42 [From Flexeril] hydroxyzine Allergy ADR-Halluci Verified 11/11/23 10:42 nating tramadol Allergy Unknown Verified 11/11/23 10:42 Review of Systems 2 Const: Denies: fever(s), chills, body aches, fatigue or malaise ENMT: Reports: dental pain Card: Denies: chest pain Resp: Denies: dyspnea GI: Reports: diarrhea and other (reports diarrhea is black in color); Denies: abdominal pain, nausea, vomiting, hematemesis or GI cramping : Denies: flank pain, difficulty urinating, dysuria, urinary frequency, urinary urgency or urinary hesitancy Musc: Denies: neck pain, back pain, extremity pain, extremity swelling, joint pain or joint swelling Skin/Breast: Denies: rash Neuro: Denies: headache(s) or dizziness PFSH ED 2 PFSH: Medical History Alcohol use disorder Alcohol withdrawal syndrome Alcohol withdrawal seizure Alcoholic intoxication PTSD (post-traumatic stress disorder) Generalized anxiety disorder Seizures ADHD Broken jaw Panic disorder Major depressive disorder No pertinent family history Surgical History No pertinent past surgical history Family History Mother Anxiety Grandfather Heart disease Stroke Anxiety Dementia Social History Smoking and tobacco/nicotine status: former use of tobacco/nicotine Alcohol intake: current Alcohol intake frequency: 3 or more drinks per day Alcohol type: hard liquor Substance/Drug Use: current Marital status: Single service: No Current occupational status: unemployed and disabled Current gender identity: Male Special annika needs: No Physical Exam 2 Const: COMMON NORMALS: no acute distress, average body habitus, patient oriented x3, no limitations, healthy appearing, alert and well nourished G ENERAL APPEARANCE: cooperative ORIENTATION/CONSCIOUSNESS: Yes awake, Yes oriented to person, Yes oriented to place and Yes oriented to time HENMT: COMMON NORMALS: normocephalic and atraumatic HEAD & SCALP: normal to inspection, normocephalic and atraumatic FACE & SINUS: normal facial exam; no sinus tenderness and no edema TEETH & GINGIVA: Yes caries, Yes poor dentition and Yes other (pain to impacted L lower 3rd molar) Resp: COMMON NORMALS: normal respiratory effort and clear to auscultation bilaterally AUSCULTATION: clear to auscultation bilaterally Cardio: COMMON NORMALS: regular rate and regular rhythm RATE: regular rate RHYTHM: regular rhythm GI: COMMON NORMALS: Soft to palpation, non-tender, No hepatosplenomegaly present and no masses INSPECTION: Yes normal to inspection AUSCULTATION: Y es Hyperactive bowel sounds present PALPATION: Yes Soft to palpation, No Tenderness to palpation present (GI), No Guarding due to palpation present (GI), No Rigid due to palpation and Yes No hepatosplenomegaly present Extremity: GENERAL: Yes normal exam except as noted Neuro: CRISTAL COMA SCALE: document GCS findings Gladys coma scale eye opening: Spontaneous Cristal coma scale verbal response: Orientated Cristal coma scale motor response: Obey commands Cristal coma scale total score: 15 COMMON NORMALS: patient oriented x3, moves all extremities, no focal motor deficits, no sensory deficits noted and gait normal SENSORIUM/ORIENTATION: Yes alert, Yes oriented to person, Yes oriented to place and Yes oriented to time Skin: COMMON NORMALS: no rashes or lesions noted GENERAL SKIN EXAM: no rashes or lesions noted Course 2 Vital Signs: Vital signs: Vital Signs Temperature 97.6 F 11/13/23 10:01 Pulse Rate 68 11/13/23 12:37 Respiratory Rate 18 11/13/23 10:01 Blood Pressure 138/89 11/13/23 12:37 Pulse Oximetry 100 11/13/23 12:37 Oxygen Delivery Me thod Room Air 11/13/23 10:01 MDM - Nausea/Vomiting/Diarrhea Medical Decision Making Patient appearing in absolutely no acute distress. His vital signs are stable. He has no abdominal pain. He does not appear hypovolemic. It would be hard for me to believe based on his presentation, vitals, and labs that he truly had 30- 50 diarrhea stool since 10 PM yesterday evening. Upon repeat examination he actually tells me that he has went closer to 100-200 times since yesterday. Diarrhea was visualized here and does not appear black. Hemoccult negative. His C.diff is negative. Will do stool cultures. Recommend conservative therapies at home as symptoms should be self-limiting. Will have him follow up with PCP next week. Return precautions given. He will follow up on Thursday as scheduled with dentist for his dental pain. Medical Records I reviewed the patient's medical records. Lab Data I reviewed the patient's lab results. 11/13/23 10:43 11/13/23 10:43 Laboratory Results WBC 5.78 10^3/uL (3.29-11.43) 11/13/23 10:43 RBC 3.96 10^6/uL (3.85-5.65) 11/13/23 10:43 Hgb 12.60 g/dL (11.27-16.99) 11/13/23 10:43 Hct 38.7 % (37-53) 11/13/23 10:43 MCV 97.7 fl (82-101) 11/13/23 10:43 MCH 31.8 pg (27-33) 11/13/23 10:43 MCHC 32.6 g/dL (30-55) 11/13/23 10:43 RDW 13.2 % (12.1-15.1) 11/13/23 10:43 Plt Count 201 10^3/cmm (157-399) 11/13/23 10:43 MPV 10.5 fL (7.4-10.4) H 11/13/23 10:43 Neut % (Auto) 62.3 % 11/13/23 10:43 Lymph % (Auto) 19.7 % 11/13/23 10:43 [place] % (Auto) 12.3 % 11/13/23 10:43 Eos % (Auto) 4.2 % 11/13/23 10:43 Baso % (Auto) 0.5 % 11/13/23 10:43 Neut # (Auto) 3.60 10^3/uL (1.8-7.7) 11/13/23 10:43 Lymph # (Auto) 1.1 10^3/uL (0.8-4.8) 11/13/23 10:43 [place] # (Auto) 0.7 10^3/uL (0.2-0.9) 11/13/23 10:43 Eos # (Auto) 0.2 10^3/uL (0.0-0.8) 11/13/23 10:43 Baso # (Auto) 0.0 10^3/uL (0.0-0.1) 11/13/23 10:43 Nucleated RBC % (auto) 0 % 11/13/23 10:43 Nucleated RBCs # 0.0 /100WBC 11/13/23 10:43 Sodium 141 mmol/L (136-145) 11/13/23 10:43 Potassium 4.2 mmol/L (3.5-5.1) 11/13/23 10:43 Chloride 109 mmol/L (98-107) H 11/13/23 10:43 Carbon Dioxide 23 mmol/L (22-29) 11/13/23 10:43 Anion Gap 13.2 (5-19) 11/13/23 10:43 BUN 11 mg/dL (6-20) 11/13/23 10:43 Creatinine 0.8 mg/dL (0.7-1.2) 11/13/23 10:43 GFR Calculation 116.0 mL/min (90-130) 11/13/23 10:43 Glucose 98 mg/dL (65-115) 11/13/23 10:43 Calculated Osmolality 291 mOsm/kg (285-295) 11/13/23 10:43 Calcium 8.2 mg/dL (8.5-10.5) L 11/13/23 10:43 Total Bilirubin 0.2 mg/dL (0.15-1.2) 11/13/23 10:43 AST 10 U/L (0-40) 11/13/23 10:43 ALT 9 U/L (0-41) 11/13/23 10:43 Alkaline Phosphatase 57 U/L (40-130) 11/13/23 10:43 Total Protein 6.2 g/dL (6.6-8.7) L 11/13/23 10:43 Albumin 3.7 g/dL (3.5-5.2) 11/13/23 10:43 Globulin 2.5 g/dL (1.3-4.6) 11/13/23 10:43 Lipase 26 U/L (13-60) 11/13/23 10:43 Urine Color Yellow (Yellow) 11/13/23 11:54 Urine Appearance Clear (CLEAR) 11/13/23 11:54 Urine pH 5.5 (5-7) 11/13/23 11:54 Ur Specific [place] 1.014 (1.005-1.030) 11/13/23 11:54 Urine Protein Negative (Negative) 11/13/23 11:54 Urine Glucose (UA) Negative (Normal) 11/13/23 11:54 Urine Ketones Negative (Negative) 11/13/23 11:54 Urine Blood 1+ (Negative) A 11/13/23 11:54 Urine Nitrate Negative (Negative) 11/13/23 11:54 Urine Bilirubin Negative (Negative) 11/13/23 11:54 Urine Urobilinogen 0.2 mg/dL (Negative) 11/13/23 11:54 Ur Leukocyte Esterase Negative (Negative) 11/13/23 11:54 Urine RBC 3-5 /hpf (0-2) 11/13/23 11:54 Urine WBC 0-5 /hpf (0-5) 11/13/23 11:54 Ur Squamous Epith Cells 0-5 /hpf (0-5) 11/13/23 11:54 Amorphous Sediment Not Reportable 11/13/23 11:54 Urine Bacteria None seen /hpf (NONE) 11/13/23 11:54 Hyaline Casts 0.40 /lpf 11/13/23 11:54 C. difficile (PCR) Negative (Negative) 11/13/23 10:45 No radiology studies performed this visit Discharge Plan Discharge Patient Disposition: Home Clinical Impression: Toothache Diarrhea Qualifiers: Diarrhea type: unspecified type Qualified Code(s): R19.7 - Diarrhea, unspecified Condition: Stable Prescriptions: No Action No Known Home Medications Discharge Orders: Discharge ED (Routine); Ordered 11/13/23 Ordered By: Gaby Mcconnell Patient Instructions: Acute Diarrhea (ED), Toothache (ED) Activity Restrictions/Additional Instructions: Please follow-up with your dentist as scheduled on Thursday. You also need to follow-up with primary care next week if diarrhea persist. You may return to the emergency department for onset of abdominal pain, fevers, worsening diarrhea, repetitive episodes of vomiting, generally feeling worse or unwell, or any other concerns you may have. Coding Level of Care Code ED Cnc Programmer for Audelia Tubbs
[2023-11-13 11:00] LABS: Basophils % 0.5 %; Eosinophils # 0.2 10^3/uL (0.0-0.8); Eosinophils % 4.2 %; Hematocrit 38.7 % (37-53); Lymphocytes # 1.1 10^3/uL (0.8-4.8); Lymphocytes % 19.7 %; Mean Corpuscular HGB Conc 32.6 g/dL (30-55); Mean Corpuscular Hemoglobin 31.8 pg (27-33); Mean Corpuscular Volume 97.7 fl (82-101); Mean Platelet Volume 10.5 fL (7.4-10.4); Monocytes # 0.7 10^3/uL (0.2-0.9); Monocytes % 12.3 %; Neutrophils % 62.3 %; Nucleated Red Blood Cells % 0 %; Platelet Count 201 10^3/cmm (157-399); Red Blood Count 3.96 10^6/uL (3.85-5.65); Red Cell Distribution Width 13.2 % (12.1-15.1); White Blood Count 5.78 10^3/uL (3.29-11.43)
[2023-11-13 11:16] LABS: Alanine Aminotransferase 9 U/L (0-41); Albumin Level 3.7 g/dL (3.5-5.2); Alkaline Phosphatase 57 U/L (40-130); Anion Gap 13.2 (5-19); Aspartate Amino Transferase 10 U/L (0-40); Blood Urea Nitrogen 11 mg/dL (6-20); Calcium 8.2 mg/dL (8.5-10.5); Carbon Dioxide 23 mmol/L (22-29); Chloride 109 mmol/L (98-107); Globulin 2.5 g/dL (1.3-4.6); Glucose 98 mg/dL (65-115); Lipase 26 U/L (13-60); Osmolality Calculated 291 mOsm/kg (285-295); Potassium 4.2 mmol/L (3.5-5.1); Sodium 141 mmol/L (136-145); Total Bilirubin 0.2 mg/dL (0.15-1.2); Total Protein 6.2 g/dL (6.6-8.7)
[2023-11-13] MEDS: sodium chloride 0.9% 1,000 ML 999 ML IV (11:34)
[2023-11-13 12:00] LABS: C.Diff PCR (Lab) NEGATIVE (Negative)
[2023-11-13 12:03] LABS: Bilirubin Urine Negative (Negative); Blood Urine 1+ (Negative); Glucose Urine UA Negative (Normal); Ketones Urine Negative (Negative); Leukocyte Esterase Urine Negative (Negative); Nitrate Urine Negative (Negative); Protein Urine Negative (Negative); Specific Gravity, Urine 1.014 (1.005-1.030); Urine Appearance Clear (CLEAR); Urine Color Yellow (Yellow); Urobilinogen Urine 0.2 mg/dL (Negative); pH Urine 5.5 (5-7)
[2023-11-13 12:07] LABS: Add Urine Microscopic? YES; Bacteria Urine None Seen /hpf; Squamous Epithelial Cell Urine 0-5 /hpf (0-5); WBC Urine 0-5 /hpf (0-5)
[2023-11-13] MEDS: acetaminophen-codeine 300-30mg Tablet 1 TAB PO (12:09)
[2023-11-13] MEDS: lidocaine 2% INJ 20 mL INJECTION (12:12)
[2023-11-13 12:37] VITALS: BP 138/89; PULSE 68; O2SAT 100
[2023-11-13] MEDS: acetaminophen-codeine 300-30mg Tablet 2 TAB PO (13:03)
[2023-11-13 13:12] VITALS: BP 131/92; PULSE 65; O2SAT 100
--- NOTE | 2023-11-13 15:00 | PC.NURSE ---
Basilia RN from [facility] called and was questioning pts medications that were sent with him. pt had 2 Tylenol #3 in an Lysanda envelope that this RN stapled and taped shut. provider instructed this rn to seal envelope and send back with patient. The envelope included the patients name, , medication enclosed, and how to take the medication. employee from [facility] stated there was no medications given to the d/c per paperwork. this rn informed RN that we dont put it in the d/c instructions if there is no prescription transmitted anywhere.
== END 2023-11-13 13:14 | disposition home or self-care (01) ==
PROVIDERS: Emergency Provider Physician Assistant
DX: K08.89 Other specified disorders of teeth and supporting structures (principal); R19.7 Diarrhea, unspecified; Z87.891 Personal history of nicotine dependence
CPT/HCPCS: 36415; 80053; 81001; 82274; 83630; 83690; 85025; 87045; 87177; 87209; 87427; 87449; 87493; 96360; 99284; J7030

== ENCOUNTER 2023-11-15 15:52 | Emergency (ER) | payer MEDICAID, SELFPAY ==
[2023-11-15 15:57] VITALS: BP 133/89; PULSE 74; RESP 18; TEMP 36.6; O2SAT 97; BMI 23.1
--- NOTE | 2023-11-15 17:11 | ED_ITS ---
HPI - Dental/Oral General: Chief complaint: Dental/Oral Stated complaint: Extreme Tooth Pain Time Seen by Provider: 11/15/23 17:04 History of Present Illness: 28-year-old male patient comes in today with left lower jaw pain. Patient has been seen in twice this week already for his complaints. Patient appears nontoxic. No significant swelling is noted to the face. Patient appears in moderate pain. Related Data Home Medications Medication Instructions Recorded Confirmed No Known Home Medications 11/13/23 11/13/23 Allergies Allergy/AdvReac Type Severity Reaction Status Date / Time cephalexin Allergy ADR-Nausea Verified 11/15/23 16:00 cyclobenzaprine Allergy ALGY-Hives Verified 11/15/23 16:00 [From Flexeril] hydroxyzine Allergy ADR-Halluci Verified 11/15/23 16:00 nating tramadol Allergy Unknown Verified 11/15/23 16:00 Review of Systems General: Reports: 10 or more systems reviewed and unremarkable except in HPI and below PFSH ED PFSH: Medical History Alcohol use disorder Alcohol withdrawal syndrome Alcohol withdrawal seizure Alcoholic intoxication PTSD (post-traumatic stress disorder) Generalized anxiety disorder Seizures ADHD Broken jaw Panic disorder Major depressive disorder No pertinent family history Surgical History No pertinent past surgical history Family History Mother Anxiety Grandfather Heart disease Stroke Anxiety Dementia Social History Smoking and tobacco/nicotine status: former use of tobacco/nicotine Alcohol intake: current Alcohol intake frequency: 3 or more drinks per day Alcohol type: hard liquor Substance/Drug Use: current Marital status: Single service: No Current occupational status: unemployed and disabled Current gender identity: Male Special annika needs: No Physical Exam Const: COMMON NORMALS: alert HENMT: COMMON NORMALS: normocephalic HEAD & SCALP: normocephalic TEETH & GINGIVA: no abnormal tooth and associated gingiva Neck/C-Spine: COMMON NORMALS: full ROM Resp: COMMON NORMALS: normal respiratory effort Cardio: COMMON NORMALS: regular rate RATE: regular rate Extremity: COMMON NORMALS: normal to inspection Neuro: SENSORIUM/ORIENTATION: Yes alert Skin: COMMON NORMALS: turgor normal GENERAL SKIN EXAM: turgor normal Course Vital Signs: Vital signs: Vital Signs Temperature 97.8 F 11/15/23 15:57 Pulse Rate 71 11/15/23 18:46 Respiratory Rate 16 11/15/23 18:46 Blood Pressure 131/82 11/15/23 18:46 Pulse Oximetry 98 11/15/23 18:46 Oxygen Delivery Me thod Room Air 11/15/23 15:57 MDM - Dental/Oral Medical Decision Making 28-year-old male patient comes in today with complaints of left lower jaw pain radiating to his left ear. On exam bilateral TMs are clear. Posterior pharynx is pink and symmetrical. Gingiva appears pink without any signs of swelling. Patient does appear to have a impacted third molar. Differential diagnosis includes dental caries, dental pain, dental abscess. No signs of abscess was noted. Patient was given a dose of Toradol and viscous lidocaine for his pain. Patient also requested Tylenol and it was given. Patient was recommended to follow-up with dentist for definitive care. Patient reported a dental appointment tomorrow. No radiology studies performed this visit Discharge Plan Discharge Patient Disposition: Home Clinical Impression: Pain, dental Condition: Stable Prescriptions: No Action No Known Home Medications Discharge Orders: Discharge ED (Routine); Ordered 11/15/23 Ordered By: Christopher Mccartney Discharge Diet: Usual diet Discharge Activity: Increase activity as tolerated Patient Instructions: Toothache (ED) Activity Restrictions/Additional Instructions: Follow-up with dentist for further care and treatment. Return to ED for new concerns. 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
[2023-11-15] MEDS: ketorolac 30 mg/mL INJ IM (17:31)
[2023-11-15] MEDS: lidocaine 2% viscous 15 mL UDC 5 ML MUCOUS MEM (17:31)
[2023-11-15] MEDS: acetaminophen 500 mg Tablet 1000 MG PO (17:58)
[2023-11-15 18:46] VITALS: BP 131/82; PULSE 71; RESP 16; O2SAT 98
== END 2023-11-15 18:00 | disposition home or self-care (01) ==
PROVIDERS: Emergency Provider Nurse Practitioner Family
DX: K08.89 Other specified disorders of teeth and supporting structures (principal); Z87.891 Personal history of nicotine dependence
CPT/HCPCS: 96372; 99284; J1885

== ENCOUNTER 2024-01-04 19:18 | Emergency (ER) | payer MEDICAID, SELFPAY ==
[2024-01-04 19:25] VITALS: BP 154/96; PULSE 98; RESP 16; TEMP 36.8; O2SAT 97; BMI 22.8
--- NOTE | 2024-01-04 19:39 | ED_ITS ---
HPI - Abdominal Pain 2 General: Chief Complaint: Abdominal Pain Stated Complaint: Back\ADD Painb Vomiting Time Seen by Provider: 01/04/24 19:37 Source: patient Mode of arrival: ambulatory Limitations: no limitations History of Present Illness: Patient states he has had some abdominal pain today and did not feel that he could go back to work today and when he called them they told him he had to have a work note. He said he went to the urgent care but it was too late and so therefore he is in the emergency department. He states the pain is coming a general abdomen. There is no radiation no change with eating or drinking. He states he feels the urge to have a bowel movement. He states he was able to drink water later in the day and had some chicken noodle soup and feels better. He is currently in the middle of an ongoing evaluation by general surgery for upper and lower endoscopy as well as biliary tract ultrasound. He denies any food inciting pain related to his current presentation. He denies any known exposure to infectious disease. He has not any fevers or chills. Context: history of similar episodes Associated Symptoms: Reports nausea; Denies chills, diarrhea, dysuria, fever(s), melena and vomiting Related Data Home Medications Medication Instructions Recorded Confirmed baclofen 10 mg tablet 10 mg PO TID 12/01/23 12/24/23 lidocaine HCl 2 % mucosal solution 1 applic mucous membrane BID 12/01/23 12/24/23 (Lidocaine Viscous) clonazepam 0.5 mg tablet 0.25 mg PO ONCE PRN 12/24/23 12/24/23 Previous Rx's Medication Instructions Recorded ferrous sulfate 325 mg (65 mg 325 mg PO DAILY #30 tabs 12/16/23 iron) tablet (FeroSul) famotidine 40 mg tablet (Pepcid) 40 mg PO DAILY #30 tabs 01/04/24 Allergies Allergy/AdvReac Type Severity Reaction Status Date / Time cephalexin Allergy ADR-Nausea Verified 12/24/23 09:01 cyclobenzaprine Allergy ALGY-Hives Verified 12/24/23 09:01 [From Flexeril] hydroxyzine Allergy ADR-Halluci Verified 12/24/23 09:01 nating tramadol Allergy Unknown Verified 12/24/23 09:01 Review of Systems 2 Const: Denies: fever(s) or chills ENMT: Denies: throat pain, odynophagia, nasal discharge or nasal congestion Card: Denies: chest pain or palpitations Resp: Denies: dyspnea, productive cough or non-productive cough GI: Reports: abdominal pain and nausea; Denies: vomiting, diarrhea or melena : Denies: flank pain, difficulty urinating, dysuria or urinary frequency Musc: Denies: neck pain, back pain, extremity pain or extremity swelling Skin/Breast: Denies: rash Neuro: Denies: headache(s), numbness in extremities or weakness in extremities PFSH ED 2 PFSH: Medical History Psychiatric care Alcohol use disorder Alcohol withdrawal syndrome Alcohol withdrawal seizure Alcoholic intoxication PTSD (post-traumatic stress disorder) Generalized anxiety disorder Seizures ADHD Broken jaw Panic disorder Major depressive disorder No pertinent family history Surgical History No pertinent past surgical history Family History Mother Anxiety Grandfather Heart disease Stroke Anxiety Dementia Social History Smoking and tobacco/nicotine status: former use of tobacco/nicotine Alcohol intake: current Alcohol intake frequency: 3 or more drinks per day Alcohol type: hard liquor Substance/Drug Use: current Marital status: Single service: No Current occupational status: unemployed and disabled Current gender identity: Male Special annika needs: No Physical Exam 2 Narrative: EXAM NARRATIVE: Appears to be comfortable and in no acute distress he is cooperative during examination. Makes good eye contact his speech is goal-directed and fluent. Const: COMMON NORMALS: no acute distress, average body habitus, healthy appearing and alert GENERAL APPEARANCE: cooperative HENMT: COMMON NORMALS: Normal nasal mucous membranes and turbinates present, moist oral mucous membranes and oropharynx normal HEAD & SCALP: contusion; no laceration FACE & SINUS IMAGES: 1. Skin contusion NOSE: Normal nasal mucous membranes and turbinates present Eye: COMMON NORMALS: Equal, round and reactive pupils present and EOMs intact bilaterally CONJUNCTIVA: Yes conjunctival abnormal (Small subconjunctival hemorrhage) positive right SCLERA: scleral abnormal Laterality of scleral abnormality: positive right PUPIL: Yes Equal, round and reactive pupils present Neck/C-Spine: COMMON NORMALS: full ROM and supple Resp: COMMON NORMALS: normal respiratory effort, No use of accessory muscles and clear to auscultation bilaterally AUSCULTATION: clear to auscultation bilaterally Cardio: COMMON NORMALS: regular rate, regular rhythm, No murmurs present (Cardio) and Peripheral pulses 2+ throughout RATE: regular rate RHYTHM: r egular rhythm PERIPHERAL PULSES: Peripheral pulses 2+ throughout GI: COMMON NORMALS: Normal to inspection, nondistended, normoactive bowel sounds present, Soft to palpation, non-tender and no masses PALPATION: Yes Soft to palpation Neuro: COMMON NORMALS: moves all extremities, no focal motor deficits, no sensory deficits noted and gait normal SENSORIUM/ORIENTATION: Yes alert C RANIAL NERVES: Yes CN normal except as noted Psych: COMMON NORMALS: mental status grossly normal Skin: COMMON NORMALS: no rashes or lesions noted and turgor normal GENERAL SKIN EXAM: no rashes or lesions noted and turgor normal Course 2 Reevaluation(s): Reevaluation #1: Patient reevaluated. He just had a bowel movement without any issues. He has no peritoneal signs on repeat examination. His laboratories are reassuring his hemoglobin is improved from his last hemoglobin within our records. Transaminase, alk phos total bilirubin are also normal. No evidence at this time of any acute emergency medical condition. I discussed the fact that iron symptoms sometimes cause abdominal cramping and constipation. He is also had a history of upper abdominal discomfort and questionable blood loss we will go ahead and place him on a course of Pepcid empirically. Discussed the need to continue his workup with general surgery. Also discussed return precautions. Time: 20:35 Vital Signs: Vital signs: Vital Signs Temperature 98.2 F 01/04/24 19:25 Pulse Rate 98 01/04/24 19:25 Respiratory Rate 16 01/04/24 19:25 Blood Pressure 154/96 01/04/24 19:25 Pulse Oximetry 97 01/04/24 19:25 Oxygen Delivery Me thod Room Air 01/04/24 19:25 MDM - Abdominal Pain Medical Decision Making Patient presented to the emergency department as noted in history of present illness. Patient has a longstanding history of recurrent abdominal pain has had multiple ED visits for that condition. He is in the middle of an ongoing workup by general surgery. His clinical exam did not suggest surgical abdomen at this time but screening laboratories were obtained which were also reassuring. Unlikely to be a surgical condition at this time given his reassuring clinical exam, normal vital signs, normal laboratories this evening. Certainly clinically stable at this time to continue his outpatient workup. He has been placed on Pepcid 40 mg empirically for the next 2 weeks. Return precautions were also reviewed. Patient did request a work note which was given. Medical Records I reviewed the patient's medical records. Number of presentations over this past year for abdominal pain some of which were during that period of time he was incarcerated. He is recently was seen by general surgery who evaluated via upper endoscopy and scheduled biliary ultrasound. Lab Data 01/04/24 20:02 01/04/24 20: Labs/Radiology: Laboratory Results WBC 5.27 10^3/uL (3.29-11.43) 01/04/24 20: RBC 4.61 10^6/uL (3.85-5.65) 01/04/24 20: Hgb 14.40 g/dL (11.27-16.99) 01/04/24 20: Hct 43.1 % (37-53) 01/04/24 20: MCV 93.5 fl (82-101) 01/04/24 20: MCH 31.2 pg (27-33) 01/04/24 20: MCHC 33.4 g/dL (30-55) 01/04/24 20: RDW 13.0 % (12.1-15.1) 01/04/24 20: Plt Count 238 10^3/cmm (157-399) 01/04/24 20: MPV 9.8 fL (7.4-10.4) 01/04/24 20: Neut % (Auto) 62.8 % 01/04/24 20: Lymph % (Auto) 25.6 % 01/04/24 20: Elk % (Auto) 10.4 % 01/04/24 20: Eos % (Auto) 0.2 % 01/04/24 20: Baso % (Auto) 0.8 % 01/04/24 20: Neut # (Auto) 3.31 10^3/uL (1.8-7.7) 01/04/24 20: Lymph # (Auto) 1.4 10^3/uL (0.8-4.8) 01/04/24 20:02 Elk # (Auto) 0.6 10^3/uL (0.2-0.9) 01/04/24 20:02 Eos # (Auto) 0.0 10^3/uL (0.0-0.8) 01/04/24 20:02 Baso # (Auto) 0.0 10^3/uL (0.0-0.1) 01/04/24 20:02 Nucleated RBC % (auto) 0 % 01/04/24 20:02 Nucleated RBCs # 0.0 /100WBC 01/04/24 20:02 Sodium 136 mmol/L (136-145) 01/04/24 20: Potassium 3.9 mmol/L (3.5-5.1) 01/04/24 20: Chloride 99 mmol/L (98-107) 01/04/24 20: Carbon Dioxide 25 mmol/L (22-29) 01/04/24 20: Anion Gap 15.9 (5-19) 01/04/24 20:02 BUN 9 mg/dL (6-20) 01/04/24 20:02 Creatinine 0.9 mg/dL (0.7-1.2) 01/04/24 20:02 GFR Calculation 101.2 mL/min (90-130) 01/04/24 20:02 Glucose 106 mg/dL (65-115) 01/04/24 20:02 Calculated Osmolality 281 mOsm/kg (285-295) L 01/04/24 20: Calcium 9.4 mg/dL (8.5-10.5) 01/04/24 20:02 Total Bilirubin 1.1 mg/dL (0.15-1.2) 01/04/24 20:02 AST 18 U/L (0-40) 01/04/24 20:02 ALT 14 U/L (0-41) 01/04/24 20:02 Alkaline Phosphatase 81 U/L (40-130) 01/04/24 20:02 Total Protein 7.2 g/dL (6.6-8.7) 01/04/24 20:02 Albumin 4.4 g/dL (3.5-5.2) 01/04/24 20:02 Globulin 2.8 g/dL (1.3-4.6) 01/04/24 20:02 Lipase 18 U/L (13-60) 01/04/24 20:02 No radiology studies performed this visit Discharge Plan Discharge Patient Disposition: Home Clinical Impression: Abdominal pain Qualifiers: Abdominal location: unspecified location Qualified Code(s): R10.9 - Unspecified abdominal pain Condition: Stable Prescriptions: New famotidine [Pepcid] 40 mg tablet 40 mg PO DAILY Qty: 30 0RF No Action clonazepam 0.5 mg tablet 0.25 mg PO ONCE PRN lidocaine HCl [Lidocaine Viscous] 2 % solution 1 applic mucous membrane BID baclofen 10 mg tablet 10 mg PO TID ferrous sulfate [FeroSul] 325 mg (65 mg iron) tablet 325 mg PO DAILY Qty: 30 5RF Discharge Orders: Discharge ED (Routine); Ordered 01/04/24 Ordered By: Mike Alvarado Discharge Diet: Usual diet Discharge Activity: Resume usual activity Patient Instructions: Abdominal Pain (ED), Opioid Safety, Pain Management Activity Restrictions/Additional Instructions: As we discussed there was no indication of a serious condition while you are in the emergency department this evening. We have prescribed a medicine to help decrease acid production and stomach irritation that you should take daily. You should follow-up with general surgery regarding your planned endoscopy and other imaging studies. If you develop any new or worsening symptoms or other concerns you are welcome to return to the emergency department at any time. 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
[2024-01-04 20:09] LABS: Basophils % 0.8 %; Eosinophils % 0.2 %; Hematocrit 43.1 % (37-53); Lymphocytes # 1.4 10^3/uL (0.8-4.8); Lymphocytes % 25.6 %; Mean Corpuscular HGB Conc 33.4 g/dL (30-55); Mean Corpuscular Hemoglobin 31.2 pg (27-33); Mean Corpuscular Volume 93.5 fl (82-101); Mean Platelet Volume 9.8 fL (7.4-10.4); Monocytes # 0.6 10^3/uL (0.2-0.9); Monocytes % 10.4 %; Neutrophils # 3.31 10^3/uL (1.8-7.7); Neutrophils % 62.8 %; Nucleated Red Blood Cells % 0 %; Platelet Count 238 10^3/cmm (157-399); Red Blood Count 4.61 10^6/uL (3.85-5.65); White Blood Count 5.27 10^3/uL (3.29-11.43)
[2024-01-04 20:27] LABS: Alanine Aminotransferase 14 U/L (0-41); Albumin Level 4.4 g/dL (3.5-5.2); Alkaline Phosphatase 81 U/L (40-130); Anion Gap 15.9 (5-19); Aspartate Amino Transferase 18 U/L (0-40); Blood Urea Nitrogen 9 mg/dL (6-20); Calcium 9.4 mg/dL (8.5-10.5); Carbon Dioxide 25 mmol/L (22-29); Chloride 99 mmol/L (98-107); Creatinine Clr Calc Pharmacy 123.0145; Globulin 2.8 g/dL (1.3-4.6); Glomerular Filtration Rate 101.2 mL/min (90-130); Glucose 106 mg/dL (65-115); Lipase 18 U/L (13-60); Osmolality Calculated 281 mOsm/kg (285-295); Potassium 3.9 mmol/L (3.5-5.1); Sodium 136 mmol/L (136-145); Total Bilirubin 1.1 mg/dL (0.15-1.2); Total Protein 7.2 g/dL (6.6-8.7)
[2024-01-04] MEDS: famotidine 20 mg Tablet 40 MG PO (20:45)
[2024-01-04 20:53] VITALS: BP 148/94; PULSE 94; RESP 16; O2SAT 98
== END 2024-01-04 20:49 | disposition home or self-care (01) ==
PROVIDERS: Emergency Provider Emergency Medicine
DX: R10.9 Unspecified abdominal pain (principal); Z87.891 Personal history of nicotine dependence
CPT/HCPCS: 80053; 83690; 85025; 99283

== ENCOUNTER → 2024-01-19 17:34 | Outpatient (BNVA) | payer MEDICAID, SELFPAY | PROVIDERS: Visit Provider Emergency Medicine | DX: R50.9 Fever, unspecified (principal) | CPT/HCPCS: 87400; 87426 ==

== ENCOUNTER 2024-01-27 15:16 | Outpatient (CLI) | payer MEDICAID, SELFPAY ==
--- NOTE | 2024-01-27 15:23 | XRR_ITS ---
PROCEDURE INFORMATION: Exam: XR Chest Exam date and time: 01/27/2024 3:32 PM Age: 29 years old Clinical indication: Condition or disease; Lung condition and disease; Pulmonary nodule, solitary; Additional info: Lung nodule TECHNIQUE: Imaging protocol: Radiologic exam of the chest. Views: 2 views. COMPARISON: CR XR chest 1V portable [id number] 11/02/2023 2:56 PM FINDINGS: Lungs: Minimal nodular scarring in the right midlung. Pleural spaces: Unremarkable. No pleural effusion. No pneumothorax. Heart/Mediastinum: Unremarkable. No cardiomegaly. Bones/joints: Unremarkable. XR/XR chest 2V* [id number] IMPRESSION: No acute cardiopulmonary disease.
== END 2024-01-27 15:17 | disposition home or self-care (01) ==
LOC: RAD 15:19
PROVIDERS: PCP Family Medicine; Visit Provider Family Medicine
DX: R91.1 Solitary pulmonary nodule (principal)
CPT/HCPCS: 71046

== ENCOUNTER → 2024-02-11 14:20 | Outpatient (BNVA) | payer MEDICAID, SELFPAY | PROVIDERS: PCP Family Medicine | DX: R09.89 Other specified symptoms and signs involving the circulatory and respiratory systems (principal) | CPT/HCPCS: 87400; 87426 ==